=== PATIENT | female | born 1960 | race Caucasian/White ===

== ENCOUNTER → 2020-06-18 15:13 | Outpatient (BNVA) | payer MEDICAID, SELFPAY | PROVIDERS: PCP Internal Medicine; Visit Provider Hospitalist | DX: J45.40 Moderate persistent asthma, uncomplicated (principal); G47.33 Obstructive sleep apnea (adult) (pediatric); J31.0 Chronic rhinitis; Z99.89 Dependence on other enabling machines and devices; Z87.891 Personal history of nicotine dependence | CPT/HCPCS: 99212 ==

== ENCOUNTER → 2020-10-10 14:57 | Outpatient (BNVA) | payer MEDICAID, SELFPAY | PROVIDERS: PCP Internal Medicine; Visit Provider Internal Medicine Pulmonary Disease | DX: R05 Cough (principal); R07.89 Other chest pain; J45.901 Unspecified asthma with (acute) exacerbation; G47.33 Obstructive sleep apnea (adult) (pediatric); Z99.89 Dependence on other enabling machines and devices; Z88.5 Allergy status to narcotic agent | CPT/HCPCS: 99212 ==

== ENCOUNTER 2021-06-19 13:53 | Outpatient (REF) | payer MEDICAID, SELFPAY ==
--- NOTE | ~2021-06-19 | XR_ITS ---
EXAMINATION: XR CHEST CLINICAL INFORMATION: R53.83 - Other fatigue COMPARISON: Chest radiographs 12/21/2019, 02/16/2019 TECHNIQUE: 2 views of the chest were obtained. FINDINGS: The lungs are clear. There is no airspace consolidation, vascular congestion, or effusion. The costophrenic sulci are well-defined. The heart is within normal size. The hilar and mediastinal contours are normal. There is a mild pectus carinatum again seen. No acute bony abnormality. XR/XR chest 2V IMPRESSION: No acute intrathoracic disease.
--- NOTE | 2021-06-19 15:06 | PFT_ITS ---
INDICATION: Dyspnea. SPIROMETRY: FEV1 to FVC of 80% with an FEV1 of 2.32 L, which is 84% predicted and FVC of 2.89 L, which is 81% predicted. No significant response to bronchodilators noted. Maximum voluntary ventilation 99% predicted. LUNG VOLUMES: Total lung capacity 85% predicted. DIFFUSION CAPACITY: DLCO 48% predicted. COMPARISON: None. INTERPRETATION: No obstructive nor restrictive ventilatory defects identified. No significant response to bronchodilators noted. Normal maximum voluntary ventilation. Lung volumes are low normal with a total lung capacity of 85% predicted. However, the patient does have an isolated moderate diffusion impairment. Need to consider underlying pulmonary vascular conditions or anemia in addition to occult interstitial lung conditions. Clinical correlation warranted. Nathan Pantoja MD MR/MODL / [id number]
[2021-06-19 15:52] LABS: MANUAL DIFF FLAG NO
[2021-06-19 16:10] LABS: Basophils Percent Auto 0.4 % (0-2); Eosinophils Absolute Auto 0.1 X10*3/uL (0.0-0.4); Eosinophils Percent Auto 1.6 % (0-4); Hemoglobin 12.4 g/dl (12.0-16.0); Imm Gran Abs Auto 0.03 X10*3/uL (0.00-0.03); Imm Gran Pct Auto 0.4 % (0.0-0.4); Lymphocytes Percent Auto 26.4 % (20-40); Mean Corpuscular HGB Conc 31.8 g/dl (31.0-35.0); Mean Corpuscular Hemoglobin 31.2 pg (27.0-33.0); Mean Corpuscular Volume 98.2 fL (80.0-98.0); Mean Platelet Volume 10.9 fL (9.4-12.3); Monocytes Absolute Auto 0.7 X10*3/uL (0.1-1.2); Monocytes Percent Auto 9.6 % (2-11); Neutrophils Absolute Auto 4.7 x10*3/uL (2.0-8.3); Neutrophils Percent Auto 61.6 % (45-73); Platelet Count 295 X10*3/uL (160-400); Red Blood Count 3.97 X10*6/uL (4.20-5.50); Red Cell Distribution Width 12.5 % (11.0-16.0); White Blood Count 7.6 X10*3/uL (4.8-10.8)
[2021-06-19 16:33] LABS: Iron 87 mcg/dL (30-160)
[2021-06-19 16:46] LABS: Percent Iron Saturation 25 % (15-50); Total Iron Binding Capacity 354 mcg/dL (228-428); Unsaturated Iron Binding 267 ug/dL
[2021-06-19 16:54] LABS: Ferritin 45 ng/mL (10-250)
== END 2021-06-19 13:54 | disposition home or self-care (01) ==
LOC: HO.LAB 13:53
PROVIDERS: PCP Internal Medicine; Visit Provider Hospitalist
DX: R53.83 Other fatigue (principal); J45.40 Moderate persistent asthma, uncomplicated; R06.00 Dyspnea, unspecified
CPT/HCPCS: 36415; 71046; 82728; 83540; 85025; 94060; 94727; 94729; 99212

== ENCOUNTER 2021-07-09 16:30 | Outpatient (REF) | payer MEDICAID, SELFPAY ==
--- NOTE | ~2021-07-09 | CT_ITS ---
EXAMINATION: CT CHEST WITHOUT CONTRAST CLINICAL INFORMATION: Abnormal pulmonary function tests results. COMPARISON: Chest x-ray 06/19/2021. TECHNIQUE: Multidetector volumetric CT imaging of the chest was done. Axial MIP volume rendering provided. Sagittal and coronal reformatted images were obtained. This CT examination was performed using dose optimization techniques as appropriate, variously including the following: *Automated exposure control *Adjustment of mA and/or kV according to patient size (this includes techniques or standardized protocols for targeted exams where dose is matched to indication/reason for exam; i.e. 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 LUNGS: There is a 3 mm ground-glass nodule left lung apex image 112/7, a 1 mm calcified nodule in the lingula axial image 319/7. No additional nodules seen. There is no acute consolidation, mass or groundglass density. There is no interstitial thickening or bronchiectasis. MEDIASTINUM: The heart size and the great vessels are normal caliber. No coronary artery calcification seen. Central trachea and the bronchi are widely patent. No abnormal-sized mediastinal or hilar lymph nodes seen. There is no pericardial effusion. PLEURA: There is no pleural effusion. No pleural mass or thickening. AXILLA: Small shotty bilateral axillary lymph nodes seen the chest wall appears unremarkable. UPPER ABDOMEN: Visualized liver, spleen, pancreas appear unremarkable. OSSEOUS STRUCTURES: No lytic or sclerotic process seen. CT/CT chest wo con IMPRESSION: No acute cardiopulmonary process seen. There is a 3 mm ground-glass nodule left lung apex and a 1 mm calcified nodule in the lingula. Recommend follow-up as per Fleischner guidelines. Fleischner guidelines were followed.
== END 2021-07-09 16:31 | disposition home or self-care (01) ==
LOC: HO.CT 16:30
PROVIDERS: PCP Internal Medicine; Visit Provider Hospitalist
DX: R06.00 Dyspnea, unspecified (principal); R94.2 Abnormal results of pulmonary function studies
CPT/HCPCS: 71250

== ENCOUNTER → 2021-09-23 13:21 | Outpatient (BNVA) | payer MEDICAID, SELFPAY | PROVIDERS: PCP Internal Medicine; Visit Provider Hospitalist | DX: J31.0 Chronic rhinitis (principal); J45.40 Moderate persistent asthma, uncomplicated; R94.2 Abnormal results of pulmonary function studies; R91.8 Other nonspecific abnormal finding of lung field; G47.33 Obstructive sleep apnea (adult) (pediatric); Z86.16 Personal history of COVID-19; Z79.899 Other long term (current) drug therapy; Z99.89 Dependence on other enabling machines and devices | CPT/HCPCS: 99212 ==

== ENCOUNTER → 2022-01-20 13:03 | Outpatient (BNVA) | payer MEDICAID, SELFPAY | PROVIDERS: PCP Internal Medicine; Visit Provider Hospitalist | DX: G47.33 Obstructive sleep apnea (adult) (pediatric) (principal); J45.40 Moderate persistent asthma, uncomplicated; R94.2 Abnormal results of pulmonary function studies; R91.8 Other nonspecific abnormal finding of lung field; G47.00 Insomnia, unspecified; J31.0 Chronic rhinitis; Z99.89 Dependence on other enabling machines and devices | CPT/HCPCS: 99212 ==

== ENCOUNTER → 2022-05-12 15:35 | Outpatient (BNVA) | payer MEDICAID, SELFPAY | PROVIDERS: PCP Internal Medicine; Visit Provider Hospitalist | DX: J45.40 Moderate persistent asthma, uncomplicated (principal); G47.33 Obstructive sleep apnea (adult) (pediatric); R94.2 Abnormal results of pulmonary function studies; R91.8 Other nonspecific abnormal finding of lung field; G47.00 Insomnia, unspecified; J31.0 Chronic rhinitis; Z99.89 Dependence on other enabling machines and devices | CPT/HCPCS: 99212 ==

== ENCOUNTER 2022-06-09 13:05 | Outpatient (REF) | payer MEDICAID, SELFPAY ==
--- NOTE | ~2022-06-09 | CT_ITS ---
EXAMINATION: CT CHEST WITHOUT CONTRAST CLINICAL INFORMATION: Pulmonary nodule follow-up COMPARISON: Chest CT 07/09/2021 TECHNIQUE: Multidetector volumetric CT imaging of the chest was done. Axial MIP volume rendering provided. Sagittal and coronal reformatted images were obtained. This CT examination was performed using dose optimization techniques as appropriate, variously including the following: *Automated exposure control *Adjustment of mA and/or kV according to patient size (this includes techniques or standardized protocols for targeted exams where dose is matched to indication/reason for exam; i.e. extremities or head) *Use of iterative reconstruction technique DLP: 132 mGy-cm FINDINGS: The heart is normal in size. There is no pericardial effusion. No appreciable coronary artery calcifications. Normal caliber thoracic aorta. No gross mediastinal or hilar lymphadenopathy appreciated on today's noncontrast imaging. No pathologically enlarged axillary lymph nodes bilaterally. Central airways are patent. Lungs are well aerated. There is minimal dependent atelectasis. No lobar consolidation, pleural effusion or pneumothorax. Stable 3 mm groundglass nodule the left lung apex (image 90/515, series 5). Also noted is a stable 2 mm right lower lobe pulmonary nodule (image 176). No new suspicious pulmonary nodules visualized. Visualized portions of the upper abdomen are grossly unremarkable. Mild degenerative changes of the spine. CT/CT chest wo IV con IMPRESSION: A few sub-5 mm pulmonary nodules are stable. No new suspicious pulmonary nodules visualized. Fleischner guidelines were followed.
== END 2022-06-09 13:06 | disposition home or self-care (01) ==
LOC: HO.CT 13:05
PROVIDERS: PCP Internal Medicine; Visit Provider Hospitalist
DX: R91.8 Other nonspecific abnormal finding of lung field (principal)
CPT/HCPCS: 71250

== ENCOUNTER → 2022-09-01 15:08 | Outpatient (BNVA) | payer OTHER, SELFPAY | PROVIDERS: PCP Internal Medicine; Visit Provider Hospitalist | DX: G47.33 Obstructive sleep apnea (adult) (pediatric) (principal); J45.40 Moderate persistent asthma, uncomplicated; J31.0 Chronic rhinitis; R94.2 Abnormal results of pulmonary function studies; R91.8 Other nonspecific abnormal finding of lung field; G47.00 Insomnia, unspecified; Z99.89 Dependence on other enabling machines and devices | CPT/HCPCS: 99212 ==

== ENCOUNTER 2022-11-02 13:55 | Outpatient (AMB) | payer OTHER, SELFPAY ==
--- NOTE | 2022-11-02 14:05 | A.OFFVIS_ITS ---
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 Patient also has insomnia. She has been using her CPAP. The CPAP therapy has been very effective beneficial. They do help her migraines and also decrease her cardiovascular risks. If however, is hard for her to tolerate the mask because it irritates her face. We talked about using liners. She will considered doing so. The meantime the Miriam view mask is most comfortable mask for her. She cannot use a nasal mask because she opens her mouth. She also uses a mouth guard for significant grinding of her teeth. The patient will continue using the Miriam view mask at this time. However, her machine does not appear to be as effective anymore. His more than 5 years old. The CPAP pressures done appeared to be as effective for her. At this point I will request a new CPAP machine to be able to provide more autonomic pressure changes more responsive to her obstruction in addition to being able to adequately get information from her machine to adjust her machine accordingly. I will send a new replacement CPAP prescription to [employer], her [employer] company. She continues using her inhalers. She did have an x-ray during the last visit at some point at [facility] which demonstrated increased cardiac size. She is concerned about this. I have reassured her that is likely just with the x-ray appearance is but it does not have to be that her heart is actually big. Will repeat the x- ray at this time. If her x-ray still shows increased cardiac silhouette may be due in echocardiogram will be more helpful. 06/01/2022 the patient is here for a pulmonary follow-up visit. She has been struggling with getting CPAP supplies. Apparently based on her usage per the air view account she has not been needing the 4 hours necessary night. however, the patient suffers from insomnia and therefore she typically sees sleeps barely 4 hours a night. In addition to this the patient has been using her old machine because of family visiting issues every other weekend. The patient has been struggling with her insomnia. We have tried multiple agents to try to help her. She did not tolerate the Belsomra and currently back on Lunesta. I did advise her to start trazodone and the patient is willing to try it at this time. However, the patient's CPAP has been affecting beneficial. In although the patient does not Willard to 4 hours at time she does average 3 hours and 45 minutes that for her is sufficient sleep based on her significant insomnia. the fact that the patient has been using her older machine also has not been taking into account by her insurance company. Therefore, will continue to work on the patient's insomnia in order for her to be able to sleep adequately. the patient has been using CPAP for many years. The CPAP therapy has been affecting beneficial for her even with her significant insomnia. It will be a mistake for the insurance company to failed to cover this very important therapy for the patient that she has had for many years because of her issues with insomnia and other comorbidities. from a respiratory status the patient has been doing fairly well. She continues on the Alvesco and does have a rescue inhaler that she seldom uses. She has been developing some chest congestion and cough. [id number] severity. I did ask her to try some Mucinex [id number]. If the patient is not better or if she worsens she can start a short course of antibiotics. 09/01/2022 the patient is here for pulmonary follow-up visit. Overall the patient is doing well. She is using the CPAP every night. His CPAP therapy has been affecting beneficial. She does use it for more than 4 hours a night. We did download her machine. Appears that for the last month she has had 80% compliance. Her AHI is 0.6. She does like her mask. Sometimes she has a hard time going back to sleep with the CPAP when she is awake because she is typically a light sleeper and does not sleep the whole night. She has been getting supplies from the [facility]. Her sleep has been still difficult. She seems to tolerate illness the best. She did not try the trazodone because she did have orthostatic hypotension in the past when she used it. And the Belsomra resulted in severe nightmares. The patient has been using her inhalers with good results. Has not required her rescue inhaler and has not required any prednisone. We did review her last CT scan of the chest that she had back in June 2022 demonstrating stable pulmonary nodules. She will need [address] scan in a year's time to make sure there is stability of the pulmonary nodules. Therefore, we will have her return in a year's time after her next CT scan. 11/02/2022 the patient is here for a pulmonary follow-up visit. The patient continues to do fairly well from a respiratory status. She does have significant allergies specially to grass clippings N2 other environmental exp osures. Therefore she does have a hard time going outside specially there more in the lawn. I did provide her a mask that she can not use it does locations. The patient does continue to use her respiratory therapy. She was sick with bronchitis and she was provided antibiotics and also a prednisone course that did improve her symptoms. She also use hjso-[id number]-plagpeo cough syrup. in regards to her sleep apnea, the patient has been using her CPAP every night and has been very effective in beneficial. She does have very limited sleeping as she suffers from insomnia. Sometimes she sleeps only 3 hours. Therefore, based on her poor sleeping habits sometime she is not able to complete the 4 hours required of using her CPAP since she does not sleep 4 hours a night. We have provided her with multiple sleep aids but all with significant adverse effects and therefore she is avoiding additional adverse effects of medications. She has been trying behavioral sleep therapy with white noise which appears to be a little bit more helpful. Still, the patient gets only about 3 hours a night of sleep. [facility] Medical History (Updated 01/20/22 @ 20:42 by Nathan Pantoja MD) Abnormal diffusion capacity determined by pulmonary function test Asthma Chronic rhinitis Dyspnea Fatigue Insomnia ODETTE on CPAP Family History Father No problems noted. Social History (Updated 06/19/21 @ 15:11 by ADORE Garcia) Patient Tobacco Use Status: Former Tobacco user Tobacco use type: Cigarette Years Smoked: 15 years Review of Systems Const Reports daytime sleepiness, Reports difficulty sleeping, Denies fatigue and Denies night sweats ENT Denies change in voice, Denies lip swelling, Denies mouth pain, Reports nasal congestion, Reports nasal discharge and Denies tongue swelling Card Denies chest pain and Denies dyspnea Resp Reports chest congestion, Reports cough, Denies hemoptysis and Denies dyspnea GI Denies abdominal pain Musc Denies no additional complaints Neuro Denies Neuro-related abnormal movements Psych Denies no additional complaints and Reports difficulty concentrating Endo Denies fatigue Vic/Lymph Denies easy bleeding and Denies lymphadenopathy Aller/Immun Denies lip swelling and Denies tongue swelling Physical Exam Vital Signs: Last Vital Signs Pulse 60 11/02/22 14:06 BP 128/70 11/02/22 14:06 Pulse Ox 98 11/02/22 14:06 Oxygen Delivery Method Room Air 11/02/22 14:06 BMI result Body Mass Index 23.4 Const General: alert Eyes Pupils: Equal, round and reactive pupils present Neck Neck: Yes normal visual inspection, Yes full ROM and Yes no lymphadenopathy Chest Chest palpation & inspection: normal inspection of the chest Resp Auscultation: no crackles and diminished lung sounds Cardio Rate: regular rate Rhythm: regular rhythm Heart sounds: S1 normal heart sound present and S2 normal heart sound present GI Palpation (GI): Soft to palpation and nontender Auscultation: normal bowel sounds General: Yes no CVA tenderness Back/Spine/Pelvis Back: no CVA tenderness Skin General skin exam: rashes and/or lesions noted Neuro Cranial nerves: Yes Equal, round and reactive pupils present Assessment & Plan Assessment & Plan (1) ODETTE on CPAP: Code(s): G47.33 - Obstructive sleep apnea (adult) (pediatric); Z99.89 - Dependence on other enabling machines and devices (2) Asthma: Code(s): J45.909 - Unspecified asthma, uncomplicated Qualifiers: Asthma complication type: uncomplicated Asthma persistence: persistent Asthma severity: moderate Qualified Code(s): J45.40 - Moderate persistent asthma, uncomplicated (3) Abnormal diffusion capacity determined by pulmonary function test: Comment: Moderate isolated diffusion impairment Code(s): R94.2 - Abnormal results of pulmonary function studies (4) Pulmonary nodules: Code(s): R91.8 - Other nonspecific abnormal finding of lung field (5) Insomnia: Code(s): G47.00 - Insomnia, unspecified (6) Chronic rhinitis: Code(s): J31.0 - Chronic rhinitis Plan Continue Alvesco nebulizer MONICO as needed Mucinex OTC Continue APAP every night, Although, she suffers from Insomnia and most nights only gets 3 hours of sleep. Therefore, 3hours of use at night is adequate for her usage compliance Lunesta as needed, causing irritability CT scan July 2023 F/U 6-8 months Medications: Refilled methylprednisolone (Medrol (Scott)) PO PER PKG DIR 6 days 21 ea 0RF Coding Level of Care Code Est Pt Level 4 (55107) Diagnoses ODETTE on CPAP G47.33; Z99.89 Asthma J45.40 Asthma complication type: uncomplicated Asthma persistence: persistent Asthma severity: moderate Abnormal diffusion capacity determined by pulmonary function test R94.2 Pulmonary nodules R91.8 Insomnia G47.00 Chronic rhinitis J31.0 Time Spent (min) 20
[2022-11-02 14:06] VITALS: BP 128/70; PULSE 60; O2SAT 98; BMI 23.4
== END 2022-11-02 14:31 | disposition home or self-care (01) ==
PROVIDERS: PCP Internal Medicine; Visit Provider Hospitalist
DX: G47.33 Obstructive sleep apnea (adult) (pediatric) (principal); Z99.89 Dependence on other enabling machines and devices; J45.40 Moderate persistent asthma, uncomplicated; R94.2 Abnormal results of pulmonary function studies; R91.8 Other nonspecific abnormal finding of lung field; G47.00 Insomnia, unspecified; J31.0 Chronic rhinitis
CPT/HCPCS: 99214

== ENCOUNTER → 2022-11-02 13:55 | Outpatient (BNVA) | payer OTHER, SELFPAY | PROVIDERS: PCP Internal Medicine; Visit Provider Hospitalist | DX: J45.40 Moderate persistent asthma, uncomplicated (principal); J31.0 Chronic rhinitis; G47.33 Obstructive sleep apnea (adult) (pediatric); G47.00 Insomnia, unspecified; R94.2 Abnormal results of pulmonary function studies; R91.8 Other nonspecific abnormal finding of lung field; Z99.89 Dependence on other enabling machines and devices | CPT/HCPCS: 99212 ==

== ENCOUNTER 2023-02-23 13:05 | Outpatient (AMB) | payer OTHER, SELFPAY ==
--- NOTE | 2023-02-23 13:09 | MHC.OFFVIS ---
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 Patient also has insomnia. She has been using her CPAP. The CPAP therapy has been very effective beneficial. They do help her migraines and also decrease her cardiovascular risks. If however, is hard for her to tolerate the mask because it irritates her face. We talked about using liners. She will considered doing so. The meantime the Miriam view mask is most comfortable mask for her. She cannot use a nasal mask because she opens her mouth. She also uses a mouth guard for significant grinding of her teeth. The patient will continue using the Miriam view mask at this time. However, her machine does not appear to be as effective anymore. His more than 5 years old. The CPAP pressures done appeared to be as effective for her. At this point I will request a new CPAP machine to be able to provide more autonomic pressure changes more responsive to her obstruction in addition to being able to adequately get information from her machine to adjust her machine accordingly. I will send a new replacement CPAP prescription to [facility], her [employer] company. She continues using her inhalers. She did have an x-ray during the last visit at some point at [facility] which demonstrated increased cardiac size. She is concerned about this. I have reassured her that is likely just with the x-ray appearance is but it does not have to be that her heart is actually big. Will repeat the x-ray at this time. If her x-ray still shows increased cardiac silhouette may be due in echocardiogram will be more helpful. 06/01/2022 the patient is here for a pulmonary follow-up visit. She has been struggling with getting CPAP supplies. Apparently based on her usage per the air view account she has not been needing the 4 hours necessary night. however, the patient suffers from insomnia and therefore she typically sees sleeps barely 4 hours a night. In addition to this the patient has been using her old machine because of family visiting issues every other weekend. The patient has been struggling with her insomnia. We have tried multiple agents to try to help her. She did not tolerate the Belsomra and currently back on Lunesta. I did advise her to start trazodone and the patient is willing to try it at this time. However, the patient's CPAP has been affecting beneficial. In although the patient does not Willard to 4 hours at time she does average 3 hours and 45 minutes that for her is sufficient sleep based on her significant insomnia. the fact that the patient has been using her older machine also has not been taking into account by her insurance company. Therefore, will continue to work on the patient's insomnia in order for her to be able to sleep adequately. the patient has been using CPAP for many years. The CPAP therapy has been affecting beneficial for her even with her significant insomnia. It will be a mistake for the insurance company to failed to cover this very important therapy for the patient that she has had for many years because of her issues with insomnia and other comorbidities. from a respiratory status the patient has been doing fairly well. She continues on the Alvesco and does have a rescue inhaler that she seldom uses. She has been developing some chest congestion and cough. Fkyk-sh-yvkshkig severity. I did ask her to try some Mucinex [id number]. If the patient is not better or if she worsens she can start a short course of antibiotics. 09/01/2022 the patient is here for pulmonary follow-up visit. Overall the patient is doing well. She is using the CPAP every night. His CPAP therapy has been affecting beneficial. She does use it for more than 4 hours a night. We did download her machine. Appears that for the last month she has had 80% compliance. Her AHI is 0.6. She does like her mask. Sometimes she has a hard time going back to sleep with the CPAP when she is awake because she is typically a light sleeper and does not sleep the whole night. She has been getting supplies from the [employer]. Her sleep has been still difficult. She seems to tolerate illness the best. She did not try the trazodone because she did have orthostatic hypotension in the past when she used it. And the Belsomra resulted in severe nightmares. The patient has been using her inhalers with good results. Has not required her rescue inhaler and has not required any prednisone. We did review her last CT scan of the chest that she had back in June 2022 demonstrating stable pulmonary nodules. She will need [address] scan in a year's time to make sure there is stability of the pulmonary nodules. Therefore, we will have her return in a year's time after her next CT scan. 11/02/2022 the patient is here for a pulmonary follow-up visit. The patient continues to do fairly well from a respiratory status. She does have significant allergies specially to grass clippings N2 other environmental exposures. Therefore she does have a hard time going outside specially there more in the lawn. I did provide her a mask that she can not use it does locations. The patient does continue to use her respiratory therapy. She was sick with bronchitis and she was provided antibiotics and also a prednisone course that did improve her symptoms. She also use [id number]-[id number] cough syrup. in regards to her sleep apnea, the patient has been using her CPAP every night and has been very effective in beneficial. She does have very limited sleeping as she suffers from insomnia. Sometimes she sleeps only 3 hours. Therefore, based on her poor sleeping habits sometime she is not able to complete the 4 hours required of using her CPAP since she does not sleep 4 hours a night. We have provided her with multiple sleep aids but all with significant adverse effects and therefore she is avoiding additional adverse effects of medications. She has been trying behavioral sleep therapy with white noise which appears to be a little bit more helpful. Still, the patient gets only about 3 hours a night of sleep. 02/23/2023 the patient is here for a pulmonary follow-up visit. She was recently evaluated [facility] which she was having some substernal chest the ER she did undergo a CTA. We did have the report. Demonstrated some small airways disease due to some mosaic pattern. But otherwise no other acute illness noted. The patient was treated for costochondritis and she was discharged home. Cardiac studies were all normal. She still has some costochondral joint discomfort but much improved. The patient also has been having some increasing coughing primarily because of the which stopping the basement. Will go ahead and maximize her respiratory therapy. She has a hard time tolerating beta agonist therapy. The patient also has been using her CPAP. The CPAP therapy continues to be affecting beneficial. She does not sleep more than 3-4 hours a night so therefore she does use it every night but uses it effective for the amount of sleep that she has. Based on the fact that she only sleeps about 3 for hours a night her use age is closer to 80%. The CPAP therapy continues to be affecting beneficial. [facility] Medical History (Updated 02/23/23 @ 13:17 by Nathan Pantoja MD) Insomnia Dyspnea Abnormal diffusion capacity determined by pulmonary function test Fatigue Chronic rhinitis ODETTE on CPAP Asthma Family History Father No problems noted. (Updated 06/19/21 @ 15:11 by Vidya Brumfield [facility]) Patient Tobacco Use Status: Former Tobacco user Tobacco use type: Cigarette Years Smoked: 15 years Review of Systems Const Reports daytime sleepiness, Reports difficulty sleeping, Denies fatigue and Denies night sweats ENT Denies change in voice, Denies lip swelling, Denies mouth pain, Reports nasal congestion, Reports nasal discharge and Denies tongue swelling Card Denies chest pain and Denies dyspnea Resp Reports cough, Denies hemoptysis and Denies dyspnea GI Denies abdominal pain Musc Denies no additional complaints Neuro Denies Neuro-related abnormal movements Psych Denies no additional complaints and Reports difficulty concentrating Endo Denies fatigue Vic/Lymph Denies easy bleeding and Denies lymphadenopathy Aller/Immun Denies lip swelling and Denies tongue swelling Physical Exam Vital Signs: Last Vital Signs Pulse 62 02/23/23 13:10 BP 118/70 02/23/23 13:10 Pulse Ox 97 02/23/23 13:10 Oxygen Delivery Method Room Air 02/23/23 13:10 BMI result Body Mass Index 23.4 Const General: alert Eyes Pupils: Equal, round and reactive pupils present Neck Neck: Yes normal visual inspection, Yes full ROM and Yes no lymphadenopathy Chest Chest palpation & inspection: tenderness sternum and costal cartilage Resp Auscultation: no crackles and diminished lung sounds Cardio Rate: regular rate Rhythm: regular rhythm Heart sounds: S1 normal heart sound present and S2 normal heart sound present GI Palpation (GI): Soft to palpation and nontender Auscultation: normal bowel sounds General: Yes no CVA tenderness Back/Spine/Pelvis Back: no CVA tenderness Skin General skin exam: rashes and/or lesions noted Neuro Cranial nerves: Yes Equal, round and reactive pupils present Assessment & Plan Assessment & Plan (1) ODETTE on CPAP: Code(s): G47.33 - Obstructive sleep apnea (adult) (pediatric); Z99.89 - Dependence on other enabling machines and devices (2) Asthma: Code(s): J45.909 - Unspecified asthma, uncomplicated Qualifiers: Asthma severity: moderate Asthma persistence: persistent Asthma complication type: uncomplicated Qualified Code(s): J45.40 - Moderate persistent asthma, uncomplicated (3) Abnormal diffusion capacity determined by pulmonary function test: Comment: Moderate isolated diffusion impairment Code(s): R94.2 - Abnormal results of pulmonary function studies (4) Pulmonary nodules: Code(s): R91.8 - Other nonspecific abnormal finding of lung field (5) Insomnia: Code(s): G47.00 - Insomnia, unspecified Qualifiers: Insomnia type: primary Qualified Code(s): F51.01 - Primary insomnia (6) Chronic rhinitis: Code(s): J31.0 - Chronic rhinitis Plan Continue Alvesco start Spiriva daily MONICO as needed Mucinex OTC Continue APAP every night (typicall only sleep 3-4 hours a night. 80%usage based on her minimal sleep) Lunesta as needed, causing irritability reviewed CTA at [facility], no nodules. No need for additional CT chest F/U 4-6 months Medications: New tiotropium bromide 2.5 mcg/actuation (Spiriva Respimat) 2 puffs inhalation DAILY 1 ea 11RF 30 days Coding Level of Care Code Est Pt Level 4 (65682) Diagnoses ODETTE on CPAP G47.33; Z99.89 Moderate persistent asthma without complication J45.40 Asthma severity: moderate Asthma persistence: persistent Asthma complication type: uncomplicated Abnormal diffusion capacity determined by pulmonary function test R94.2 Pulmonary nodules R91.8 Primary insomnia F51.01 Insomnia type: primary Chronic rhinitis J31.0 Time Spent (min) 17
[2023-02-23 13:10] VITALS: BP 118/70; PULSE 62; O2SAT 97; BMI 23.4
== END 2023-02-23 13:36 | disposition home or self-care (01) ==
PROVIDERS: PCP Internal Medicine; Visit Provider Hospitalist
DX: G47.33 Obstructive sleep apnea (adult) (pediatric) (principal); Z99.89 Dependence on other enabling machines and devices; J45.40 Moderate persistent asthma, uncomplicated; R94.2 Abnormal results of pulmonary function studies; R91.8 Other nonspecific abnormal finding of lung field; F51.01 Primary insomnia; J31.0 Chronic rhinitis
CPT/HCPCS: 99214

== ENCOUNTER → 2023-02-23 13:05 | Outpatient (BNVA) | payer OTHER, SELFPAY | PROVIDERS: PCP Internal Medicine; Visit Provider Hospitalist | DX: J45.40 Moderate persistent asthma, uncomplicated (principal); R94.2 Abnormal results of pulmonary function studies; R91.8 Other nonspecific abnormal finding of lung field; J31.0 Chronic rhinitis; F51.01 Primary insomnia; G47.33 Obstructive sleep apnea (adult) (pediatric); Z99.89 Dependence on other enabling machines and devices | CPT/HCPCS: 99212 ==

== ENCOUNTER 2023-08-03 13:58 | Outpatient (AMB) | payer OTHER, SELFPAY ==
[2023-08-03 14:03] VITALS: PULSE 64; O2SAT 96; BMI 23.4
--- NOTE | 2023-08-03 14:03 | MHC.OFFVIS ---
Vital Signs 08/03/23 14:03 Height 5 ft 6 in Weight 145 lb BMI 23.4 Pulse 64 Pulse Source Pulse Oximeter Pulse Oximetry (%) 96 Oxygen Delivery Method Room Air Intake Visit Reasons: Obstructive sleep apnea Driver'S Education Instructor Required: No Allergies morphine Allergy (Severe, Verified 08/03/23 14:04) Heart Palpitations HPI Comments Details: The patient is a 62-year-old woman known asthma addition to obstructive sleep apnea with severe migraines. Patient also has insomnia. She has been using her CPAP. The CPAP therapy has been very effective beneficial. They do help her migraines and also decrease her cardiovascular risks. If however, is hard for her to tolerate the mask because it irritates her face. We talked about using liners. She will considered doing so. The meantime the Miriam view mask is most comfortable mask for her. She cannot use a nasal mask because she opens her mouth. She also uses a mouth guard for significant grinding of her teeth. The patient will continue using the Miriam view mask at this time. However, her machine does not appear to be as effective anymore. His more than 5 years old. The CPAP pressures done appeared to be as effective for her. At this point I will request a new CPAP machine to be able to provide more autonomic pressure changes more responsive to her obstruction in addition to being able to adequately get information from her machine to adjust her machine accordingly. I will send a new replacement CPAP prescription to [employer], her [employer] company. She continues using her inhalers. She did have an x-ray during the last visit at some point at [facility] which demonstrated increased cardiac size. She is concerned about this. I have reassured her that is likely just with the x-ray appearance is but it does not have to be that her heart is actually big. Will repeat the x-ray at this time. If her x-ray still shows increased cardiac silhouette may be due in echocardiogram will be more helpful. 06/01/2022 the patient is here for a pulmonary follow-up visit. She has been struggling with getting CPAP supplies. Apparently based on her usage per the air view account she has not been needing the 4 hours necessary night. however, the patient suffers from insomnia and therefore she typically sees sleeps barely 4 hours a night. In addition to this the patient has been using her old machine because of family visiting issues every other weekend. The patient has been struggling with her insomnia. We have tried multiple agents to try to help her. She did not tolerate the Belsomra and currently back on Lunesta. I did advise her to start trazodone and the patient is willing to try it at this time. However, the patient's CPAP has been affecting beneficial. In although the patient does not Willard to 4 hours at time she does average 3 hours and 45 minutes that for her is sufficient sleep based on her significant insomnia. the fact that the patient has been using her older machine also has not been taking into account by her insurance company. Therefore, will continue to work on the patient's insomnia in order for her to be able to sleep adequately. the patient has been using CPAP for many years. The CPAP therapy has been affecting beneficial for her even with her significant insomnia. It will be a mistake for the insurance company to failed to cover this very important therapy for the patient that she has had for many years because of her issues with insomnia and other comorbidities. from a respiratory status the patient has been doing fairly well. She continues on the Alvesco and does have a rescue inhaler that she seldom uses. She has been developing some chest congestion and cough. [id number]-uy-gtmlzgxr severity. I did ask her to try some Mucinex [id number]. If the patient is not better or if she worsens she can start a short course of antibiotics. 09/01/2022 the patient is here for pulmonary follow-up visit. Overall the patient is doing well. She is using the CPAP every night. His CPAP therapy has been affecting beneficial. She does use it for more than 4 hours a night. We did download her machine. Appears that for the last month she has had 80% compliance. Her AHI is 0.6. She does like her mask. Sometimes she has a hard time going back to sleep with the CPAP when she is awake because she is typically a light sleeper and does not sleep the whole night. She has been getting supplies from the [employer]. Her sleep has been still difficult. She seems to tolerate illness the best. She did not try the trazodone because she did have orthostatic hypotension in the past when she used it. And the Belsomra resulted in severe nightmares. The patient has been using her inhalers with good results. Has not required her rescue inhaler and has not required any prednisone. We did review her last CT scan of the chest that she had back in June 2022 demonstrating stable pulmonary nodules. She will need [address] scan in a year's time to make sure there is stability of the pulmonary nodules. Therefore, we will have her return in a year's time after her next CT scan. 11/02/2022 the patient is here for a pulmonary follow-up visit. The patient continues to do fairly well from a respiratory status. She does have significant allergies specially to grass clippings N2 other environmental exposures. Therefore she does have a hard time going outside specially there more in the lawn. I did provide her a mask that she can not use it does locations. The patient does continue to use her respiratory therapy. She was sick with bronchitis and she was provided antibiotics and also a prednisone course that did improve her symptoms. She also use [id number]-[id number] cough syrup. in regards to her sleep apnea, the patient has been using her CPAP every night and has been very effective in beneficial. She does have very limited sleeping as she suffers from insomnia. Sometimes she sleeps only 3 hours. Therefore, based on her poor sleeping habits sometime she is not able to complete the 4 hours required of using her CPAP since she does not sleep 4 hours a night. We have provided her with multiple sleep aids but all with significant adverse effects and therefore she is avoiding additional adverse effects of medications. She has been trying behavioral sleep therapy with white noise which appears to be a little bit more helpful. Still, the patient gets only about 3 hours a night of sleep. 02/23/2023 the patient is here for a pulmonary follow-up visit. She was recently evaluated [facility] which she was having some substernal chest the ER she did undergo a CTA. We did have the report. Demonstrated some small airways disease due to some mosaic pattern. But otherwise no other acute illness noted. The patient was treated for costochondritis and she was discharged home. Cardiac studies were all normal. She still has some costochondral joint discomfort but much improved. The patient also has been having some increasing coughing primarily because of the which stopping the basement. Will go ahead and maximize her respiratory therapy. She has a hard time tolerating beta agonist therapy. The patient also has been using her CPAP. The CPAP therapy continues to be affecting beneficial. She does not sleep more than 3-4 hours a night so therefore she does use it every night but uses it effective for the amount of sleep that she has. Based on the fact that she only sleeps about 3 for hours a night her use age is closer to 80%. The CPAP therapy continues to be affecting beneficial. 08/03/2023 the patient is here for a pulmonary follow-up visit. Overall the doing well. No further episodes of chest pain which is reassuring. Still anxious at times. She does take the lorazepam at nighttime. She has been dealing with a lot of stress because of her 's health. In meantime she still struggles with sleep. She still sleeps minimal hours between 3-4 hours a night. After that she wakes up and she stays active. The patient does use her CPAP at nighttime CPAP therapy continues to be affecting beneficial. She does use it more than 90% of the time while she is sleeping. But since her sleep cycles so short it does not meet the criteria that we have on the overall population. She does have another machine. She does swab rooms and she uses her own machine when she sleeps in a different room. When she does that the machine is not recorded to the clot is recording to the card. She did bring that in and confirms the fact that she has been using the machine every night to sleep with. Respiratory pinto she is doing okay. Sleep she sometimes still uses the Lunesta as needed. Although she does feel irritable after using it she tries to avoid. We did again looked a report from her CTA. No additional imaging warranted. [facility] Medical History (Updated 02/23/23 @ 13:17 by Nathan Pantoja MD) Insomnia Dyspnea Abnormal diffusion capacity determined by pulmonary function test Fatigue Chronic rhinitis ODETTE on CPAP Asthma Family History Father No problems noted. Social History (Updated 06/19/21 @ 15:11 by ADORE Garcia) Patient Tobacco Use Status: Former Tobacco user Tobacco use type: Cigarette Years Smoked: 15 years Review of Systems Const Reports difficulty sleeping, Denies fatigue and Denies night sweats ENT Denies change in voice, Denies lip swelling, Denies mouth pain, Reports nasal congestion, Reports nasal discharge and Denies tongue swelling Card Denies chest pain and Denies dyspnea Resp Reports cough, Denies hemoptysis and Denies dyspnea GI Denies abdominal pain Musc Denies no additional complaints Neuro Denies Neuro-related abnormal movements Psych Denies no additional complaints and Reports difficulty concentrating Endo Denies fatigue Vic/Lymph Denies easy bleeding and Denies lymphadenopathy Aller/Immun Denies lip swelling and Denies tongue swelling Physical Exam Vital Signs: Last Vital Signs Pulse 64 08/03/23 14:03 Pulse Ox 96 08/03/23 14:03 Oxygen Delivery Method Room Air 08/03/23 14:03 BMI result Body Mass Index 23.4 Const General: alert Eyes Pupils: Equal, round and reactive pupils present Neck Neck: Yes normal visual inspection, Yes full ROM and Yes no lymphadenopathy Chest Chest palpation & inspection: tenderness sternum and costal cartilage Resp Auscultation: no crackles and diminished lung sounds Cardio Rate: regular rate Rhythm: regular rhythm Heart sounds: S1 normal heart sound present and S2 normal heart sound present GI Palpation (GI): Soft to palpation and nontender Auscultation: normal bowel sounds General: Yes no CVA tenderness Back/Spine/Pelvis Back: no CVA tenderness Skin General skin exam: rashes and/or lesions noted Neuro Cranial nerves: Yes Equal, round and reactive pupils present Assessment & Plan Assessment & Plan (1) ODETTE on CPAP: Code(s): G47.33 - Obstructive sleep apnea (adult) (pediatric); Z99.89 - Dependence on other enabling machines and devices Category: Medical (2) Asthma: Code(s): J45.909 - Unspecified asthma, uncomplicated Category: Medical Qualifiers: Asthma complication type: uncomplicated Asthma persistence: persistent Asthma severity: moderate Qualified Code(s): J45.40 - Moderate persistent asthma, uncomplicated (3) Abnormal diffusion capacity determined by pulmonary function test: Comment: Moderate isolated diffusion impairment Code(s): R94.2 - Abnormal results of pulmonary function studies Category: Medical (4) Pulmonary nodules: Code(s): R91.8 - Other nonspecific abnormal finding of lung field Category: Medical (5) Insomnia: Code(s): G47.00 - Insomnia, unspecified Category: Medical Qualifiers: Insomnia type: primary Qualified Code(s): F51.01 - Primary insomnia (6) Chronic rhinitis: Code(s): J31.0 - Chronic rhinitis Category: Medical Plan Continue Alvesco stopped Spiriva daily MONICO as needed Mucinex OTC Continue APAP every night (typicall only sleep 3-4 hours a night. 80%usage based on her minimal sleep) Lunesta as needed, causing irritability reviewed CTA at [facility], no nodules. No need for additional CT chest F/U 12 months Coding Level of Care Code Est Pt Level 4 (67001) Diagnoses ODETTE on CPAP G47.33; Z99.89 Moderate persistent asthma without complication J45.40 Asthma complication type: uncomplicated Asthma persistence: persistent Asthma severity: moderate Abnormal diffusion capacity determined by pulmonary function test R94.2 Pulmonary nodules R91.8 Primary insomnia F51.01 Insomnia type: primary Chronic rhinitis J31.0 Time Spent (min) 17
== END 2023-08-03 14:34 | disposition home or self-care (01) ==
PROVIDERS: PCP Internal Medicine; Visit Provider Hospitalist
DX: G47.33 Obstructive sleep apnea (adult) (pediatric) (principal); Z99.89 Dependence on other enabling machines and devices; J45.40 Moderate persistent asthma, uncomplicated; R94.2 Abnormal results of pulmonary function studies; R91.8 Other nonspecific abnormal finding of lung field; F51.01 Primary insomnia; J31.0 Chronic rhinitis
CPT/HCPCS: 99214

== ENCOUNTER → 2023-08-03 13:58 | Outpatient (BNVA) | payer OTHER, SELFPAY | PROVIDERS: PCP Internal Medicine; Visit Provider Hospitalist | DX: G47.33 Obstructive sleep apnea (adult) (pediatric) (principal); J45.40 Moderate persistent asthma, uncomplicated; J31.0 Chronic rhinitis; R94.2 Abnormal results of pulmonary function studies; R91.8 Other nonspecific abnormal finding of lung field; F51.01 Primary insomnia; Z99.89 Dependence on other enabling machines and devices | CPT/HCPCS: 99212 ==

== ENCOUNTER 2024-02-08 13:15 | Outpatient (AMB) | payer OTHER, SELFPAY ==
[2024-02-08 13:19] VITALS: BP 118/68; PULSE 70; O2SAT 98
--- NOTE | 2024-02-08 13:19 | MHC.OFFVIS ---
Vital Signs 02/08/24 13:19 Weight 151 lb 0.266 oz BP 118/68 Blood Pressure Location Rt brachial Position Sitting Pulse 70 Pulse Source Pulse Oximeter Pulse Oximetry (%) 98 Oxygen Delivery Method Room Air Intake Visit Reasons: Obstructive sleep apnea Allergies morphine Allergy (Severe, Verified 02/08/24 13:22) Heart Palpitations Medication List - Last Reconciled 02/08/24 by Margarita Stanford, VERN atenolol 50 mg PO BID cetirizine (Zyrtec) 10 mg PO DAILY 30 days ciclesonide 80 mcg/actuation (Alvesco) 1 puff PO BID CPAP (CPAP Machine/Device) As directed CPAP (CPAP Machine/Device) As directed eszopiclone (Lunesta) 3 mg PO BEDTIME 30 days levalbuterol tartrate 45 mcg/actuation 2 puffs inhalation Q4-6H PRN levothyroxine (Synthroid) 150 mcg PO DAILY lorazepam 0.5 mg PO BEDTIME PRN propranolol XL 120 mg PO DAILY rizatriptan (Maxalt) 10 mg PO Q2-4H PRN simvastatin 10 mg PO BEDTIME tiotropium bromide 2.5 mcg/actuation (Spiriva Respimat) 2 puffs inhalation DAILY 30 days HPI Comments Details: The patient is a 63-year-old woman known asthma addition to obstructive sleep apnea with severe migraines. Patient also has insomnia. She has been using her CPAP. The CPAP therapy has been very effective beneficial. They do help her migraines and also decrease her cardiovascular risks. If however, is hard for her to tolerate the mask because it irritates her face. We talked about using liners. She will considered doing so. The meantime the Miriam view mask is most comfortable mask for her. She cannot use a nasal mask because she opens her mouth. She also uses a mouth guard for significant grinding of her teeth. The patient will continue using the Miriam view mask at this time. However, her machine does not appear to be as effective anymore. His more than 5 years old. The CPAP pressures done appeared to be as effective for her. At this point I will request a new CPAP machine to be able to provide more autonomic pressure changes more responsive to her obstruction in addition to being able to adequately get information from her machine to adjust her machine accordingly. I will send a new replacement CPAP prescription to [employer], her DME company. She continues using her inhalers. She did have an x-ray during the last visit at some point at [facility] which demonstrated increased cardiac size. She is concerned about this. I have reassured her that is likely just with the x-ray appearance is but it does not have to be that her heart is actually big. Will repeat the x-ray at this time. If her x-ray still shows increased cardiac silhouette may be due in echocardiogram will be more helpful. 02/23/2023 the patient is here for a pulmonary follow-up visit. She was recently evaluated [facility] which she was having some substernal chest the ER she did undergo a CTA. We did have the report. Demonstrated some small airways disease due to some mosaic pattern. But otherwise no other acute illness noted. The patient was treated for costochondritis and she was discharged home. Cardiac studies were all normal. She still has some costochondral joint discomfort but much improved. The patient also has been having some increasing coughing primarily because of the which stopping the basement. Will go ahead and maximize her respiratory therapy. She has a hard time tolerating beta agonist therapy. The patient also has been using her CPAP. The CPAP therapy continues to be affecting beneficial. She does not sleep more than 3-4 hours a night so therefore she does use it every night but uses it effective for the amount of sleep that she has. Based on the fact that she only sleeps about 3 for hours a night her use age is closer to 80%. The CPAP therapy continues to be affecting beneficial. 08/03/2023 the patient is here for a pulmonary follow-up visit. Overall the doing well. No further episodes of chest pain which is reassuring. Still anxious at times. She does take the lorazepam at nighttime. She has been dealing with a lot of stress because of her 's health. In meantime she still struggles with sleep. She still sleeps minimal hours between 3-4 hours a night. After that she wakes up and she stays active. The patient does use her CPAP at nighttime CPAP therapy continues to be affecting beneficial. She does use it more than 90% of the time while she is sleeping. But since her sleep cycles so short it does not meet the criteria that we have on the overall population. She does have another machine. She does swab rooms and she uses her own machine when she sleeps in a different room. When she does that the machine is not recorded to the clot is recording to the card. She did bring that in and confirms the fact that she has been using the machine every night to sleep with. Respiratory pinto she is doing okay. Sleep she sometimes still uses the Lunesta as needed. Although she does feel irritable after using it she tries to avoid. We did again looked a report from her CTA. No additional imaging warranted. 02/08/2024 the patient is here for a pulmonary follow-up visit. She is doing well from a respiratory status. She continues uses CPAP every night. More than 4 hours a night when she can. Although she does not sleep a lot. Now that she is dealing with her 's sickly cancer diagnosis is very hard for her to get adequate sleep. The patient continues use respiratory medications with good effect. She did develop a cough. She was exposed to sick contact when grandson came over he was then diagnosed with pneumonia. I gave her a prescription of doxycycline that she can start if her cough gets worse. Otherwise the patient follow-up in 6 months. [facility] Medical History (Updated 12/29/23 @ 08:35 by Nathan Pantoja MD) Dysphagia Head and neck cancer Insomnia Dyspnea Abnormal diffusion capacity determined by pulmonary function test Fatigue Chronic rhinitis ODETTE on CPAP Asthma Family History Father No problems noted. Social History (Updated 06/19/21 @ 15:11 by Vidya Brumfield [facility]) Patient Tobacco Use Status: Former Tobacco user Tobacco use type: Cigarette Years Smoked: 15 years Review of Systems Const Reports difficulty sleeping, Denies fatigue and Denies night sweats ENT Denies change in voice, Denies lip swelling, Denies mouth pain, Reports nasal congestion, Reports nasal discharge and Denies tongue swelling Card Denies chest pain and Denies dyspnea Resp Reports cough, Denies hemoptysis and Denies dyspnea GI Denies abdominal pain Musc Denies no additional complaints Neuro Denies Neuro-related abnormal movements Psych Denies no additional complaints and Reports difficulty concentrating Endo Denies fatigue Vic/Lymph Denies easy bleeding and Denies lymphadenopathy Aller/Immun Denies lip swelling and Denies tongue swelling Physical Exam Vital Signs: Last Vital Signs Pulse 70 02/08/24 13:19 BP 118/68 02/08/24 13:19 Pulse Ox 98 02/08/24 13:19 Oxygen Delivery Method Room Air 02/08/24 13:19 Const General: alert Eyes Pupils: Equal, round and reactive pupils present Neck Neck: Yes normal visual inspection, Yes full ROM and Yes no lymphadenopathy Chest Chest palpation & inspection: tenderness sternum and costal cartilage Resp Auscultation: no crackles and diminished lung sounds Cardio Rate: regular rate Rhythm: regular rhythm Heart sounds: S1 normal heart sound present and S2 normal heart sound present GI Palpation (GI): Soft to palpation and nontender Auscultation: normal bowel sounds General: Yes no CVA tenderness Back/Spine/Pelvis Back: no CVA tenderness Skin General skin exam: rashes and/or lesions noted Neuro Cranial nerves: Yes Equal, round and reactive pupils present Assessment & Plan Assessment & Plan (1) ODETTE on CPAP: Code(s): G47.33 - Obstructive sleep apnea (adult) (pediatric); Z99.89 - Dependence on other enabling machines and devices Category: Medical (2) Asthma: Code(s): J45.909 - Unspecified asthma, uncomplicated Category: Medical Qualifiers: Asthma complication type: uncomplicated Asthma persistence: persistent Asthma severity: moderate Qualified Code(s): J45.40 - Moderate persistent asthma, uncomplicated (3) Abnormal diffusion capacity determined by pulmonary function test: Comment: Moderate isolated diffusion impairment Code(s): R94.2 - Abnormal results of pulmonary function studies Category: Medical (4) Pulmonary nodules: Code(s): R91.8 - Other nonspecific abnormal finding of lung field Category: Medical (5) Insomnia: Code(s): G47.00 - Insomnia, unspecified Category: Medical Qualifiers: Insomnia type: primary Qualified Code(s): F51.01 - Primary insomnia (6) Chronic rhinitis: Code(s): J31.0 - Chronic rhinitis Category: Medical Plan Continue Alvesco stopped Spiriva daily MONICO as needed Mucinex OTC Continue APAP every night (typicall only sleep 3-4 hours a night. 80%usage based on her minimal sleep) Lunesta as needed, causing irritability reviewed CTA at [facility], no nodules. No need for additional CT chest F/U 6-12 months Medications: New doxycycline hyclate 100 mg PO BID 20 caps 0RF 10 days Coding Level of Care Code Est Pt Level 4 (58067) Diagnoses ODETTE on CPAP G47.33; Z99.89 Moderate persistent asthma without complication J45.40 Asthma complication type: uncomplicated Asthma persistence: persistent Asthma severity: moderate Abnormal diffusion capacity determined by pulmonary function test R94.2 Pulmonary nodules R91.8 Primary insomnia F51.01 Insomnia type: primary Chronic rhinitis J31.0 Time Spent (min) 17
== END 2024-02-08 13:53 | disposition home or self-care (01) ==
LOC: HO.HPS 13:16
PROVIDERS: PCP Internal Medicine; Visit Provider Hospitalist
DX: G47.33 Obstructive sleep apnea (adult) (pediatric) (principal); Z99.89 Dependence on other enabling machines and devices; J45.40 Moderate persistent asthma, uncomplicated; R94.2 Abnormal results of pulmonary function studies; R91.8 Other nonspecific abnormal finding of lung field; F51.01 Primary insomnia; J31.0 Chronic rhinitis
CPT/HCPCS: 99214

== ENCOUNTER → 2024-02-08 13:15 | Outpatient (BNVA) | payer OTHER, SELFPAY | PROVIDERS: PCP Internal Medicine; Visit Provider Hospitalist | DX: J45.40 Moderate persistent asthma, uncomplicated (principal); J31.0 Chronic rhinitis; G47.33 Obstructive sleep apnea (adult) (pediatric); R94.2 Abnormal results of pulmonary function studies; R91.8 Other nonspecific abnormal finding of lung field; F51.01 Primary insomnia; Z99.89 Dependence on other enabling machines and devices | CPT/HCPCS: 99212 ==

== ENCOUNTER 2024-08-11 13:16 | Outpatient (AMB) | payer OTHER, SELFPAY ==
[2024-08-11 13:18] VITALS: BP 136/82; PULSE 66; O2SAT 98; BMI 24.2
--- NOTE | 2024-08-11 13:18 | A.OFFVIS_ITS ---
Vital Signs 08/11/24 13:18 Height 5 ft 6 in Weight 149 lb 14.629 oz BMI 24.2 BP 136/82 Blood Pressure Location Rt brachial Position Sitting Pulse 66 Pulse Source Pulse Oximeter Pulse Oximetry (%) 98 Oxygen Delivery Method Room Air Intake Visit Reasons: Obstructive sleep apnea Multi Punch Operator Required: No Accompanied by: Self / Same As Patient Allergies morphine Allergy (Severe, Verified 08/11/24 13:22) Heart Palpitations azithromycin Adverse Reaction (Verified 08/11/24 13:22) prolonged QT HPI Comments Details: The patient is a 64-year-old woman known asthma addition to obstructive sleep apnea with severe migraines. Patient also has insomnia. She has been using her CPAP. The CPAP therapy has been very effective beneficial. They do help her migraines and also decrease her cardiovascular risks. If however, is hard for her to tolerate the mask because it irritates her face. We talked about using liners. She will considered doing so. The meantime the Miriam view mask is most comfortable mask for her. She cannot use a nasal mask because she opens her mouth. She also uses a mouth guard for significant grinding of her teeth. The patient will continue using the Miriam view mask at this time. However, her machine does not appear to be as effective anymore. His more than 5 years old. The CPAP pressures done appeared to be as effective for her. At this point I will request a new CPAP machine to be able to provide more autonomic pressure changes more responsive to her obstruction in addition to being able to adequately get information from her machine to adjust her machine accordingly. I will send a new replacement CPAP prescription to [employer], her [employer] company. She continues using her inhalers. She did have an x-ray during the last visit at some point at [facility] which demonstrated increased cardiac size. She is concerned about this. I have reassured her that is likely just with the x-ray appearance is but it does not have to be that her heart is actually big. Will repeat the x- ray at this time. If her x-ray still shows increased cardiac silhouette may be due in echocardiogram will be more helpful. 02/23/2023 the patient is here for a pulmonary follow-up visit. She was recently evaluated [facility] which she was having some substernal chest the ER she did undergo a CTA. We did have the report. Demonstrated some small airways disease due to some mosaic pattern. But otherwise no other acute illness noted. The patient was treated for costochondritis and she was discharged home. Cardiac studies were all normal. She still has some costochondral joint discomfort but much improved. The patient also has been having some increasing coughing primarily because of the which stopping the basement. Will go ahead and maximize her respiratory therapy. She has a hard time tolerating beta agonist therapy. The patient also has been using her CPAP. The CPAP therapy continues to be affecting beneficial. She does not sleep more than 3-4 hours a night so therefore she does use it every night but uses it effective for the amount of sleep that she has. Based on the fact that she only sleeps about 3 for hours a night her use age is closer to 80%. The CPAP therapy continues to be affecting beneficial. 08/03/2023 the patient is here for a pulmonary follow-up visit. Overall the doing well. No further episodes of chest pain which is reassuring. Still anxious at times. She does take the lorazepam at nighttime. She has been d ealing with a lot of stress because of her 's health. In meantime she still struggles with sleep. She still sleeps minimal hours between 3-4 hours a night. After that she wakes up and she stays active. The patient does use her CPAP at nighttime CPAP therapy continues to be affecting beneficial. She does use it more than 90% of the time while she is sleeping. But since her sleep cycles so short it does not meet the criteria that we have on the overall population. She does have another machine. She does swab rooms and she uses her own machine when she sleeps in a different room. When she does that the machine is not recorded to the clot is recording to the card. She did bring that in and confirms the fact that she has been using the machine every night to sleep with. Respiratory pinto she is doing okay. Sleep she sometimes still uses the Lunesta as needed. Although she does feel irritable after using it she tries to avoid. We did again looked a report from her CTA. No additional imaging warranted. 02/08/2024 the patient is here for a pulmonary follow-up visit. She is doing well from a respiratory status. She continues uses CPAP every night. More than 4 hours a night when she can. Although she does not sleep a lot. Now that she is dealing with her 's sickly cancer diagnosis is very hard for her to get adequate sleep. The patient continues use respiratory medications with good effect. She did develop a cough. She was exposed to sick contact when grandson came over he was then diagnosed with pneumonia. I gave her a prescription of doxycycline that she can start if her cough gets worse. Otherwise the patient follow-up in 6 months. 08/11/2024 the patient is here for pulmonary follow-up visit. The patient overall has been doing very well. She has been taking care of her sick who has required a lot of effort and energy but finally he is feeling better. Unfortunately she did have a fall and she fractured her wrist requiring surgery. She is recovering well from that. In the meantime she is sleeping better at nighttime. She is using CPAP in the CPAP therapy continues to be affecting beneficial. Her AHI is well below 1 and her pressures are adequate. Her mask is also comfortable. From a respiratory status she does have the Alvesco that she uses on a regular basis with good adherence and has not required her rescue inhaler. She has not required any prednisone which is reassuring. The patient does not take any vaccines so we will defer any discussion about vaccines at this time. The patient will follow-up in a year's time if she has any issues prior to that she will call for an earlier assessment. [facility] Medical History (Updated 12/29/23 @ 08:35 by Nathan Pantoja MD) Dysphagia Head and neck cancer Insomnia Dyspnea Abnormal diffusion capacity determined by pulmonary function test Fatigue Chronic rhinitis ODETTE on CPAP Asthma Family History Father No problems noted. Social History Patient Tobacco Use Status: Former Tobacco user Tobacco use type: Cigarette Years Smoked: 15 years Review of Systems Const Denies chills, Denies fatigue, Denies fever(s), Denies weight gain and Denies weight loss ENT Denies dizziness, Denies lip swelling and Denies tongue swelling Card Denies chest pain, Denies leg edema, Denies lightheadedness, Denies palpitations, Denies dyspnea on exertion, Denies orthopnea and Denies other Resp Denies cough and Denies dyspnea on exertion GI Denies hematochezia and Denies change in stool character Musc Reports as per HPI, Denies abnormal gait, Reports myalgias, Reports arthralgias and Denies tingling Neuro Denies abnormal gait, Denies dizziness and Denies tingling Psych Denies no additional complaints and Reports difficulty concentrating Endo Denies fatigue and Denies palpitations Vic/Lymph Denies easy bleeding and Denies lymphadenopathy Aller/Immun Denies lip swelling and Denies tongue swelling Physical Exam Vital Signs: Last Vital Signs Pulse 66 08/11/24 13:18 BP 136/82 08/11/24 13:18 Pulse Ox 98 08/11/24 13:18 Oxygen Delivery Method Room Air 08/11/24 13:18 BMI result Body Mass Index 24.2 Const General: alert Eyes Pupils: Equal, round and reactive pupils present Neck Neck: Yes normal visual inspection, Yes full ROM and Yes no lymphadenopathy Chest Chest palpation & inspection: normal inspection of the chest and tenderness sternum and costal cartilage Resp Auscultation: no crackles and diminished lung sounds Cardio Rate: regular rate Rhythm: regular rhythm Heart sounds: S1 normal heart sound present and S2 normal heart sound present GI Palpation (GI): Soft to palpation and nontender Auscultation: normal bowel sounds General: Yes no CVA tenderness Back/Spine/Pelvis Back: no CVA tenderness Skin General skin exam: rashes and/or lesions noted Neuro Cranial nerves: Yes Equal, round and reactive pupils present Assessment & Plan Assessment & Plan (1) ODETTE on CPAP: Code(s): G47.33 - Obstructive sleep apnea (adult) (pediatric); Z99.89 - Dependence on other enabling machines and devices Category: Medical (2) Asthma: Code(s): J45.909 - Unspecified asthma, uncomplicated Category: Medical Qualifiers: Asthma complication type: uncomplicated Asthma persistence: persistent Asthma severity: moderate Qualified Code(s): J45.40 - Moderate persistent asthma, uncomplicated (3) Abnormal diffusion capacity determined by pulmonary function test: Comment: Moderate isolated diffusion impairment Code(s): R94.2 - Abnormal results of pulmonary function studies Category: Medical (4) Pulmonary nodules: Code(s): R91.8 - Other nonspecific abnormal finding of lung field Category: Medical (5) Insomnia: Code(s): G47.00 - Insomnia, unspecified Category: Medical Qualifiers: Insomnia type: primary Qualified Code(s): F51.01 - Primary insomnia (6) Chronic rhinitis: Code(s): J31.0 - Chronic rhinitis Category: Medical Plan Continue Alvesco stopped Spiriva daily MONICO as needed Mucinex OTC Continue APAP every night (typicall only sleep 3-4 hours a night. 80%usage based on her minimal sleep) Lunesta as needed, causing irritability reviewed CTA at [facility], no nodules. No need for additional CT chest F/U 12 months Coding Level of Care Code Est Pt Level 4 (25553) Diagnoses ODETTE on CPAP G47.33; Z99.89 Moderate persistent asthma without complication J45.40 Asthma complication type: uncomplicated Asthma persistence: persistent Asthma severity: moderate Abnormal diffusion capacity determined by pulmonary function test R94.2 Pulmonary nodules R91.8 Primary insomnia F51.01 Insomnia type: primary Chronic rhinitis J31.0 Time Spent (min) 16
--- OUTSIDE RECORDS SUMMARY | 2024-08-11 13:19 | XMS_ITS | Continuity of Care Document ---
Author Organization [facility] [address] [facility] [address] [place] [address] Phone [phone] Social History Type Date Description Comments Sex Unknown Medications Active Medications SIG Qnty Indications Ordering Provider Date [id number] Tablets take 1 tablet by mouth 5 week Dennis Elliott M.D. 01/07/2022 Results Test Acquired Date Facility Test Result H/L Range N ote TSH 03/20/2024 [facility] TSH 0.504 uIU/mL 0.450-4.500 TSH 01/25/2024 [facility] TSH 4.900 uIU/mL High 0.450-4.500 TSH 09/06/2023 [facility] TSH 1.150 uIU/mL 0.450-4.500 1 TSH 05/04/2023 [facility] Re[facility] TSH 2.06 uIU/mL (0.4-4.2) TSH 12/03/2022 [facility] Referen [facility] TSH 1.22 uIU/mL (0.4-4.2) TSH 09/30/2022 [facility] Referen [facility] TSH 2.74 uIU/mL (0.4-4.2) TSH 07/28/2022 [facility] Referen [facility] Lab TSH 1.82 uIU/mL (0.4-4.2) TSH 04/14/2022 [facility] Referen [facility] Lab TSH 3.74 uIU/mL (0.4-4.2) TSH 03/24/2022 [facility] Referen [facility] Lab TSH 6.53 uIU/mL High (0.4-4.2) TSH 02/18/2022 [facility] Referen [facility] Lab TSH <pending> TSH 02/18/2022 [facility] Referen [facility] TSH <pending> TSH 12/29/2021 [facility] ce Lab TSH 0.30 uIU/mL Low (0.4-4.2) 1 A courtesy copy of t his report has been sent to the patient Medical Devices Description No Information Available Encounters Description No Information Available Assessments Date Code Description Provider 05/04/2023 E03.9 Hypothyroidism, unspecified Dennis Elliott M.D. 03/24/2022 E03.9 Hypothyroidism, unspecified Dennis Elliott M.D. 02/18/2022 E03.9 Hypothyroidism, unspecified Dennis Elliott M.D. 12/29/2021 E03.9 Hypothyroidism, unspecified Dennis Elliott M.D. Plan of Treatment No Information Available Functional Status Description No Information Available Mental Status Description No Information Available Referrals Description No Information Available
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
--- OUTSIDE RECORDS SUMMARY | 2024-08-11 13:20 | XMS_ITS | Encounter Summary ---
Author Organization [facility] Address [address] [place] [address] Care Team Providers Care Market Investigator Name Role Phone Meliton Cho Primary Care Provider + Reason for Visit * Reason Onset Date Comments Aspirin 07/12/2024 Encounter Details Date Type Department Care Team (Late st Contact Info) Description 07/12/2024 Telephone [facility] - [facility] [address] [facility] [address] [place] [phone] Bautista Mei MD [address] [place] [address] Aspirin Social History Tobacco Use Types Packs/Day Years [...] Orientation Straight 06/13/2024 5: 35 PM EDT documented as of this encounter Functional Status * Are you deaf or do you have serious difficulty hearing? Answer Date of Assessment Author No 06/13/2024 4:40 PM EDT [place] RN * Are you blind or do you have serious difficulty seeing, even when wearing glasses? Answer Date of Assessment Author No 06/13/2024 4:40 PM EDT Hatfield RN * Do you have serious difficulty walking or climbing stairs? Answer Date of Assessment Author No 06/13/2024 4:40 PM EDT Hatfield RN * Do you have serious difficulty dressing or bathing? Answer Date of Assessment Author No 06/13/2024 4:40 PM EDT Hatfield RN * Because of a physical, mental, or emotional condition, do you have serious difficulty doing errandsalone such as visiting the doctor? Answer Date of Assessment Author No 06/13/2024 4:40 PM EDT Hat[place] RN documented as of this encounter Mental Status * Because of a physical, mental, or emotional condition, do you have serious difficulty concentrating, remembering, or making decisions? (5 years old or older) Answer Entry Date Author No 06/13/2024 4:40 PM EDT Hat[place] RN documented in this encounter Progress Notes * Susan James RN - 07/13/2024 4:09 PM EDT Delmis informed of the below message and she voiced understanding. * Alisha Mustafa NP - 07/13/2024 4:04 PM EDT The physicians at [facility] will have all of the patient's medications on file prior to prescribing anything for her that is possibly contraindicated. If they feel as though this is necessary from an orthopedic standpoint postprocedure then she should follow their recommendations. From a cardiac standpoint there is no contraindication for her to temporarily be on a blood thinner medication. * Susan James RN - 07/13/2024 3:28 PM EDT Delmis called back. [facility] in [place], [place] advised her she doesn't need to hold Aspirin for her upcoming surgery. Patient was told by [facility] she will be prescribed a blood thinner to take a few days after surgery. Patient asked me if this is okay and stated they did not give her a name for the blood thinner they would prescribe. I advised her I would call [facility] to clarify this information. After remaining on hold with [employer] for 15 minutes, I terminated the call. Patient questioned if it's safe for her to take a blood thinner a few days after surgery? * Susan James RN - 07/12/2024 2:57 PM EDT I spoke to Delmis. She broke her left arm on 07/14/24. On 07/19/24, she will have surgery to place a plate and screw. Patient stated anesthesiology called her, went over her medications with her, and advised her to contact Cardiology to see if she should continue Aspirin or stop it due to her cardiac condition. Dr. Horton from [place], [place] is performing the surgery. I advised her to contact [facility] to see if her surgeon is recommending she hold Aspirin and if so, how long. She will call back once this information is obtained. * Susan James RN - 07/12/2024 2:25 PM EDT I left a message on Delmis's machine for call back. * Kelsie Marie - 07/12/2024 1:17 PM EDT Patient called regarding a surgery she has for her arm on 07/19/24 and would like to confirm if she is to hold her aspirin prior. Please return her call at [phone] to discuss. documented in this encounter Plan of Treatment Upcoming Encounters Date Type Department Care Team ([facility] st Contact Info) Description 09/26/2024 2:45 PM EDT Office Visit Orthopedic Surgery [facility] [address] [phone] Mj Jerez, DPM [address] [id number] documented as of this encounter Visit Diagnoses Not on filedocumented in this encounter Additional Health Concerns Infection Onset Date Last Indicated Resolved Time Parainfluenza Virus 02/21/2024 02/21/2024 documented as of this encounter Care Teams Market Investigator Relationship Specialty Start Date End Date Meliton Cho PA [address] [place] [phone] PCP - General 03/10/23 documented as of this encounter
--- OUTSIDE RECORDS SUMMARY | 2024-08-11 13:20 | XMS_ITS | Data Portability ---
Author Organization [place] - [facility], [facility] Address [address] [place] [address] Care Team Providers Care Information Clerk Brokerage Name Role Phone MICK DOWNING Referring Provider [phone] CHARLIE VILLEGAS Primary Care Provider Assessment Encounter Date Assessment Date Assessment LastModified by Organization Details LastModified Time 07/10/2024 07/10/2024 chief complaint: Left distal ulna fracture HPI: 63-year-old female who had fallen and hit her left forearm on a ridge. She was feeding animals at the time of injury.. She had pain and swelling over the forearm. She is left-handed. She went to [facility]. They placed a splint. She has used Tylenol and Ultram for pain. Does not take much to control pain. She denies any other problems other than her right thumb which has sometimes been a problem in the past. 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 She has been treated with a cast. She is not doing well with the cast. She has lost her reduction. She is back and would like to have her surgery completed. She also would like an evaluation formally on her right thumb. 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 Normocephalic/a traumatic. Oropharynx is clear. Chest is clear. Regular rate and rhythm. Abdomen soft nontender. Se has a short arm cast on her left forearm. She has tenderness over the distal ulna. Alignment is shifted. She has some stiffness and swelling in her fingers. She has normal pulses and sensation. She has tenderness palpation over the fracture site. X-ray: X-rays were ordered obtained and reviewed today at the [facility]. 3 views of the left wrist show the previously nondisplaced distal ulna fracture has displaced and has about 10 degrees of angulation and translation and does not show signs of healing. Assessment: Left distal ulna fracture, displaced Plan: I reviewed the options with the patient again. She has true displacement of the ulna. She would like to have this fixed. I can use a 2.7 or 3.5 locking plate on the ulna. She understands this we will hold things stable and she should heal. She understands that this will take 2 or 3 months to heal after being fixed. She understands the risk of infection and painful hardware. She was placed in a new short arm cast today. She will also complained of right thumb CMC joint pain. She will be referred to one of our hand surgeons to discuss this further. Surgery is scheduled on July 19, 2024. She will sign consents at the hospital. This will be an outpatient procedure. All questions were answered. Preop instructions were given. Not available 07/10/2024 17:16:59 Plan of Treatment Reminders Order Date Submit Date Provider Last Modified By Organization Details Last Modified Time Details Appointments RECHEC K 15 2024 01:45P M Rory Horton MD Not available Not available Not available Lab None record ed. Referral None record ed. Procedures None record ed. Surgeries None record ed. Imaging XR, finger (s), 2 or more view - rm 6 2v tmj right 2024 025 [email or web address] [facility], [address], [place], [address], 07/18/2024 17:14:19 XR, wrist, 3 or more view - 307 3V LEFT WRIST IN CAST 2024 025 [email or web address] [facility], [address], [place], [address], 07/25/2024 08:49:49 XR, wrist, 3 or more view - rm 316 cast off then xr lt wrist 3v 2024 025 [facility], [address], [place], [address], 06/28/2024 14:42:43 Medication Orders hydroc odone 5 mg-venessa tamino phen 300 mg tablet 2024 025 [id number], [address] [place], [id number], 07/10/2024 15:30:51 Patient TargetsNo targets recorded. Patient Instructions Encounter Date Encounter Id Patient Instructions Last Modified By Organization Details Last Modified Time 06/28/[id number] cast removal* - rm 316 cast off then xr sbviri Not available 06/28/2024 14:42:43 07/10/[id number] application of cast, short arm cast* - 307 LUE SAC - REMOVE CURRENT CAST Not available 07/10/2024 15:12:42 Reason for Referral None Reported. Results Created Date Observation Date Name Description Value Unit Range Abnormal Flag Note LastModifiedBy Organization Detail LastModifiedTime 06/22/1906/21/2024 XR, wrist , 3 or more view [email or web address] ?Encry pted=s hAaTro YD8dLq bEUv6g %2BXZw aYqtaq 0bqfl% 2Fg9IQ a4ajBk vP9nXo QUaueC m3YtLR FvZlgJ JJ8Cambridge HZtai3 5m2587 AC0KqY nmAVau mKiQtr MwF INTERFACE [facility] Office [address], [place], [address], 06/21/2024 16:21:03 06/22/19 25 06/21/2024 XR, wrist , 3 or more view [email or web address] ?Encry pted=s hAaTro YD8dLq bEUv6g %2BXZw aYqtaq 0bqfl% 2Fg9IQ a4ajBk vP9nXo QUaueC m3YtLR FvZlgJ JJ8mAn HZtai3 0m2291 AC0KqY nmAVau mKiQtr MwF INTERFACE [facility] Office [address] [facility] [address], [place], [address], 06/21/2024 16:21:05 06/29/19 25 06/28/2024 XR, wrist , 3 or more view [email or web address] ?Encry pted=s hAaTro YD8dLq bEUv6g %2BXZw aYqtaq 0bqfl% 2Fg9IQ a4ajBk vP9nXo QUaueC m3YtLR FvZl [facility] HZtai3 2b0281 AC0KqY nqCUqC kKiQtr MwF INTERFACE [facility] Office [address] [facility] [address], [place], [address], 06/28/2024 14:33:42 06/29/19 25 06/28/2024 XR, wrist , 3 or more view [email or web address] ?Encry pted=s hAaTro YD8dLq bEUv6g %2BXZw aYqtaq 0bqfl% 2Fg9IQ a4ajBk vP9nXo QUaueC m3YtLR FvZlgJ JJ8mAn HZtai3 8e1798 AC0KqY nqCUqC kKiQtr MwF INTERFACE [facility] Office [address] [address], [place], [address], 06/28/2024 14:33:44 07/11/19 25 07/10/2024 XR, wrist , 3 or more view [email or web address] ?Encry pted=s hAaTro YD8dLq bEUv6g %2BXZw aYqtaq 0bqfl% 2Fg9IQ a4ajBk vP9nXo QUaueC m3YtLR FvZlgJ JJ8mAn HZtai3 8e0013 AC0KqY 36FVaC uKiQtr MwF INTERFACE [facility] [address], [place], [address], 07/10/2024 12:17:08 07/18/19 25 07/17/2024 XR, finge r(s), 2 or more view [email or web address] ?Encry pted=s hAaTro YD8dLq bEUv6g %2BXZw aYqtaq 0bqfl% 2Fg9IQ a4ajBk vP9nXo QUaueC m3YtLR FvZlgJ JJ8mAn HZtai3 6k7489 AC0KqY 3uAUKS nKiQtr MwF INTERFACE [facility] [address] [facility] [address], [place], [address], 07/17/2024 13:53:09 07/18/19 25 07/17/2024 XR, finge r(s), 2 or more view [email or web address] ?Encry pted=s hAaTro YD8dLq bEUv6g %2BXZw aYqtaq 0bqfl% 2Fg9IQ a4ajBk vP9nXo QUaueC m3YtLR FvZlgJ JJ8mAn HZtai3 0v6290 AC0KqY 3uAUKS nKiQtr MwF INTERFACE [facility] [address] [facility] [facility] [address], [place], [address], 07/17/2024 13:53:11 08/03/19 25 08/02/2024 XR, wrist , 3 or more view [email or web address] ?Encry pted=s hAaTro YD8dLq bEUv6g %2BXZw aYqtaq 0bqfl% 2Fg9IQ a4ajBk vP9nXo QUaueC m3YtLR FvZlgJ JJ8mAn HZtai3 0t6782 AC0Kla nmFV6S vKiQtr MwF INTERFACE [facility] [address], [place], [address], 08/02/2024 15:50:11 08/03/19 25 08/02/2024 XR, wrist , 3 or more view [email or web address] ?Encry pted=s hAaTro YD8dLq bEUv6g %2BXZw aYqtaq 0bqfl% 2Fg9IQ a4ajBk vP9nXo QUaueC m3YtLR FvZlgJ JJ8mAn HZtai3 3v0180 AC0Kla nmFV6S vKiQtr MwF INTERFACE [facility] [address], [place], [address], 08/02/2024 15:50:12 Result Notes None recorded. Problems Name Problem SNOMED Code Status Onset Date Resolution Date Notes Provider Name and Address Organization Details Recorded Time Closed fracture of left forearm 958915128799783 05 Active 2024 ALBINO PANDA [facility] 5 14:25:13 Closed fracture of shaft of ulna 06194123 Active 2024 Nessa gaitan PA-C [address], [place], [address], [facility] 5 15:01:21 Pain of left wrist 697324959246066 Active 2024 Rory Horton MD [address], [place], [address], [facility] 5 17:09:43 Problem Notes None recorded. Procedures Surgical History Date Name Laterality Status Provider Name and Address Organization Details Recorded Time 07/18/19 25 JZCMC Inj completed Cesar Person PA-C [address], [place], [address], [facility] 07/17/2024 14:07:53 07/18/19 25 Medial Epicondylitis Celestone 1cc Injection, L/R completed Cesar Person PA-C [address], [place], [address], [place] [facility] 07/17/2024 14:08:10 07/12/19 25 Cast_Short Arm/Ulnar Gutter/Radial Gutter_11+ completed LEXIS MAHAJAN [facility] 07/11/2024 16:43:54 07/12/19 25 Cast Removal completed LEXIS MAHAJAN [facility] 07/11/2024 16:42:33 12/02/19 24 Sports Knee 4&1 completed Penny Gerard PA-C [address], [place], [address], [facility] 12/02/2023 17:27:11 Imaging Results Imaging Date Name Status LastModified by Organiz ation Details LastModified Time 06/21/2024 XR, wrist, 3 or more view completed INTERFACE [facility] [address], [place], [address], 06/21/2024 16:21:03 06/21/2024 XR, wrist, 3 or more view completed INTERFACE [facility] [address], [place], [address], 06/21/2024 16:21:05 06/28/2024 XR, wrist, 3 or more view completed INTERFACE [facility] [address], [place], [address], 06/28/2024 14:33:42 06/28/2024 XR, wrist, 3 or more view completed INTERFACE [facility] [address], [place], [address], 06/28/2024 14:33:44 07/10/2024 XR, wrist, 3 or more view completed INTERFACE [facility] [address], [place], [address], 07/10/2024 12:17:08 07/17/2024 XR, finger(s), 2 or more view completed INTERFACE [facility] [address], [place], [address], 07/17/2024 13:53:09 07/17/2024 XR, finger(s), 2 or more view completed INTERFACE [facility] [address], [place], [address], 07/17/2024 13:53:11 08/02/2024 XR, wrist, 3 or more view completed INTERFACE [facility] [address], [place], [address], 08/02/2024 15:50:11 08/02/2024 XR, wrist, 3 or more view completed INTERFACE [facility] [address], [place], [address], 08/02/2024 15:50:12 Procedure Notes None recorded. Medical Equipment None Reported. Allergies Allergen ID Allergen Name Allergen Category Reaction Reaction Severity Criticality Documentation Date Start Date Code Code System Note Provider Name and Address Organization Details Recorded Time 33356 morphine sulfate medicatio n Not available Not available Not available 06/07/20232014 66668 RxNorm Not Available [facility] Medications Name Sig Start Date Stop Date Status Note LastModified by Organization Details LastModified Time buspirone 5 mg tablet TAKE 1 TABLET BY MOUTH DAILY 06/19 completed Not Available Not Available Not Available doxycycline hyclate 100 mg capsule TAKE 1 CAPSULE BY MOUTH TWICE DAILY FOR 10 DAYS 06/19 completed Not Available Not Available Not Available ammonium lactate 12 % lotion APPLY TOPICALLY IF NEEDED FOR DRY SKIN 06/19 completed Not Available Not Available Not Available cetirizine 10 mg tablet TAKE 2 TABLETS BY MOUTH DAILY 06/19 completed Not Available Not Available Not Available Maxalt-DIRECTOR BUSINESS INTELLIGENCE 10 mg disintegrat ing tablet DISSOLVE 1 TABLET ON THE TONGUE DAILY NEEDED FOR MIGRAINE HEADACHE. MAY REPEAT IN 2 HOURS NEEDED 06/19 completed Not Available Not Available Not Available hydrocodone 5 mg-acetamin ophen 325 mg tablet TAKE 1 TABLET BY MOUTH EVERY 6 HOURS FOR 7 DAYS NEEDED FOR SEVERE PAIN 07/10 completed Not Available Not Available Not Available Synthroid 150 mcg tablet TAKE 1 TABLET BY MOUTH DAILY active Not Available Not Available No t Available fluconazole 200 mg tablet TAKE 1 TABLET BY MOUTH ONCE A WEEK FOR 3 WEEKS 06/19 completed Not Available Not Available Not Available simvastatin 10 mg tablet TAKE 1 TABLET BY MOUTH AT BEDTIME active Not Available Not Available No t Available peg-electro lyte solution 420 gram oral solution FOLLOW INSTRUCTI ONS PROVIDED BY THE OFFICE 06/19 completed Not Available Not Available Not Available doxycycline monohydrate 100 mg tablet TAKE 1 TABLET BY MOUTH TWICE DAILY FOR 14 DAYS 06/19 completed Not Available Not Available Not Available tramadol 50 mg tablet 2024 active Not Available Not Available Not Avai lable triamcinolo ne acetonide 0.1 % topical cream 06/19 completed Not Available Not Available Not Available oxycodone-a cetaminophe n 5 mg-325 mg tablet TAKE 1 TABLET BY MOUTH EVERY 4 HOURS NEEDED FOR PAIN 06/19 completed Not Available Not Available Not Available lorazepam 0.5 mg tablet TAKE 1 TABLET BY MOUTH TWICE DAILY NEEDED FOR ANXIETY 06/19 completed Not Available Not Available Not Available methocarbam ol 750 mg tablet TAKE 1 TABLET BY MOUTH EVERY 6 HOURS NEEDED FOR ANALGESIA 06/19 completed Not Available Not Available Not Available cephalexin 500 mg capsule TAKE 1 CAPSULE BY MOUTH THREE TIMES DAILY FOR 10 DAYS 06/19 completed Not Available Not Available Not Available tacrolimus 0.1 % topical ointment 06/19 completed Not Available Not Available Not Available betamethaso ne dipropionat e 0.05 % topical cream 06/19 completed Not Available Not Available Not Available codeine 10 mg-guaifene sin 100 mg/5 mL oral liquid TAKE 10 MLS BY MOUTH EVERY 6 HOURS NEEDED FOR COUGH 06/19 completed Not Available Not Available Not Available levalbutero l 1.25 mg/3 mL solution for nebulizatio n USE A VIAL VIA NEBULIZER TWICE DAILY 06/19 completed Not Available Not Available Not Available propranolol ER 120 mg capsule,24 hr,extended release TAKE 1 CAPSULE BY MOUTH DAILY 06/19 completed Not Available Not Available Not Available methylpredn isolone 4 mg tablets in a dose pack USE DIRECTED ON PACKAGE FOR 6 DAYS 06/19 completed Not Available Not Available Not Available SSD 1 % topical cream APPLY TOPICALLY TO NAIL-BEDT DILIA DAILY 06/19 completed Not Available Not Available Not Available atenolol 50 mg tablet TAKE 1 TABLET BY MOUTH TWICE DAILY active Not Available Not Available No t Available naproxen 500 mg tablet TAKE 1 TABLET BY MOUTH TWICE DAILY NEEDED FOR ANALGESIA 06/19 completed Not Available Not Available Not Available amoxicillin 875 mg-potassiu m clavulanate 125 mg tablet TAKE 1 TABLET BY MOUTH TWICE DAILY FOR 10 DAYS 06/19 completed Not Available Not Available Not Available oxycodone 5 mg tablet TAKE 1 TABLET BY MOUTH EVERY 6 HOURS NEEDED FOR PAIN 06/19 completed Not Available Not Available Not Available eszopiclone 3 mg tablet TAKE 1 TABLET BY MOUTH AT BEDTIME 06/19 completed Not Available Not Available Not Available aspirin active Not Available Not Avail able Not Available hydrocodone 5 mg-acetamin ophen 300 mg tablet TAKE 1 TABLET BY MOUTH EVERY 6 HOURS FOR 7 DAYS active Not Available Not Available No t Available Alvesco 80 mcg/actuati on aerosol inhaler INHALE 1 PUFF BY MOUTH TWICE DAILY 06/19 completed Not Available Not Available Not Available lidocaine 5 % topical ointment APPLY TOPICALLY TO THE AFFECTED AREA FOUR TIMES DAILY NEEDED FOR PAIN 06/19 completed Not Available Not Available Not Available Spiriva Respimat 2.5 mcg/actuati on solution for inhalation INHALE 2 PUFFS BY MOUTH DAILY 06/19 completed Not Available Not Available Not Available Readi-Cat 2 2 % (w/v) oral suspension 06/19 completed Not Available Not Available Not Available BinaxNOW COVID-19 Ag Self Test kit TEST DIRECTED TODAY 06/19 completed Not Available Not Available Not Available Vitals Date Recorded Body height Body mass index (BMI) Body weight Provider Name and Address Organization Details Last Updated DateTime 07/10/2024 165.1 cm 24.1 kg/m2 00247.89 g ALBINO PANDA [place] - [facility] 07/10/2024 12:14:44 Date Recorded Body height Body mass index (BMI) Body weight Provider Name and Address Organization Details Last Updated DateTime 07/17/2024 165.1 cm 24.1 kg/m2 64488.89 g MILEY GUERRERONANDEZ [facility] 07/17/2024 13:48:07 Date Recorded Body height Body mass index (BMI) Body weight Provider Name and Address Organization Details Last Updated DateTime 08/02/2024 165.1 cm 24.1 kg/m2 57566.89 g Katharinemandie Bolanos [facility] 08/02/2024 16:10:40 Social History None recorded. Functional Status None recorded. Mental Status None recorded. Family History Nothing Reported. Medical History Condition Response Anxiety/Depression Y Thyroid Problems Y Hypertension Y Cholesterol Y Gynecological HistoryNo gynecological history recorded. Obstetrics History GPAL:G 0 P 0 0 0 0 Past Encounters Encounter ID Performer Location Encounter Start Date Encounter Closed Date Diagnosis/Indication Diagnosis SNOMED-CT Code Diagnosis ICD10 Code Diagnosis Note [id number] [facility] [address] [place] [address] 11/04/2023 14:34:36 11/29/2023 08:14:37 Bilateral osteoarthritis of knees 1158536478 94745 M17.0 Osteoarthr itis of bilateral hip joints 0354957444 37153 M16.0 Trochanter ic bursitis of right hip 0366867052 52883 M70.61 Trochanter ic bursitis of left hip 6127364491 66811 M70.62 [id number] [facility] [address] [place] [address] 12/02/2023 14:38:11 12/27/2023 09:50:08 Pain of right knee joint 3598317769 65485 M25.561 Osteoarthr itis of right knee joint 0826458865 62116 M17.11 [id number] [facility] [address] [place] [address] 01/03/2024 14:54:59 01/26/2024 11:18:50 Osteoarthritis of right knee joint 8394580028 12213 M17.11 [id number] MD GAEL [facility] [address] [place] [address] 06/19/2024 13:50:08 06/30/2024 11:09:14 Closed fracture of left forearm 7799467127 2282852 S52.92XA [id number] Hallie Narvaez PA-C [facility] [address] [place] [address] 06/20/2024 21:47:02 06/20/2024 21:51:09 Closed fracture of left forearm 6614823664 6861754 S52.92XA [id number] Nessa ramirez PA-C [facility] [address] [place] [address] 06/21/2024 15:46:39 07/10/2024 14:40:23 Pain of left wrist 2008505549 92613 M25.532 Closed fra cture of shaft of ulna 45461868 S52.222D [id number] MD GAEL [facility] [address] [place] [address] 06/22/2024 14:52:45 06/22/2024 15:19:12 Pain of left wrist 7898620032 70421 M25.270 [id number] Nessa rmairez PA-C [facility] [address] [place] [address] 06/28/2024 14:00:46 07/18/2024 10:46:46 Pain of left wrist 3147354339 12668 M25.532 Closed fra cture of shaft of ulna 97405169 S52.232D [id number] MD GAEL [facility] [address] [place] [address] 07/10/2024 12:00:08 07/25/2024 08:49:49 Closed fracture of left forearm 9256656260 7582883 S52.92XA Pain of left wrist 01784 10368 65527 M25.028 [id number] MD GAEL [facility] [address] [place] [address] 07/11/2024 16:19:10 07/11/2024 16:44:37 Closed fracture of left forearm 9026168444 5834391 S52.92XA [id number] [facility] [address] [place] [address] 07/17/2024 13:42:48 08/04/2024 12:04:57 Pain in right hand 4631222886 75028 M79.641 Health Concerns Section Related Observation LastModified by Organization Detai ls LastModified Time None Recorded Concern Status LastModified by Organization Details LastModified Time None Recorded Advance Directives Directive None Recorded Payers Encounter Date Sequence Insurance Name Policy Number Policy Tai Covered Member ID Tai Member ID Guarantor Name 06/28/2024 1 [facility] (MEDICAID HMO) [id number] Delmis A A Cien[place]wa [id number] Delmis A Cien[place]wa 07/10/[address] [place] [address] ([facility] [id number] Delmis A A Cien[place]wa [id number] Delmis A Cienciwa 07/11/2024 1 [facility] ([facility]) [id number] Delmis A A [place] [id number] Delmis A Cien[place]wa 07/17/2024 1 [facility] ([facility]) [id number] Delmis A A [place] [id number] Delmis A Cienciwa Notes Date Note Type Note Provider Name and Address Organization Details Recorded Time text/html I am seeing the patient today under the supervision of Dr. Persaud Who was available but who did not see the patient.HPI: 9-year-old female presents for recheck today regarding isolated left ulnar shaft fracture. Her original injury was June 13. She was seen by Dr. Horton 06/19. He recommended nonsurgical treatment and she was placed in a short-arm cast. She will return to see me a couple days later with increased pain and it was found that her fracture had displaced slightly since original radiographs. This is still amenable to nonsurgical treatment and she was put in a new cast with a mold to limited forearm rotation. She complains that the new cast loosened and was sliding down her arm. He complains of continued pain at the fracture site. Denies interval trauma. Denies paresthesias. She is taking Tylenol and I given as needed for pain.Past family, medical, social history and review of systems have been reviewed and updated on the medical history sheet saved to the patient's chart. Review of systems is negative except as noted above and/or on the medical history sheet.Examination: The patient is well appearing and in no apparent distress. Alert and oriented x3. Left upper extremity exam demonstrates swelling and ecchymosis over the left distal ulna with tenderness to palpation. No deformity. Forearm rotation deferred due to pain. Wrist range of motion deferred due to pain. Full digital range of motion. Neurovascularly intact. She has full flexion-extension of her elbow. Peripheral vascular, lymphatic examination, skin, neurological, coordination, sensation are within normal limits unless otherwise noted above.X-rays ordered, obtained and reviewed at [facility] 3 views of the left wrist demonstrate mildly displaced left distal third ulnar shaft fracture. It is a slightly oblique fracture. Fracture alignment is stable compared to previous radiographs 06/21/2024. There is no callus. There is mild apex dorsal angulation noted.Impression: 63-year-old female with minimally displaced left distal third ulnar shaft fracture 06/13/2024Plan: Findings discussed with the patient. We discussed that despite the mild displacement of her fracture is still amenable to nonsurgical treatment and I recommmended a new short arm cast with a mold to restrict forearm rotation. She will keep her routine scheduled follow-up 07/19/2024 for cast removal, repeat exam, new x-rays 2 views Left forearm. Questions answered.[facility] speech recognition transaction advisory services manager software was used to create portions of this document. An attempt at proofreading has been made to minimize errors. Please call for corrections. Nessa Rodarte PA-C [address] [place] [address] [address], [place], [address], [facility] - [facility] 06/28/2024 15:01:45 5 text/html I am seeing the patient today under the supervision of dr Babb who was available but who did not see the patient. DX: right Basilar joint osteoarthritisMedial epicondylitis right elbow HPI: 63-year-old female complaining of right thumb pain since her fall. Has increasing pain with grasp and carbone pinch for the past several months. Anti-inflammatories ineffective. No splinting. No falls or trauma. She does complain of medial right elbow pain. She is in a left short arm cast. She has a distal ulna fracture that she is scheduled to have surgery on Wednesday by Dr. Horton Past family, medical, social history and review of systems has been reviewed, updated and is located in the patient? s chart. Examination: Alert and oriented ? ? 3 . No acute distress. Nonantalgic gait. right Thumb reveals no soft tissue swelling erythema ecchymosis. Tender over the TM joint. Positive first [facility] joint grind test. No tenderness of the first dorsal compartment. Negative Tinel sign over the distal radial sensory nerve. Neurovascular intact. No tenderness over the A1 keya region. right Elbow reveals no soft tissue swelling. The patient is tender over the medial epicondyle. medial elbow pain with wrist flexion, resisted wrist flexion and resisted forearm pronation. X-rays ordered, obtained and reviewed at [facility] 3 views right TM of reveal degenerative changes of the TN joint Impression/Plan:The findings and situation discussed with the patient. Recommended a cortisone injection to the TM joint. Under aseptic technique, 40 mg Kenalog 40 and 1 cc of 0.5% marcaine were injected into the right TM joint. Under aseptic technique 6 mg Celestone 1 cc of 0.5% Marcaine was injected into the medial epicondyle right elbow. She was provided with exercises. She was given a thumb spica splint.The patient will follow up in 6 weeks if no improvement. Provided with the basilar joint handout. Cesar Person PA-C [address], [place], [address], [facility] - [facility] 07/17/2024 14:08:40 OBGyn Episode No OBEpisode recorded.
== END 2024-08-11 13:49 | disposition home or self-care (01) ==
LOC: HO.HPS 13:17
PROVIDERS: PCP Internal Medicine; Visit Provider Hospitalist
DX: G47.33 Obstructive sleep apnea (adult) (pediatric) (principal); Z99.89 Dependence on other enabling machines and devices; J45.40 Moderate persistent asthma, uncomplicated; R94.2 Abnormal results of pulmonary function studies; R91.8 Other nonspecific abnormal finding of lung field; F51.01 Primary insomnia; J31.0 Chronic rhinitis
CPT/HCPCS: 99214

== ENCOUNTER → 2024-08-11 13:16 | Outpatient (BNVA) | payer OTHER, SELFPAY | PROVIDERS: PCP Internal Medicine; Visit Provider Hospitalist | DX: J31.0 Chronic rhinitis (principal); J45.40 Moderate persistent asthma, uncomplicated; G47.33 Obstructive sleep apnea (adult) (pediatric); G43.909 Migraine, unspecified, not intractable, without status migrainosus; R94.2 Abnormal results of pulmonary function studies; R91.8 Other nonspecific abnormal finding of lung field; F51.01 Primary insomnia; Z99.89 Dependence on other enabling machines and devices | CPT/HCPCS: 99212 ==

== ENCOUNTER 2025-01-26 11:04 | Outpatient (REF) | payer OTHER, SELFPAY ==
--- NOTE | ~2025-01-26 | XR_ITS ---
EXAMINATION: XR CHEST CLINICAL INFORMATION: J18.9 - Pneumonia, unspecified organism COMPARISON: X-ray 06/19/2021 TECHNIQUE: 2 views of the chest were obtained. FINDINGS: Cardiac and mediastinal silhouette is normal.. No focal consolidation or effusion. No pulmonary edema. No pneumothorax seen. No acute osseous findings. XR/XR chest 2V IMPRESSION: No acute cardiopulmonary disease. Electronically signed by: Gasper Emery MD 01/26/2025 02:58 PM EDT
[2025-01-26 14:00] LABS: Hematocrit 38.6 % (37.0-47.0); Hemoglobin 13.1 g/dl (12.0-16.0); Imm Gran Abs Auto 0.28 X10*3/uL (0.00-0.03); Imm Gran Pct Auto 2.6 % (0.0-0.4); Lymphocytes Absolute Auto 1.8 X10*3/uL (1.2-4.9); MANUAL DIFF FLAG SCAN; Mean Corpuscular HGB Conc 33.9 g/dl (31.0-35.0); Mean Corpuscular Hemoglobin 32.1 pg (27.0-33.0); Mean Corpuscular Volume 94.6 fL (80.0-98.0); NRBC Abs Auto 0.000 X10*3/uL (0.0-0.012); NRBC Pct Auto 0.0 /100WBC (0.0-0.2); PLT CLUMP 1; Red Blood Count 4.08 X10*6/uL (4.20-5.50); SCAN SMEAR FLAG 1
[2025-01-26 14:29] LABS: Platelet Count 233 X10*3/uL (160-400); White Blood Count 11.0 X10*3/uL (4.8-10.8)
[2025-01-26 14:47] LABS: Alanine Aminotransferase 29 U/L (0-31); Albumin Level 4.3 g/dL (3.5-5.0); Alkaline Phosphatase 86 U/L (39-117); Anion Gap 13 (12-20); Aspartate Amino Transferase 31 U/L (5-31); Blood Urea Nitrogen 19 mg/dL (9-16); Calcium 9.6 mg/dL (8.4-10.2); Carbon Dioxide 26 mmol/L (22-29); Chloride 107 mmol/L (96-108); Estimated Glomerular Filt Rate > 60; Magnesium 1.9 mg/dL (1.6-2.6); Potassium 4.0 mmol/L (3.3-5.1); Sodium 142 mmol/L (135-145); Total Protein 7.1 g/dL (6.5-8.0)
== END 2025-01-26 11:05 | disposition home or self-care (01) ==
LOC: HO.LAB 11:04
PROVIDERS: PCP Internal Medicine; Visit Provider Hospitalist
DX: J15.69 Pneumonia due to other Gram-negative bacteria (principal); G47.33 Obstructive sleep apnea (adult) (pediatric); J45.40 Moderate persistent asthma, uncomplicated; R94.2 Abnormal results of pulmonary function studies; R91.8 Other nonspecific abnormal finding of lung field; F51.01 Primary insomnia; J31.0 Chronic rhinitis; Z99.89 Dependence on other enabling machines and devices; Z79.51 Long term (current) use of inhaled steroids; Z87.891 Personal history of nicotine dependence; Z01.84 Encounter for antibody response examination
CPT/HCPCS: 36415; 71046; 80048; 80076; 82784; 82785; 83735; 85025; 85652; 99212

== ENCOUNTER 2025-01-26 11:04 | Outpatient (AMB) | payer OTHER, SELFPAY ==
[2025-01-26 11:17] VITALS: BP 94/60; PULSE 72; O2SAT 97; BMI 25.4
--- NOTE | 2025-01-26 11:17 | A.OFFVIS_ITS ---
Vital Signs 01/26/25 11:17 01/26/25 11:28 Height 5 ft 6 in Weight 157 lb 10.088 oz BMI 25.4 BP 94/60 112/70 Blood Pressure Location Lt brachial Rt brachial Position Sitting Pulse 72 Pulse Source Pulse Oximeter Pulse Oximetry (%) 97 Oxygen Delivery Method Room Air Intake Visit Reasons: Pneumonia Road Driver Required: No Accompanied by: Self / Same As Patient Allergies morphine Allergy (Severe, Verified 01/26/25 11:22) Heart Palpitations azithromycin Adverse Reaction (Verified 01/26/25 11:22) prolonged QT HPI Comments Details: The patient is a 64-year-old woman known asthma addition to obstructive sleep apnea with severe migraines. Patient also has insomnia. She has been using her CPAP. The CPAP therapy has been very effective beneficial. They do help her migraines and also decrease her cardiovascular risks. If however, is hard for her to tolerate the mask because it irritates her face. We talked about using liners. She will considered doing so. The meantime the Miriam view mask is most comfortable mask for her. She cannot use a nasal mask because she opens her mouth. She also uses a mouth guard for significant grinding of her teeth. The patient will continue using the Miriam view mask at this time. However, her machine does not appear to be as effective anymore. His more than 5 years old. The CPAP pressures done appeared to be as effective for her. At this point I will request a new CPAP machine to be able to provide more autonomic pressure changes more responsive to her obstruction in addition to being able to adequately get information from her machine to adjust her machine accordingly. I will send a new replacement CPAP prescription to [employer], her [employer]. She continues using her inhalers. She did have an x-ray during the last visit at some point at [facility] which demonstrated increased cardiac size. She is concerned about this. I have reassured her that is likely just with the x-ray appearance is but it does not have to be that her heart is actually big. Will repeat the x- ray at this time. If her x-ray still shows increased cardiac silhouette may be due in echocardiogram will be more helpful. 02/23/2023 the patient is here for a pulmonary follow-up visit. She was recently evaluated [facility] which she was having some substernal chest the ER she did undergo a CTA. We did have the report. Demonstrated some small airways disease due to some mosaic pattern. But otherwise no other acute illness noted. The patient was treated for costochondritis and she was discharged home. Cardiac studies were all normal. She still has some costochondral joint discomfort but much improved. The patient also has been having some increasing coughing primarily because of the which stopping the basement. Will go ahead and maximize her respiratory therapy. She has a hard time tolerating beta agonist therapy. The patient also has been using her CPAP. The CPAP therapy continues to be affecting beneficial. She does not sleep more than 3-4 hours a night so therefore she does use it every night but uses it effective for the amount of sleep that she has. Based on the fact that she only sleeps about 3 for hours a night her use age is closer to 80%. The CPAP therapy continues to be affecting beneficial. 08/03/2023 the patient is here for a pulmonary follow-up visit. Overall the doing well. No further episodes of chest pain which is reassuring. Still anxious at times. She does take the lorazepam at nighttime. She has been dealing with a lot of stress because of her 's health. In meantime she still struggles with sleep. She still sleeps minimal hours between 3-4 hours a night. After that she wakes up and she stays active. The patient does use her CPAP at nighttime CPAP therapy continues to be affecting beneficial. She does use it more than 90% of the time while she is sleeping. But since her sleep cycles so short it does not meet the criteria that we have on the overall population. She does have another machine. She does swab rooms and she uses her own machine when she sleeps in a different room. When she does that the machine is not recorded to the clot is recording to the card. She did bring that in and confirms the fact that she has been using the machine every night to sleep with. Respiratory pinto she is doing okay. Sleep she sometimes still uses the Lunesta as needed. Although she does feel irritable after using it she tries to avoid. We did again looked a report from her CTA. No additional imaging warranted. 02/08/2024 the patient is here for a pulmonary follow-up visit. She is doing well from a respiratory status. She continues uses CPAP every night. More than 4 hours a night when she can. Although she does not sleep a lot. Now that she is dealing with her 's sickly cancer diagnosis is very hard for her to get adequate sleep. The patient continues use respiratory medications with good effect. She did develop a cough. She was exposed to sick contact when grandson came over he was then diagnosed with pneumonia. I gave her a prescription of doxycycline that she can start if her cough gets worse. Otherwise the patient follow-up in 6 months. 08/11/2024 the patient is here for pulmonary follow-up visit. The patient overall has been doing very well. She has been taking care of her sick who has required a lot of effort and energy but finally he is feeling better. Unfortunately she did have a fall and she fractured her wrist requiring surgery. She is recovering well from that. In the meantime she is sleeping better at nighttime. She is using CPAP in the CPAP therapy continues to be affecting beneficial. Her AHI is well below 1 and her pressures are adequate. Her mask is also comfortable. From a respiratory status she does have the Alvesco that she uses on a regular basis with good adherence and has not required her rescue inhaler. She has not required any prednisone which is reassuring. The patient does not take any vaccines so we will defer any discussion about vaccines at th is time. The patient will follow-up in a year's time if she has any issues prior to that she will call for an earlier assessment. 01/26/2025 the patient is here for hospital follow-up visit. Apparently the patient was not usual state health when she woke up dizzy and unwell. She was sick enough that she wanted to go to the hospital so therefore an ambulance was called. When she went to the hospital she was noted to have bilateral pneumonia with evidence of early sepsis. She was given fluids and she was given IV antibiotics. The patient also was placed on steroids. Her CT scan again dem onstrated bilateral airspace disease. She was vaccinated because she was concerned about previous allergic reactions to vaccines. But she understands that she is going to get a pneumonia shot whenever she is completely better. Overall she is doing okay although feels tired and dizzy. Will go ahead and check x-ray and blood work today. She also complains of spasmodic area in the right diaphragmatic area. Will recheck his magnesium. She may benefit from a small dose of magnesium to try to help with spasms. Otherwise the patient is doing okay she is recovering well and will follow-up in 3-4 months. If she has any issues prior to this she can always call for an earlier assessment. In the meantime she does continue to use her CPAP. The CPAP therapy has been affecting beneficial she does use it for more than 4 hours a night. [facility] Medical History (Updated 01/28/25 @ 21:05 by Nathan Pantoja MD) Pneumonia Dysphagia Head and neck cancer Insomnia Dyspnea Abnormal diffusion capacity determined by pulmonary function test Fatigue Chronic rhinitis ODETTE on CPAP Asthma Family History Father No problems noted. Social History Patient Tobacco Use Status: Former Tobacco user Tobacco use type: Cigarette Years Smoked: 15 years Review of Systems Const Denies chills, Denies fatigue, Denies fever(s), Denies weight gain and Denies weight loss ENT Denies dizziness, Denies lip swelling and Denies tongue swelling Card Denies chest pain, Denies leg edema, Denies lightheadedness, Denies palpitations, Denies dyspnea on exertion, Denies orthopnea and Denies other Resp Denies cough and Denies dyspnea on exertion GI Denies hematochezia and Denies change in stool character Musc Reports as per HPI, Denies abnormal gait, Reports myalgias, Reports arthralgias and Denies tingling Neuro Denies abnormal gait, Denies dizziness and Denies tingling Psych Denies no additional complaints and Reports difficulty concentrating Endo Denies fatigue and Denies palpitations Vic/Lymph Denies easy bleeding and Denies lymphadenopathy Aller/Immun Denies lip swelling and Denies tongue swelling Physical Exam Vital Signs: Last Vital Signs Pulse 72 01/26/25 11:17 BP 112/70 01/26/25 11:28 Pulse Ox 97 01/26/25 11:17 Oxygen Delivery Method Room Air 01/26/25 11:17 BMI result Body Mass Index 25.4 Const General: alert Eyes Pupils: Equal, round and reactive pupils present Neck Neck: Yes normal visual inspection, Yes full ROM and Yes no lymphadenopathy Chest Chest palpation & inspection: normal inspection of the chest Resp Auscultation: no crackles and diminished lung sounds Cardio Rate: regular rate Rhythm: regular rhythm Heart sounds: S1 normal heart sound present and S2 normal heart sound present GI Palpation (GI): Soft to palpation and nontender Auscultation: normal bowel sounds General: Yes no CVA tenderness Back/Spine/Pelvis Back: no CVA tenderness Skin General skin exam: rashes and/or lesions noted Neuro Cranial nerves: Yes Equal, round and reactive pupils present Assessment & Plan Assessment & Plan (1) Pneumonia: Code(s): J18.9 - Pneumonia, unspecified organism Category: Medical Qualifiers: Pneumonia type: due to other aerobic Gram-negative bacteria Laterality: bilateral Lung location: lower lobe of lung Qualified Code(s): J15.6 - Pneumonia due to other Gram-negative bacteria (2) ODETTE on CPAP: Code(s): G47.33 - Obstructive sleep apnea (adult) (pediatric); Z99.89 - Dependence on other enabling machines and devices Category: Medical (3) Asthma: Code(s): J45.909 - Unspecified asthma, uncomplicated Category: Medical Qualifiers: Asthma severity: moderate Asthma persistence: persistent Asthma complication type: uncomplicated Qualified Code(s): J45.40 - Moderate persistent asthma, uncomplicated (4) Abnormal diffusion capacity determined by pulmonary function test: Comment: Moderate isolated diffusion impairment Code(s): R94.2 - Abnormal results of pulmonary function studies Category: Medical (5) Pulmonary nodules: Code(s): R91.8 - Other nonspecific abnormal finding of lung field Category: Medical (6) Insomnia: Code(s): G47.00 - Insomnia, unspecified Category: Medical Qualifiers: Insomnia type: primary Qualified Code(s): F51.01 - Primary insomnia (7) Chronic rhinitis: Code(s): J31.0 - Chronic rhinitis Category: Medical Plan Continue Alvesco stopped Spiriva daily MONICO as needed Mucinex OTC Continue APAP every night (typicall only sleep 3-4 hours a night. 80%usage based on her minimal sleep) Lunesta as needed, causing irritability CXR Bloodwork consider magnesium for muscle spasms F/U 12 months Orders: Orders XR chest 2V 01/26/25 J18.9 - Pneumonia, unspecified organism Magnesium 01/26/25 J18.9 - Pneumonia, unspecified organism Immunoglobulin E 01/26/25 J18.9 - Pneumonia, unspecified organism Erythrocyte Sedimentation Rate 01/26/25 J18.9 - Pneumonia, unspecified organism Immunoglobulins,IgG IgA IgM 01/26/25 J18.9 - Pneumonia, unspecified organism Complete Blood Count Auto Diff 01/26/25 J18.9 - Pneumonia, unspecified organism Basic Metabolic Panel 01/26/25 J18.9 - Pneumonia, unspecified organism Liver Panel 01/26/25 J18.9 - Pneumonia, unspecified organism Coding Level of Care Code Est Pt Level 4 (72608) Complex EM visit Add On G2211 Diagnoses Pneumonia of both lower lobes due to other aerobic gram-negative bacteria J15.6 Pneumonia type: due to other aerobic Gram-negative bacteria Laterality: bilateral Lung location: lower lobe of lung ODETTE on CPAP G47.33; Z99.89 Moderate persistent asthma without complication J45.40 Asthma severity: moderate Asthma persistence: persistent Asthma complication type: uncomplicated Abnormal diffusion capacity determined by pulmonary function test R94.2 Pulmonary nodules R91.8 Primary insomnia F51.01 Insomnia type: primary Chronic rhinitis J31.0 Time Spent (min) 17
[2025-01-26 11:28] VITALS: BP 112/70
--- OUTSIDE RECORDS SUMMARY | 2025-01-26 13:21 | XMS_ITS | Clinical Summary ---
Author Organization [address] [place] [address] Address [address] [place] [address] Phone Care Team Providers Care Validation Software Facilitator Name Role Phone Meliton Cho Primary Care Provider + Allergies Active Allergy Reactions Criticality Noted Date Comments Chlorhexidine 06/25/2021 Topical Ethyl Chloride Rash 06/25/2021 Morphine 04/22/2017 Heart palpitations Ropinirole 04/22/2017 Tizanidine 04/22/2017 Medications levalbuterol (XOPENEX HFA) 45 mcg/actuation inhaler Inhale 1-2 Puffs into the lungs every 4 hours as needed. Active aspirin 81 mg EC tablet Take by mouth. Activ e calcium carbonate/vitamin D3 (CALCIUM 600 WITH VITAMIN D3 ORAL) Take 1 tablet by mouth at bedtime. Active estradioL (ESTRACE) 0.01 % (0.1 mg/gram) vaginal cream Place vaginally See Admin Instructions. Active eszopiclone (LUNESTA) 1 mg tablet Take 1 tablet (1 mg total) by mouth at bedtime as needed. Active UNABLE TO FIND Spacer/Aero-Hol ding Chambers (AEROCHAMBER MV) Misc, 1 Device by Does not apply route as needed (wheezing with the albuterol). 018 Active omega-3 acid ethyl esters (LOVAZA) 1 gram capsule Take by mouth at bedtime. Active LORazepam (ATIVAN) 0.5 mg tablet Take 1 tablet (0.5 mg total) by mouth every 12 (twelve) hours if needed for anxiety. Active MULTIVITAMIN ORAL Take by mouth. Active levothyroxine (SYNTHROID, LEVOTHROID) 150 mcg tablet Take 1 Tablet by mouth 5 Times Weekly. Active propranolol LA (Inderal LA) 160 mg 24 hr capsuleIndication s:Benign essential hypertension,Palp itations Take 1 capsule (160 mg total) by mouth 1 (one) time each day. Do not crush, chew, or split. 30 capsule 11 Active Additional Information Patient taking differently:160 mg oralNightly, Do not crush, chew, or split., Reported on 01/14/2025 tacrolimus (PROTOPIC) 0.1 % ointment Apply 1 Application topically 2 (two) times a day. To face Active pantoprazole (PROTONIX) 40 mg EC tablet Take 1 tablet (40 mg total) by mouth 2 (two) times a day. 60 each 2024 Active budesonide (PULMICORT) 0.5 mg/2 mL nebulizer solution Take 2 mL (0.5 mg total) by nebulization 2 (two) times a day for 10 days. Rinse mouth with water after use to reduce aftertaste and incidence of candidiasis. Do not swallow. 40 mL Active ipratropium (ATROVENT) 0.02 % nebulizer solution Take 2.5 mL (0.5 mg total) by nebulization every 6 (six) hours for 10 days. 100 mL Active simvastatin (ZOCOR) 20 mg tablet TAKE 1 TABLET(20 MG) BY MOUTH AT BEDTIME 90 tablet 2 Active fluconazole (DIFLUCAN) 200 mg tablet Take once a week for 3 weeks 2024 Discontinued oxyCODONE-acetami nophen (PERCOCET) 5-325 mg per tablet As needed for pain every 4 hours 2024 Discontinued silver sulfADIAZINE (SILVADENE, SSD) 1 % cream Apply topically to nail bed daily 2024 Discontinued ciclesonide (ALVESCO) 80 mcg/actuation inhaler Inhale 1 Puff into the lungs 2 times daily. 2024 Discontinued(S top Taking at Discharge) rizatriptan (MAXALT-WORKFORCE CONSULTANT) 10 mg disintegrating tablet Take 10 mg by mouth as needed. May repeat in 2 hours if needed 2024 Discontinued ammonium lactate (AmLactin) 12 % lotion Apply topically if needed for dry skin. 400 g 024 2024 Discontinued simvastatin (Zocor) 20 mg tablet Take 1 tablet (20 mg total) by mouth at bedtime. 90 each 3 025 2024 Discontinued pantoprazole (PROTONIX) 40 mg EC tablet Take 1 tablet (40 mg total) by mouth at bedtime. 2024 Discontinued doxycycline (MONODOX) 100 mg capsule Take 1 capsule (100 mg total) by mouth every 12 (twelve) hours for 10 days. Take with at least 8 ounces (large glass) of water, do not lie down for 30 minutes after. Administer 2 hours before or after multivitamins, antacids, or other products containing polyvalent cations (i.e., calcium, iron, magnesium, selenium, zinc). 20 each 2024 guaiFENesin (MUCINEX) 600 mg 12 hr tablet Take 1 tablet (600 mg total) by mouth every 12 (twelve) hours for 10 days. Do not crush, chew, or split. 20 each 2024 cefpodoxime (VANTIN) 200 mg tablet Take 1 tablet (200 mg total) by mouth 2 (two) times a day for 10 days. 20 each 2024 methylPREDNISolon e (MEDROL DOSPAK) 4 mg tablet Take as directed on package. 21 tablet 2024 Active Problems Problem Noted Date Diagnosed Date Nausea & vomiting 01/13/2025 Hypotension 01/13/2025 AMS (altered mental status) 01/13/2025 Sepsis, due to unspecified o rganism, unspecified whether acute organ dysfunction present (CMS/HCC V24, CMS/HCC V28) 01/13/2025 Chest pain 03/10/2023 Overview (01/10/2024): Last Assessment & Plan: Patient recently seen at [facility] emergency room for ongoing complaints of chest [...] and making purposeful strides towards weight loss. Assessment & Plan (11/16/2024 4:20 PM EDT): Her blood pressure is significantly elevated during today's exam with a reading of 180/92. She did bring her home blood pressure cuff with her and this correlated appropriately. Subsequently, we will increase her propranolol to 180 mg daily. Educated on the importance of diet lifestyle to help further assist in reducing blood pressure. The patient was encouraged to follow low-salt low-fat diet, make purposeful strides towards weight loss, and engage in routine aerobic exercise as tolerated. We also discussed the importance of stress management to help reduce her blood pressure as well. She is in the process of finding a new psychiatric provider. Orders: propranolol LA (Inderal LA) 160 mg 24 hr capsule; Take 1 capsule (160 mg total) by mouth 1 (one) time each day. Do not crush, chew, or split. Bradycardia 07/11/2020 Overview (01/10/2024): Last Assessment & Plan: Her heart rates are stable on her atenolol. She is having no symptoms from this. We will continue to monitor. Palpitations 07/11/2020 Overview (01/10/2024): Last Assessment & Plan: Her palpitations have been stable. She is not had any significant episodes. She will continue on atenolol for protection. Assessment & Plan (11/16/2024 4:20 PM EDT): Patient does endorse episodes of palpitations. Will update propranolol as outlined above. Aware to be mindful of her caffeine and alcohol intake as well as her hydration status. Orders: propranolol LA (Inderal LA) 160 mg 24 hr capsule; Take 1 capsule (160 mg total) by mouth 1 (one) time each day. Do not crush, chew, or split. Prolonged QT interval syndrome 07/11/2020 Overview (01/10/2024): [...] Encounters Date Type Department Care Team Description 01/25/2025 Telephone [facility] [address] [facility] [address] [place] [address] Mj Dale MD 01/18/2025 Telephone [facility] [address] [place] [address] Bautista Mei MD 01/13/2025 3:11 PM EDT - 01/15/2025 1:37 PM EDT Hospital Encounter [facility] [address] [place] [address] Jessica Serrato DO Kokkinos, Erika, MD Jones, Christopher, MD Bell, Alistair A, MD Japaridze, Anna, MD Hypotension, unspecified hypotension type (Primary Dx); Sepsis, due to unspecified organism, unspecified whether acute organ dysfunction present (CMS/HCC V24, CMS/HCC V28); Hypomagnesemia; Nausea and vomiting, unspecified vomiting type; Aspiration pneumonia of right lower lobe, unspecified aspiration pneumonia type (CMS/HCC V24, CMS/HCC V28) Discharge Disposition: Home or Self Care 12/05/2024 Telephone [facility] - [address] [place] [address] Bautista Mei MD 12/05/2024 Telephone [facility] [address] [place] [address] Margarita Mclean MA 12/05/2024 Telephone [facility] [address] [place] [address] Bautista Mei MD 11/17/2024 Telephone [facility] [address] [place] [address] Alisha Mustafa NP 11/16/2024 2:10 PM EDT Office Visit [facility] - [address] [place] [phone] Alisha Mustafa NP Benign essential hypertension (Primary Dx); Palpitations 10/27/2024 Telephone [facility] - [address] [place] [phone] Bautista Mei MD from Last 3 Months Surgical History Surgery [...] drink = 0.6 oz pur e alcohol) Housing Instability Answer Date Recorde d Are you worried that in the next 2 months you may not have stable housing? Patient declined 01/14/2025 Food Access & Nutrition Answer Date Rec orded Do you have access to a vari ety of food including fruits and vegetables? Patient declined 01/14/2025 Health Literacy Answer Date Recorded How often do you need to hav e someone help you when you read instructions, pamphlets, or other written material from your doctor or pharmacy? Patient declined 01/14/2025 Caregiver: How often do you need to have someone help you when you read instructions, pamphlets, or other written material from your doctor or pharmacy? Not on file 025 Financial Risk Answer Date Recorded How hard is it for you to pa y for the very basics like food, housing, medical care, and air conditioning / heating? Patient declined 01/14/2025 Transportation Answer Date Recorded Has the lack of transportati on kept you from meetings, work, or from getting things needed for daily living? Patient declined 01/14/2025 Has the lack of transportati on kept you from medical appointments or from getting medications? Patient declined 01/14/2025 Social Isolation Answer Date Recorded How often do you feel lonely or isolated from those around you? Patient declined 01/14/2025 Food Risk Answer Date Recorded Within the past 12 months we worried whether our food would run out before we got money to buy more. Patient declined 025 Within the past 12 months th e food we bought just didn't last and we didn't have money to get more. Patient declined 01/03 Dependent Care Answer Date Recorded Do you need help finding or paying for care for your loved ones. For example, child care counselor or elderly care for an older adult? Patient declined 01/14/2025 Education Answer Date Recorded Do you think completing more education or training, like finishing a GED, going to college, or learning a trade, would be helpful for you? Patient declined 01/14/2025 Employment and Income Answer Date Recor ded During the last four weeks, have you been actively looking for work? Patient declined 01/14/2025 Living Situation Answer Date Recorded What is your living situation? Unrecognized valu e 01/14/2025 Interpersonal Safety Answer Date Record ed Physical Abuse Unrecognized value 01/14/2025 Verbal Abuse Unrecognized value 01/14/2025 Comments Unknown Sex and Gender Information Value Date Recorded Sex Assigned at Female 06/13/2024 5:35 PM EDT Legal Sex Female 1:33 PM EST Gender Identity Female 06/13/2024 5:35 PM EDT Sexual Orientation Straight 06/13/2024 5: 35 PM EDT Travel History Travel Start Travel End [facility] 12/14/2024 01/02/2025 Obstetrics History Last Filed Vital Signs Vital Sign Reading Time Taken Comments Blood Pressure 153/92 01/15/2025 11:02 AM EDT Pulse 97 01/15/2025 11:02 AM EDT Temperature 37.1 C (98.7 F) 01/15/2025 7:37 AM EDT Respiratory Rate 18 01/15/2025 7:37 AM EDT Oxygen Saturation 94% 01/15/2025 7:37 AM EDT Inhaled Oxygen Concentration - - Weight 74.4 kg (164 lb 0.4 oz) 01/14/2025 8:20 A M EDT Height 165.1 cm (5' 5 ) 01/14/2025 8:20 AM EDT Body Mass Index 27.29 01/14/2025 8:20 AM EDT Plan of Treatment Upcoming Encounters Date Type Department Care Team (Late st Contact Info) Description 03/12/2025 1:45 PM EST Office Visit Orth[facility] Surgery - [place] [address] [address] Mj Jerez, DPM [address] [address] Health Maintenance Due Date Last Done Comments Breast Cancer Screening 1961 Colorectal Cancer Screening: Colonoscopy 1961 Cervical Cancer Screening: Pap Smear 1982 Pneumococcal Vaccine: 50+ Years (2 of 2 - PCV) 02/27/2009 02/28/2008 RSV Immunization Adult Patients (1 - Risk 50-74 years 1-dose series) 08/10/2011 Zoster Vaccines (1 of 2) 08/10/2011 HIV Screening 03/03/2022 Hepatitis C Screening 03/03/2022 Depression Screening 04/05/2024 COVID-19 Vaccine (3 - season) 2024 07/29/2020, 07/01/2020 Influenza Vaccine (#1) 2024 5, 12/28/2013, 02/28/2008 Social Influencers of Health Screening 01/14/2026 01/14/2025 Hypertension/CHF/CAD Annual BMP Blood Test 01/15/2026 01/15/2025, 01/14/2025, 01/13/2025, Additional history exists Cholesterol Screening (Lipid Panel) 08/22/2029 08/22/2024 DTaP,Tdap,and Td Vaccines (4 - Td or Tdap) 01/14/2032 01/13/2022, 12/30/2011, 12/07/2010 Hepatitis A Vaccines Aged Out 06/13/2007, 11/18/19 07 No longer eligible based on patient's age [...] 20 months Aged Out No longer eligible based on patient's age to complete this topic Varicella Vaccines Aged Out No longer eligible based on patient's age to complete this topic Procedures Procedure Name Priority Date/Time Associated Diagnosis Comments LACTATE Routine 01/15/2025 8:08 AM EDT CBC WITH AUTO DIFFERENTIAL Routine 01/15/2025 6:07 AM EDT PHOSPHORUS Routine 01/15/2025 6:07 AM EDT MAGNESIUM Routine 01/15/2025 6:07 AM EDT BASIC METABOLIC PANEL Routine 01/15/2025 6:07 AM EDT CBC AND DIFFERENTIAL Routine 01/15/2025 6:07 AM EDT CPAP NIV Routine 01/14/2025 12:16 PM EDT LEGIONELLA ANTIGEN URINE, EIA STAT 01/14/2025 12:16 PM EDT PEP THERAPY Routine 01/14/2025 9:26 AM EDT PEP THERAPY Routine 01/14/2025 9:26 AM EDT TRANSTHORACIC ECHOCARDIOGRAM (TTE) COMPLETE W/ CONTRAST Routine 01/14/2025 8:20 AM EDT Hypotension, unspecified hypotension type CBC WITH AUTO DIFFERENTIAL Routine 01/14/2025 5:41 AM EDT LACTATE Routine 01/14/2025 5:41 AM EDT MAGNESIUM Routine 01/14/2025 5:41 AM EDT PHOSPHORUS Routine 01/14/2025 5:41 AM EDT CBC AND DIFFERENTIAL Routine 01/14/2025 5:41 AM EDT BASIC METABOLIC PANEL Routine 01/14/2025 5:41 AM EDT MRSA PCR STAT 01/13/2025 11:19 PM EDT B-TYPE NATRIURETIC PEPTIDE STAT 01/13/2025 10:[address] CHEST WO CONTRAST STAT 01/13/2025 10:13 PM EDT LACTATE STAT 01/13/2025 7:02 PM EDT MANUAL DIFFERENTIAL - SYSMEX WAM STAT 01/13/2025 5:45 PM EDT DUMONT URINE CULTURE TUBE STAT 01/13/2025 5:45 PM EDT URINALYSIS WITH REFLEX MICROSCOPIC AND CULTURE STAT 01/13/2025 5:45 PM EDT URINALYSIS WITH REFLEX MICROSCOPIC AND CULTURE STAT 01/13/2025 5:45 PM EDT CBC WITH AUTO DIFFERENTIAL STAT 01/13/2025 5:45 PM EDT CBC AND DIFFERENTIAL STAT 01/13/2025 5:45 PM EDT RESPIRATORY VIRUS PANEL MOLECULAR STUDY STAT 01/13/2025 5:33 PM EDT CULTURE BLOOD STAT 01/13/2025 5:[address] ABDOMEN PELVIS W CONTRAST STAT 01/13/2025 4:25 PM EDT THYROXINE FREE STAT Add-on 01/13/2025 4:03 PM EDT VITAMIN B12 AND FOLATE Add-On 4:03 PM EDT PROCALCITONIN Add-On 01/13/2025 4:03 PM EDT C-REACTIVE PROTEIN Add-On 01/13/2025 4: 03 PM EDT AMMONIA STAT 01/13/2025 4:03 PM EDT ACTIVATED PARTIAL THROMBOPLASTIN TIME STAT 01/13/2025 4:03 PM EDT PROTHROMBIN TIME WITH INR STAT 01/13/2025 4:03 PM EDT THYROID STIMULATING HORMONE STAT 01/13/2025 4:03 PM EDT TYPE AND SCREEN STAT 01/13/2025 4:03 PM EDT TROPONIN I HIGH SENSITIVITY STAT 01/13/2025 4:03 PM EDT MAGNESIUM STAT 01/13/2025 4:03 PM EDT HEPATIC FUNCTION PANEL STAT 4:03 PM EDT BASIC METABOLIC PANEL STAT 01/13/2025 4:03 PM EDT CULTURE BLOOD STAT 01/13/2025 4:03 PM EDT LACTATE STAT 01/13/2025 4:01 PM EDT XR CHEST 1 VIEW STAT 01/13/2025 3:48 PM EDT ECG 12-LEAD STAT 01/13/2025 3:38 PM EDT POCT GLUCOSE BLOOD Routine 01/13/2025 3: 32 PM EDT LIPID PANEL WITH CHOLESTEROL AND HDL RATIO Routine 08/22/2024 2:02 PM EDT from Last 3 Months or Most Recently Relevant to Health Maintenance Results * Lactate (01/15/2025 8:08 AM EDT) Only the most recent of4 resultswithin the time period is included. [facility] Lactate 1.5 0.4 - 2.0 mmol/L LAB CHEMISTRY METHOD 01/15/2025 8:48 AM EDT [facility]) [facility] Blood Venous blood specimen / Unknown Venipuncture / Unknown 01/15/2025 8:08 AM EDT 01/15/2025 8:22 AM EDT us Krystina Mao NP LAB BLOOD ORDERABLES Final Resul t [facility] [address] [place] [address], * (ABNORMAL) CBC auto differential (01/15/2025 6:07 AM EDT) Only the most recent of3 resultswithin the time period is included. WBC 22.5(H) 4.8 - 10.8 K/mcL LAB HEMETOLOGY METHOD 01/15/2025 7:25 AM EDT [facility] RBC 3.30(L) 3.80 - 4.80 M/mcL LAB HEMETOLOGY METHOD 01/15/2025 7:25 AM EDT [facility] Hemoglobin 10.9(L) 11.5 - 16.0 g/dL LAB HEMETOLOGY METHOD 01/15/2025 7:25 AM EDT [facility] Hematocrit 32.6(L) 35.0 - 47.0 % LAB HEMETOLOGY METHOD 01/15/2025 7:25 AM EDT [facility] MCV 98.2(H) 79.0 - 98.0 FL LAB HEMETOLOGY METHOD 01/15/2025 7:25 AM EDT [facility] MCH 32.8(H) 27.0 - 32.0 pcg LAB HEMETOLOGY METHOD 01/15/2025 7:25 AM EDT [facility] MCHC 33.4 32.0 - 37.0 g/dL LAB HEMETOLOGY METHOD 01/15/2025 7:25 AM EDT [facility] RDW 12.6 11.0 - 15.0 % LAB HEMETOLOGY METHOD 01/15/2025 7:25 AM EDT [facility] Platelets 203 130 - 400 K/mcL LAB HEMETOLOGY METHOD 01/15/2025 7:25 AM EDT [facility] MPV 11.0 7.0 - 11.0 FL LAB HEMETOLOGY METHOD 01/15/2025 7:25 AM [facility] NRBC 0.0 <1.0 % LAB HEMETOLOGY METHOD 01/15/2025 7:25 AM [facility] NRBC Absolute 0.00 <0.10 K/mcL LAB HEMETOLOGY METHOD 01/15/2025 7:25 AM [facility] Neutrophils Relative 90.5 % LAB HEMETOLOGY METHOD 01/15/2025 7:25 AM [facility] Comment:This is an appended report. These results have been appended to a previously preliminary verified report. Lymphocytes Relative 4.0 % LAB HEMETOLOGY METHOD 01/15/2025 7:25 AM [facility] Comment:This is an appended report. These results have been appended to a previously preliminary verified report. Monocytes Relative 2.9 % LAB HEMETOLOGY METHOD 01/15/2025 7:25 AM [facility] Comment:This is an appended report. These results have been appended to a previously preliminary verified report. Eosinophils Relative 1.2 % LAB HEMETOLOGY METHOD 01/15/2025 7:25 AM [facility] Comment:This is an appended report. These results have been appended to a previously preliminary verified report. Basophils Relative 0.2 % LAB HEMETOLOGY METHOD 01/15/2025 7:25 AM [facility] Comment:This is an appended report. These results have been appended to a previously preliminary verified report. Immature Granulocytes Relative 1.2 % LAB HEMETOLOGY METHOD 01/15/2025 7:25 AM [facility] Comment:This is an appended report. These results have been appended to a previously preliminary verified report. Neutrophils Absolute 20.33(H) 1.50 - 7.00 K/mcL LAB HEMETOLOGY METHOD 01/15/2025 7:25 AM [facility] Comment:This is an appended report. These results have been appended to a previously preliminary verified report. Lymphocytes Absolute 0.90(L) 1.00 - 5.00 K/mcL LAB HEMETOLOGY METHOD 01/15/2025 7:25 AM EDT [facility] Comment:This is an appended report. These results have been appended to a previously preliminary verified report. Monocytes Absolute 0.65 0.20 - 1.00 K/mcL LAB HEMETOLOGY METHOD 01/15/2025 7:25 AM EDT [facility] Comment:This is an appended report. These results have been appended to a previously preliminary verified report. Eosinophils Absolute 0.27 0.00 - 0.50 K/mcL [facility] 01/15/2025 7:25 AM EDT [facility] Comment:This is an appended report. These results have been appended to a previously preliminary verified report. Basophils Absolute 0.05 0.00 - 0.20 K/[facility] 01/15/2025 7:25 AM EDT [facility] Comment:This is an appended report. These results have been appended to a previously preliminary verified report. Immature Granulocytes Absolute 0.26(H) 0.00 - 0.03 K/[facility] 01/15/2025 7:25 AM EDT [facility] Comment:This is an appended report. These results have been appended to a previously preliminary verified report. Blood Venous blood specimen / Unknown Venipuncture / Unknown 01/15/2025 6:07 AM EDT 01/15/2025 6:48 AM EDT us Krystina Mao NP LAB BLOOD ORDERABLES Final Resul t [facility]) [facility] [address] [place] [address], * (ABNORMAL) Phosphorus (01/15/2025 6:07 AM EDT) Only the most recent of2 resultswithin the time period is included. Phosphorus 2.3(L) 2.5 - 4.5 mg/dL LAB CHEMISTRY METHOD 01/15/2025 7:28 AM EDT [facility] Blood Venous blood specimen / Unknown Venipuncture / Unknown 01/15/2025 6:07 AM EDT 01/15/2025 6:47 AM EDT Krystina Mayco LAB BLOOD ORDERABLES Final Resul t Performing Organization Address City/[facility] de Phone Number [facility] [address] [place] [address], [place] [phone] * Magnesium (01/15/2025 6:07 AM EDT) Only the most recent of3 resultswithin the time period is included. Pathologist [facility] Magnesium 1.9 1.9 - 2.6 mg/dL LAB CHEMISTRY METHOD 01/15/2025 7:28 AM EDT [facility] Blood Venous blood specimen / Unknown Venipuncture / Unknown 01/15/2025 6:07 AM EDT 01/15/2025 6:47 AM EDT Krystina Mao NP LAB BLOOD ORDERABLES Final Resul t Performing Organization Address [facility]/ZIP Or de Phone Number [facility] [address] [place] [address], [place] [phone] * (ABNORMAL) Basic metabolic panel (01/15/2025 6:07 AM EDT) Only the most recent of3 resultswithin the time period is included. Sodium 141 133 - 145 mmol/L LAB CHEMISTRY METHOD 01/15/2025 7:28 AM EDT [facility] Potassium 4.0 3.5 - 5.5 mmol/L LAB CHEMISTRY METHOD 01/15/2025 7:28 AM EDT [facility] Chloride 110 96 - 110 mmol/L LAB CHEMISTRY METHOD 01/15/2025 7:28 AM [facility] CO2 25 21 - 32 mmol/L LAB CHEMISTRY METHOD 01/15/2025 7:28 AM [facility] Anion Gap 6 3 - 11 LAB CHEMISTRY METHOD 01/15/2025 7:28 AM [facility] Glucose 136(H) 70 - 100 mg/dL LAB CHEMISTRY METHOD 01/15/2025 7:28 AM [facility] BUN 12 5 - 25 mg/dL LAB CHEMISTRY METHOD 01/15/2025 7:28 AM [facility] Creatinine 0.60 0.50 - 1.10 mg/dL LAB CHEMISTRY METHOD 01/15/2025 7:28 AM [facility] eGFR 101 >=60 mL/min/1. 73m2 LAB CHEMISTRY METHOD 01/15/2025 7:28 AM [facility] Comment:Calculation based on the Chronic Kidney Disease Epidemiology Collaboration (CKD-EPI) equation refit without adjustment for race. BUN/Creatinine Ratio 20.0 LAB CHEMISTRY METHOD 01/15/2025 7:28 AM [facility] Calcium 9.1 8.5 - 10.5 mg/dL LAB CHEMISTRY METHOD 01/15/2025 7:28 AM [facility] Blood Venous blood specimen / Unknown Venipuncture / Unknown 01/15/2025 6:07 AM EDT 01/15/2025 6:47 AM EDT us Krystina Mao NP LAB BLOOD ORDERABLES Final Resul t [facility] [address] [place] [address], * Legionella antigen urine, EIA (01/14/2025 12:16 PM EDT) Legionella Antigen, Ur Negative Negative 01/14/2025 2:34 PM EDT [facility] Urine Urine specimen from urethra / Unknown Non-blood Collection / Unknown 01/14/2025 12:16 PM EDT 01/14/2025 1:17 PM EDT Narrative [facility] - 01/14/2025 2:34 PM EDT Negative for Legionella pneumophilia serogroup 1 antigen. This presumptive result suggests no current or recent infection due to L. pneumophilia serogroup 1. Culture is recommended if Legionella infection is till suspected, as other serogroups and species of Legionella are not detected by this test. us Krystina Mao NP LAB URINE ORDERABLES Final Resul t [facility] [address] [place] [address], [place] [phone] * TRANSTHORACIC ECHOCARDIOGRAM (TTE) COMPLETE W/ CONTRAST (01/14/2025 8:20 AM EDT) Left [facility] [place] 4.7 cm CV PACS Left Atrium Major [place] 4.9 cm CV PACS LA Area Sys (A2C) 18 cm2 CV PACS LA Area Sys (A4C) 17 cm2 CV PACS LA Volume (BP) 49 mL CV PACS RA Area 11.8 cm2 CV PACS RA 2D Volume 27 mL CV PACS Aortic Sinus Valsalva 3.4 cm CV PACS Ascending Aorta 3.1 cm CV PACS IVSD 0.8 0.6 - 0.9 cm CV PACS LVIDD 5.0 3.8 - 5.2 cm CV PACS LVIDS 2.6 2.2 - 3.5 cm CV PACS LVOT Diameter 2.1 cm CV PACS LVOT Mean Severo 0.8 m/s CV PACS LVOT Mean Grad 3 mmHg CV PACS LVOT Peak VTI 25.1 cm CV PACS LVOT Peak Severo 1.1 m/s CV PACS LVOT Peak Gradient 5 mmHg CV PACS LVPWD 0.8 0.6 - 0.9 cm CV PACS MV E' Tissue Velocity Lateral 13 cm/s CV PACS MV E' Tissue Velocity Septal 9 cm/s CV PACS LVOT Area 3.5 cm2 CV PACS LVOT Stroke Volume 87 mL CV PACS E Wave Deceleration Time 180 119 - 242 ms CV PACS MV Peak A Severo 0.78 m/s CV PACS MV Peak E Severo 0.87 m/s CV PACS RV Diastolic Basal Dimension 3.5 2.5 - 4.1 cm CV PACS RV S' 15 cm/s CV PACS TAPSE 29 mm CV PACS E/E' Ratio Septal 10 CV PACS E/E' Ratio Averaged 8 CV PACS LVOT Stroke Index 48 mL/m2 CV PACS Relative Wall Thickness ratio 0.32 CV PACS FS 48 % CV PACS LV Mass 2D 136 g CV PACS Ascending Aorta Index 1.70 cm/m2 CV PACS LVOT flow 277 mL/s CV PACS RA 2D Volume Index 15 mL/m2 CV PACS LVIDD Index 2.75 cm/m2 CV PACS LVIDS Index 1.43 cm/m2 CV PACS E/A Ratio 1.1 CV PACS E/E' Ratio Lateral 7 CV PACS LA Volume Index (BP) 27 mL/m2 CV PACS LV Mass Index 2D 75 g/m2 CV PACS BSA 1.85 m2 CV PACS Est. RA Pressure 3 mmHg CV PACS Anatomical Region Laterality Modality Ultrasound Narrative 01/15/2025 10:11 AM EDT Left ventricle cavity size is normal. Left ventricle wall thickness is normal. No regional LV wall motion abnormalities noted.Left ventricular systolic function is in the normal range with an ejection fraction of 60-65%. Normal diastolic function Right ventricle cavity is normal. Right ventricular systolic function is normal. Normal left and right atrium No significant valvular abnormality. Trivial AI, trivial MR No significant change from July 23, 2021. Left Ventricle Left ventricle cavity size is normal. Wall thickness is normal. Systolic function is normal with an ejection fraction of 60-65%. There are no regional LV wall motion abnormalities. There is no diastolic dysfunction. Right Ventricle Right ventricle cavity appears normal. Systolic function is normal. Left Atrium Left atrium cavity size is normal. Right Atrium Right atrium cavity is normal. IVC/SVC Inferior vena cava structure is normal. Mitral Valve The leaflets are mildly thickened. There is trace regurgitation. There is no evidence of mitral valve stenosis. Tricuspid Valve Tricuspid valve structure is normal. Tricuspid regurgitation is inadequate for estimation of right ventricular systolic pressure. There is no evidence of tricuspid valve stenosis. Aortic Valve The aortic valve is trileaflet. There is mild regurgitation. There is no evidence of aortic valve stenosis. Pulmonic Valve Visualized portions of the pulmonic valve appear normal. There is no regurgitation or stenosis. Ascending Aorta The aorta appears normal in size. Pericardium Pericardium appears normal. There is no pericardial effusion. Study Details Overall the study quality was technically difficult. Definity contrast was given to enhance imaging. us Mj Mart MD CV ECHO PROCEDURES Final Re sult * MRSA molecular study (01/13/2025 11:19 PM EDT) [facility] MRSA Screen PCR Not Detected Not Detected LAB MICROBIOLOGY METHOD 01/14/2025 8:46 AM EDT [facility] Swab Both anterior nares / Unknown Non-blood Collection / Unknown 01/13/2025 11:19 PM EDT 01/14/2025 12:21 AM EDT Mj Mart MD LAB MICROBIOLOGY - GENERAL ORDERABLES Final Result Performing Organization Address [facility]/ZIP Co de Phone Number [facility] [address] [place] [address], [place] [phone] * (ABNORMAL) B-type natriuretic peptide (01/13/2025 10:20 PM EDT) [facility] BNP 118(H) <=100 pcg/mL LAB CHEMISTRY METHOD 01/13/2025 11:10 PM EDT [facility] Blood Venous blood specimen / Unknown Venipuncture / Unknown 01/13/2025 10:20 PM EDT 01/13/2025 10:31 PM EDT Isabelle Dawson NP LAB BLOOD ORDERABLES Fin al Result Performing Organization Address City/[facility]/ZIP Co de Phone Number [facility] [address] [place] [address], [place] [phone] * CT Chest wo Contrast (01/13/2025 10:13 PM EDT) Anatomical Region Laterality Modality Body Computed Tomogra phy 01/13/2025 10:4 2 PM EDT Impressions 01/13/2025 10:42 PM EDT 1. Cardiomegaly. 2. Small bilateral pleural effusions. 3. Bilateral airspace infiltrates related to an infectious process. This document has been electronically signed by: Bay Hernandez MD on 01/13/2025 22:42:27 Narrative 01/13/2025 10:42 PM EDT INDICATION: dyspnea CT chest without contrast Comparison: CT/SR - CHEST ANGIOGRAPHY CT - 02/08/23 20:28 EST Findings: Cardiomegaly. The visualized thyroid and mediastinum are unremarkable. Small bilateral pleural effusions. The visualized upper abdomen is unremarkable. The bones are intact. Bilateral airspace infiltrates related to an infectious process. Procedure Note Bay Hernandez MD - 01/13/2025 INDICATION: dyspnea CT chest without contrast Comparison: CT/SR - CHEST ANGIOGRAPHY CT - 02/08/23 20:28 EST Findings: Cardiomegaly. The visualized thyroid and mediastinum are unremarkable. Small bilateral pleural effusions. The visualized upper abdomen is unremarkable. The bones are intact. Bilateral airspace infiltrates related to an infectious process. IMPRESSION: 1. Cardiomegaly. 2. Small bilateral pleural effusions. 3. Bilateral airspace infiltrates related to an infectious process. This document has been electronically signed by: Bay Hernandez MD on 01/13/2025 22:42:27 Mj Mart MD IM CT PROCEDURES Final Res ult * (ABNORMAL) Urinalysis with reflex microscopic and culture (01/13/2025 5:45 PM EDT) Specific [place] Urine >1.045(H) 1.003 - 1.030 LAB URINALYSIS - AUTOMATED METHOD 01/13/2025 6:23 PM EDT [facility] pH, Urine 6.5 5.0 - 8.0 pH LAB URINALYSIS - AUTOMATED METHOD 01/13/2025 6:23 PM EDT [facility] Leukocytes, Urine Negative Negative LAB URINALYSIS - AUTOMATED METHOD 01/13/2025 6:23 PM EDT [facility] Nitrite, Urine Negative Negative LAB URINALYSIS - AUTOMATED METHOD 01/13/2025 6:23 PM EDT [facility] Protein, Urine Negative <=Trace mg/dL LAB URINALYSIS - AUTOMATED METHOD 01/13/2025 6:23 PM EDT [facility] Glucose, Urine Negative Negative mg/dL LAB URINALYSIS - AUTOMATED METHOD 01/13/2025 6:23 PM EDT [facility] Ketones, Urine Negative Negative mg/dL LAB URINALYSIS - AUTOMATED METHOD 01/13/2025 6:23 PM T [facility] Urobilinogen , Urine 0.2 0.2 - 1.0 mg/dL LAB URINALYSIS - AUTOMATED METHOD 01/13/2025 6:23 PM EDT [facility] Bilirubin, Urine Negative Negative LAB URINALYSIS - AUTOMATED METHOD 01/13/2025 6:23 PM EDT [facility] Blood, Urine Negative Negative LAB URINALYSIS - AUTOMATED METHOD 01/13/2025 6:23 PM T [facility] Urine Indwelling urinary catheter / Unknown Non-blood Collection / Unknown 01/13/2025 5:45 PM EDT 01/13/2025 6:14 PM EDT us Jessica Serrato DO LAB URINE ORDERABLES Final Re sult [facility] [address] [place] [address], * Dumont urine culture tube (01/13/2025 5:45 PM EDT) Extra Tube Hold for add-ons. 01/13/2025 8:01 PM EDT [facility] Comment:Auto resulted. Urine Indwelling urinary catheter / Unknown Non-blood Collection / Unknown 01/13/2025 5:45 PM EDT 01/13/2025 6:14 PM EDT us Jessica Serrato DO LAB URINE ORDERABLES Final Re sult [facility] [address] [place] [address], * (ABNORMAL) Manual differential (01/13/2025 5:45 PM EDT) Neutrophils % 63.0 % LAB HEMETOLOGY METHOD 01/13/2025 7:36 PM EDT [facility] Bands % 30.0 % LAB HEMETOLOGY METHOD 01/13/2025 7:36 PM EDT [facility] Lymphocytes % 8.0 % LAB HEMETOLOGY METHOD 01/13/2025 7:36 PM EDT [facility] Monocytes % 0.0 % LAB HEMETOLOGY METHOD 01/13/2025 7:36 PM EDT [facility] Eosinophils % 0.0 % LAB HEMETOLOGY METHOD 01/13/2025 7:36 PM EDT [facility] Basophils % 0.0 % LAB HEMETOLOGY METHOD 01/13/2025 7:36 PM EDT [facility] Neutrophils Absolute Manual 5.48 1.50 - 7.00 K/mcL LAB HEMETOLOGY METHOD 01/13/2025 7:36 PM EDT [facility] Bands Absolute Manual 2.61(H) 0.00 - 0.00 K/mcL LAB HEMETOLOGY METHOD 01/13/2025 7:36 PM EDT [facility] Lymphocytes Absolute 0.70(L) 1.00 - 5.00 K/mcL LAB HEMETOLOGY METHOD 01/13/2025 7:36 PM EDT [facility] Monocytes Absolute Manual 0.00(L) 0.20 - 1.00 K/mcL LAB HEMETOLOGY METHOD 01/13/2025 7:36 PM EDT [facility] Eosinophils Absolute Manual 0.00 0.00 - 0.50 K/mcL LAB HEMETOLOGY METHOD 01/13/2025 7:36 PM EDT [facility] Basophils Absolute Manual 0.00 0.00 - 0.20 K/mcL LAB HEMETOLOGY METHOD 01/13/2025 7:36 PM EDT [facility] Rbc Morphology Present( A) Consistent with indices, Normal for LAB HEMETOLOGY METHOD 01/13/2025 7:36 PM EDT [facility] Comment:RBC: Morphology agre es with CBC Platelet Morphology - WAM See Note(A) Normal LAB HEMETOLOGY METHOD 01/13/2025 7:36 PM EDT [facility] Comment:PLT: Large platelets seen Occasional plt clumps present. Toxic Granules Present Present( A) (none) LAB HEMETOLOGY METHOD 01/13/2025 7:36 PM EDT [facility] Vacuolated Neutrophils Present Present( A) (none) LAB HEMETOLOGY METHOD 01/13/2025 7:36 PM EDT [facility] Blood Venous blood specimen / Unknown Venipuncture / Unknown 01/13/2025 5:45 PM EDT 01/13/2025 6:13 PM EDT us Jessica Serrato DO LAB BLOOD ORDERABLES Final Re sult [facility] [address] [place] [address], * Respiratory virus panel molecular study (01/13/2025 5:33 PM EDT) Pathologist [facility] Adenovirus Detection by PCR Not Detected Not Detected LAB MICROBIOLOGY METHOD 01/13/2025 6:40 PM EDT [facility] Influenza A PCR Not Detected Not Detected LAB MICROBIOLOGY METHOD 01/13/2025 6:40 PM EDT [facility] Influenza B PCR Not Detected Not Detected LAB MICROBIOLOGY METHOD 01/13/2025 6:40 PM EDT [facility] Coronavirus 229E Not Detected Not Detected LAB MICROBIOLOGY METHOD 01/13/2025 6:40 PM EDT [facility] Coronavirus HKU1 Not Detected Not Detected LAB MICROBIOLOGY METHOD 01/13/2025 6:40 PM EDT [facility] Coronavirus OC43 Not Detected Not Detected LAB MICROBIOLOGY METHOD 01/13/2025 6:40 PM EDT [facility] Coronavirus NL63 Not Detected Not Detected LAB MICROBIOLOGY METHOD 01/13/2025 6:40 PM EDT [facility] Parainfluenza Virus 1 Not Detected Not Detected LAB MICROBIOLOGY METHOD 01/13/2025 6:40 PM EDT [facility] Parainfluenza Virus 2 Not Detected Not Detected LAB MICROBIOLOGY METHOD 01/13/2025 6:40 PM EDT [facility] Parainfluenza Virus 3 Not Detected Not Detected LAB MICROBIOLOGY METHOD 01/13/2025 6:40 PM EDT [facility] Parainfluenza Virus 4 Not Detected Not Detected LAB MICROBIOLOGY METHOD 01/13/2025 6:40 PM EDT [facility] RSV PCR Not Detected Not Detected LAB MICROBIOLOGY METHOD 01/13/2025 6:40 PM EDT [facility] Human Metapneumovirus A and B Not Detected Not Detected LAB MICROBIOLOGY METHOD 01/13/2025 6:40 PM EDT [facility] Rhinovirus/Entero virus Not Detected Not Detected LAB MICROBIOLOGY METHOD 01/13/2025 6:40 PM EDT [facility] Bordetella pertussis Not Detected Not Detected LAB MICROBIOLOGY METHOD 01/13/2025 6:40 PM EDT [facility] Bordetella parapertussis Not Detected Not Detected LAB MICROBIOLOGY METHOD 01/13/2025 6:40 PM EDT [facility] Mycoplasma pneumo by PCR Not Detected Not Detected LAB MICROBIOLOGY METHOD 01/13/2025 6:40 PM EDT [facility] Chlamydia pneumoniae Not Detected Not Detected LAB MICROBIOLOGY METHOD 01/13/2025 6:40 PM EDT [facility] SARS COV-2 Not Detected Not Detected LAB MICROBIOLOGY METHOD 01/13/2025 6:40 PM EDT [facility] Swab Both anterior nares / Unknown Non-blood Collection / Unknown 01/13/2025 5:33 PM EDT 01/13/2025 5:47 PM EDT Narrative [facility] - 01/13/2025 6:40 PM EDT Testing was performed using the [employer] Respiratory Pathogen PCR Assay. All results must be correlated with the clinical findings. Results should not be used as the sole basis for diagnosis. False Negative results may occur from the presence of sequence variants in the region targeted by the assay or the presence of inhibitors. Results may be affected by concurrent antiviral/antimicrobial therapy or levels of organisms that are below the limit of detection. Jessica Serrato DO LAB MICROBIOLOGY - GENERAL OR DERABLES Final Result [facility] [address] [place] [address], * Blood Culture, Peripheral #2 (01/13/2025 5:15 PM EDT) Only the most recent of2 resultswithin the time period is included. Culture, Blood No growth at 5 days 01/18/2025 6:01 PM EDT [facility] Blood Venous blood specimen / Unknown Venipuncture / Unknown 01/13/2025 5:15 PM EDT 01/13/2025 5:47 PM EDT us Jessica Serrato DO LAB MICROBIOLOGY - GENERAL OR DERABLES Final Result [facility] [address] [place] [address], [place] [phone] * CT Abdomen Pelvis w Contrast (01/13/2025 4:25 PM EDT) Anatomical Region Laterality Modality Body Computed Tomogra phy 01/13/2025 4:55 PM EDT Impressions 01/13/2025 5:00 PM EDT 1. No acute abnormality in the abdomen or pelvis. 2. Smooth interlobular septal thickening. Thickening of the airways with small right pleural effusion suggestive of pulmonary vascular congestion. -------- FINAL REPORT -------- Dictated By: Eamon Angel Dictated Date: 01/13/2025 16:55 ET Assigned Physician: Eamon Angel Reviewed and Electronically Signed By: Eamon Angel Signed Date: 01/13/2025 17:00 ET Workstation ID: [id number] Transcribed By: Self Edit Transcribed Date: 01/13/2025 16:55 ET Narrative 01/13/2025 5:00 PM EDT PROCEDURE: CT ABDOMEN/PELVIS WITH CONTRAST INDICATION: r/o obstruction TECHNIQUE: CT of the abdomen and pelvis following the intravenous administration of 90cc Isovue 370. Multiplanar reformats. The examination was performed utilizing dose reduction techniques. Total DLP 1201 COMPARISON: No priors available. FINDINGS: LOWER THORAX: Smooth interlobular septal thickening. Thickening of the airways with small right pleural effusion suggestive of pulmonary vascular congestion. HEPATOBILIARY: No focal liver lesions. Cholecystectomy. SPLEEN: No focal lesion. PANCREAS: No focal mass or ductal dilatation. ADRENALS: No nodules. KIDNEYS/URETERS: No hydronephrosis, stones, or solid mass. PELVIC ORGANS/BLADDER: Circumferential thickening of the bladder presumably related to underdistention. PERITONEUM / RETROPERITONEUM: No ascites or free air. No retroperitoneal lymphadenopathy. VESSELS: Scattered atherosclerotic calcifications throughout the aorta and its major branches. No aneurysm. GI TRACT: Small hiatal hernia. No small bowel obstruction. Prominent stool burden within the cecum. Normal caliber appendix. Few scattered diverticuli without superimposed acute inflammatory change. BONES AND SOFT TISSUES: Mild degenerative changes with anterolisthesis L4 and L5. Soft tissues are unremarkable. Procedure Note Eamon Angel MD - 01/13/2025 PROCEDURE: CT ABDOMEN/PELVIS WITH CONTRAST INDICATION: r/o obstruction TECHNIQUE: CT of the abdomen and pelvis following the intravenousadministration of 90cc Isovue 370. Multiplanar reformats. The examinationwas performed utilizing dose reduction techniques. Total DLP 1201 COMPARISON: No priors available. FINDINGS: LOWER THORAX: Smooth interlobular septal thickening. Thickening of theairways with small right pleural effusion suggestive of pulmonary vascularcongestion. HEPATOBILIARY: No focal liver lesions. Cholecystectomy. SPLEEN: No focal lesion. PANCREAS: No focal mass or ductal dilatation. ADRENALS: No nodules. KIDNEYS/URETERS: No hydronephrosis, stones, or solid mass. PELVIC ORGANS/BLADDER: Circumferential thickening of the bladderpresumably related to underdistention. PERITONEUM / RETROPERITONEUM: No ascites or free air. No retroperitoneallymphadenopathy. VESSELS: Scattered atherosclerotic calcifications throughout the aorta andits major branches. No aneurysm. GI TRACT: Small hiatal hernia. No small bowel obstruction. Prominentstool burden within the cecum. Normal caliber appendix. Few scattereddiverticuli without superimposed acute inflammatory change. BONES AND SOFT TISSUES: Mild degenerative changes with anterolisthesis L4and L5. Soft tissues are unremarkable. IMPRESSION: 1. No acute abnormality in the abdomen or pelvis. 2. Smooth interlobular septal thickening. Thickening of the airways withsmall right pleural effusion suggestive of pulmonary vascularcongestion. -------- FINAL REPORT -------- Dictated By: Eamon Angel Dictated Date: 01/13/2025 16:55 ET Assigned Physician: Eamon Angel Reviewed and Electronically Signed By: Eamon Angel Signed Date: 01/13/2025 17:00 ET Workstation ID: [id number] Transcribed By: Self Edit Transcribed Date: 01/13/2025 16:55 ET us Jessica Serrato DO IM CT PROCEDURES Final Resul t * Troponin I High Sensitivity (01/13/2025 4:03 PM EDT) High Sensitivity Troponin I 6 <=54 ng/L LAB CHEMISTRY METHOD 01/13/2025 4:43 PM EDT [facility] Blood Venous blood specimen / Unknown Venipuncture / Unknown 01/13/2025 4:03 PM EDT 01/13/2025 4:13 PM EDT Narrative [facility] - 01/13/2025 4:43 PM EDT High levels of biotin in samples may falsely decrease hsTroponin values. Use caution when interpreting hsTroponin results in patients taking biotin who exhibit renal impairment (eGFR <60) or in patients taking more than 20 mg/day of biotin. Jessica Serrato DO LAB BLOOD ORDERABLES Final Re sult Performing Organization Address City/[facility]/ZIP Co de Phone Number [facility] [address] [place] [address], * Vitamin B12 and folate (01/13/2025 4:03 PM EDT) [facility] Vitamin B-12 359 250 - 900 pcg/mL LAB CHEMISTRY METHOD 01/13/2025 9:29 PM EDT [facility] Folate 14.0 2.8 - 17.0 ng/ml LAB CHEMISTRY METHOD 01/13/2025 9:29 PM EDT [facility] Blood Venous blood specimen / Unknown Venipuncture / Unknown 01/13/2025 4:03 PM EDT 01/13/2025 4:13 PM EDT Mj Mart MD LAB BLOOD ORDERABLES Final Result [facility] [address] [place] [address], [place] [phone] * (ABNORMAL) Procalcitonin (01/13/2025 4:03 PM EDT) [facility] Procalcitonin 1.21(H) <=0.16 ng/mL LAB CHEMISTRY METHOD 01/14/2025 9:26 AM EDT [facility] Blood Venous blood specimen / Unknown Venipuncture / Unknown 01/13/2025 4:03 PM EDT 01/13/2025 4:13 PM EDT Narrative [facility] - 01/14/2025 9:26 AM EDT Procalcitonin > 2.00 ng/ml: Procalcitonin Levels above 2.00 ng/ml, on the first day of ICU admission represent a high risk for progression to severe sepsis and/or septic shock. Procalcitonin < 0.50 ng/ml: Procalcitonin levels below 0.50 ng/ml on the first day of ICU admission represent a low risk for progression to severe sepsis and/or septic shock. Concentrations <0.5 ng/mL do not exclude an infection, on account of local ized infections (without systemic signs) which can be associated with such low concentrations, or a systemic infection in its initial stages (<6 hours). Furthermore, increased procalcitonin can occur without infection. PCT concentrations between 0.5 and 2.0 ng/mL should be interpreted taking into account the patient's history. It is recommended to retest PCT within 6-24 hours if any concentrations <2.0 ng/mL are obtained. Mj Mart MD LAB BLOOD ORDERABLES Final Result [facility] [address] [place] [address], * APTT (01/13/2025 4:03 PM EDT) aPTT 25.1 24.1 - 39.3 sec LAB COAGULATION METHOD 01/13/2025 4:24 PM EDT [facility] Blood Venous blood specimen / Unknown Venipuncture / Unknown 01/13/2025 4:03 PM EDT 01/13/2025 4:13 PM EDT [facility] BLOOD ORDERABLES Final Re sult Performing Organization Address [facility]/ZIP Co de Phone Number [facility] [address] [place] [address], [place] [phone] * Protime-INR (01/13/2025 4:03 PM EDT) Pathologist [facility] Protime 12.8 10.6 - 13.9 sec LAB COAGULATION METHOD 01/13/2025 4:24 PM EDT [facility] INR 1.0 LAB COAGULATION METHOD 01/13/2025 4:24 PM EDT [facility] Blood Venous blood specimen / Unknown Venipuncture / Unknown 01/13/2025 4:03 PM EDT 01/13/2025 4:13 PM EDT [facility] BLOOD ORDERABLES Final Re sult Performing Organization Address [facility]/ZIP Co de Phone Number [facility] [address] [place] [address], [place] [phone] * Type and Screen (01/13/2025 4:03 PM EDT) [facility] ABO Group A 01/13/2025 5:00 PM EDT [facility] Rh Type Positive 01/13/2025 5:00 PM EDT [facility] Antibody Screen Negative 01/13/2025 5:00 PM EDT [facility] Blood Venous blood specimen / Unknown Venipuncture / Unknown 01/13/2025 4:03 PM EDT 01/13/2025 4:13 PM EDT [facility] BLOOD BANK TEST ORDERABLE S Final Result Performing Organization Address City/[facility]/ZIP Co de Phone Number [facility] [address] [place] [address], [place] [phone] * C-reactive protein (01/13/2025 4:03 PM EDT) C-Reactive Protein <0.29 <=0.50 mg/dL LAB CHEMISTRY METHOD 01/13/2025 9:19 PM EDT [facility] Blood Venous blood specimen / Unknown Venipuncture / Unknown 01/13/2025 4:03 PM EDT 01/13/2025 4:13 PM EDT Mj Mart MD LAB BLOOD ORDERABLES Final Result Performing Organization Address City/[facility]/ZIP Co de Phone Number [facility] [address] [place] [address], [place] [phone] * Thyroid Stimulating Hormone (TSH) (01/13/2025 4:03 PM EDT) Pathologist [facility] TSH 0.60 0.40 - 4.00 mcIU/mL LAB CHEMISTRY METHOD 01/13/2025 5:34 PM EDT [facility] Blood Venous blood specimen / Unknown Venipuncture / Unknown 01/13/2025 4:03 PM EDT 01/13/2025 4:13 PM EDT Jessica Serrato DO LAB BLOOD ORDERABLES Final Re sult [facility] [address] [place] [address], [place] [phone] * (ABNORMAL) Thyroxine free (01/13/2025 4:03 PM EDT) Free T4 2.09(H) 0.70 - 1.80 ng/dL LAB CHEMISTRY METHOD 01/13/2025 9:51 PM EDT [facility] Blood Venous blood specimen / Unknown Venipuncture / Unknown 01/13/2025 4:03 PM EDT 01/13/2025 4:13 PM EDT Mj Mart MD LAB BLOOD ORDERABLES Final Result [facility] [address] [place] [address], [place] [phone] * Ammonia (01/13/2025 4:03 PM EDT) [facility] Ammonia 16 11 - 35 mcmol/L LAB CHEMISTRY METHOD 01/13/2025 4:38 PM EDT [facility] Blood Venous blood specimen / Unknown Venipuncture / Unknown 01/13/2025 4:03 PM EDT 01/13/2025 4:14 PM EDT Jessica Serrato DO LAB BLOOD ORDERABLES Final Re sult Performing Organization Address [facility]/ZIP Co de Phone Number [facility] [address] [place] [address], [place] [phone] * (ABNORMAL) Hepatic Function Panel (01/13/2025 4:03 PM EDT) [facility] Total Protein 5.2(L) 6.0 - 8.0 g/dL LAB CHEMISTRY METHOD 01/13/2025 4:41 PM EDT [facility] Albumin 2.8(L) 3.2 - 5.0 g/dL LAB CHEMISTRY METHOD 01/13/2025 4:41 PM EDT [facility] Total Bilirubin 1.2 0.0 - 1.4 mg/dL LAB CHEMISTRY METHOD 01/13/2025 4:41 PM EDT [facility] Bilirubin, Direct 0.3 0.0 - 0.3 mg/dL LAB CHEMISTRY METHOD 01/13/2025 4:41 PM EDT [facility] Bilirubin, Indirect 0.9 0.0 - 1.1 mg/dL LAB CHEMISTRY METHOD 01/13/2025 4:41 PM EDT [facility] ALT (SGPT) 28 10 - 60 unit/L LAB CHEMISTRY METHOD 01/13/2025 4:41 PM EDT [facility] AST (SGOT) 27 10 - 42 unit/L LAB CHEMISTRY METHOD 01/13/2025 4:41 PM EDT [facility] Alkaline Phosphatase 80 42 - 121 unit/L LAB CHEMISTRY METHOD 01/13/2025 4:41 PM EDT [facility] Blood Venous blood specimen / Unknown Venipuncture / Unknown 01/13/2025 4:03 PM EDT 01/13/2025 4:13 PM EDT us Jessica Serrato DO LAB BLOOD ORDERABLES Final Re sult [facility] [address] [place] [address], [place] [phone] * XR Chest 1 View (01/13/2025 3:48 PM EDT) Anatomical Region Laterality Modality Body Radiographic Rosanna ging 01/13/2025 3:57 PM EDT Impressions 01/13/2025 4:05 PM EDT FINDINGS/IMPRESSION: Patchy opacities in the right lower lung zone suspicious for pneumonia. No pleural effusion or pneumothorax. Cardiac silhouette is normal in size. Degenerative changes seen throughout the bones. -------- FINAL REPORT -------- Dictated By: CELESTINO BORDEN Dictated Date: 01/13/2025 15:57 ET Assigned Physician: CELESTINO BORDEN Reviewed and Electronically Signed By: CELESTINO BORDEN Signed Date: 01/13/2025 16:05 ET Workstation ID: [id number] Transcribed By: Self Edit Transcribed Date: 01/13/2025 15:57 ET Narrative 01/13/2025 4:05 PM EDT XR CHEST 1 VIEW INDICATION: Shortness of breath, pain TECHNIQUE: XR CHEST 1 VIEW COMPARISON: 02/20/2024. Procedure Note Celestino Borden MD - 01/13/2025 XR CHEST 1 VIEW INDICATION: Shortness of breath, pain TECHNIQUE: XR CHEST 1 VIEW COMPARISON: 02/20/2024. IMPRESSION: FINDINGS/IMPRESSION: Patchy opacities in the right lower lung zonesuspicious for pneumonia. No pleural effusion or pneumothorax. Cardiacsilhouette is normal in size. Degenerative changes seen throughout thebones. -------- FINAL REPORT -------- Dictated By: CELESTINO BORDEN Dictated Date: 01/13/2025 15:57 ET Assigned Physician: CELESTINO BORDEN Reviewed and Electronically Signed By: CELESTINO BORDEN Signed Date: 01/13/2025 16:05 ET Workstation ID: [id number] Transcribed By: Self Edit Transcribed Date: 01/13/2025 15:57 ET Jessica Serrato DO IMG XR PROCEDURES Final Resul t * 12-Lead ECG (01/13/2025 3:38 PM EDT) Ventricular Rate ECG 67 BPM GEMUSE Atrial Rate 67 BPM GEMUSE P-R Interval 170 ms GEMUSE QRS Duration 80 ms GEMUSE Q-T Interval 434 ms GEMUSE QTc 458 ms GEMUSE P Wave [place] 95 degrees GEMUSE R [place] 3 degrees GEMUSE T [place] 50 degrees GEMUSE ECG Interpretation Normal sinus rhythm Normal ECG When compared with ECG of 20-FEB-2024 22:54, T wave inversion no longer evident in Inferior leads Confirmed by Naeem MEI JOHN ([id number]) on 01/14/2025 11:45:25 AM GEMUSE 01/13/2025 3:38 PM EDT 01/14/2025 11:45 AM EDT Jessica Serrato DO ECG ORDERABLES Final Result GEMUSE * (ABNORMAL) POCT Glucose, blood (01/13/2025 3:32 PM EDT) Glucose POCT 105(H) 70 - 100 mg/dL 01/13/2025 3:55 PM EDT [facility] Blood Capillary blood specimen / Unknown 01/13/2025 3:32 PM EDT 01/13/2025 3:57 PM EDT Jessica Serrato DO LAB POINT OF CARE TE ST DOCKED DEVICE UNSOLICITED RESULTS Final Result [facility] [place] ([facility]) [facility] [address] [place] [address], * (ABNORMAL) Lipid panel with cholesterol and HDL ratio (08/22/2024 2:02 PM EDT) Pathologist [facility] Cholesterol Total 206(H) 100 - 199 mg/dL [facility] 1 Triglycerides 105 0 - 149 mg/dL [facility] 1 HDL Cholesterol 72 >39 mg/dL [facility] 1 VLDL Cholesterol Calculated 18 5 - 40 mg/dL [facility] 1 LDL Chol Calc (NIH) 116(H) 0 - 99 mg/dL [facility] 1 Chol/HDL Ratio 2.9 0.0 - 4.4 ratio [facility] 1 Comment: T. Chol/HDL Ratio Men Women 1/2 Avg.Risk 3.4 3.3 Avg.Risk 5.0 4.4 2X Avg.Risk 9.6 7.1 3X Avg.Risk 23.4 11.0 08/22/2024 2:02 PM EDT 08/22/2024 Narrative [facility] 1 - 08/23/2024 6:07 PM EDT Performed at: 01 - [facility] [address] [id number] Furnace Reliner: Toshia Larson MD, Phone: [phone] us Bautista Mei MD LAB BLOOD ORDERABLES Final Res ult [facility] 1 from Last 3 Months or Most Recently Relevant to Health Maintenance Insurance [facility] Advance Directives * Full Code - Confirmed (Latest Code Status on File) Date Activated Date Inactivated Comments 01/13/2025 11:26 PM 01/15/2025 3:42 PM This code status was ascertained in the following way: Code status discussion: discussion with patient To update the patient's code status, place a code status order. Do not modify or discontinue any currently active code status orders. * Full Code - Default Date Activated Date Inactivated Comments 01/13/2025 9:19 PM 01/13/2025 11:26 PM This is o rder is used when code status has not been discussed with the patient, or code status is otherwise unknown/unconfirmed To update the patient's code status, place a code status order. Do not modify or discontinue any currently active code status orders. Care Teams Validation Software Facilitator Relationship Specialty Start Date End Date Meliton Cho PA [address] [place] [address] PCP - General 03/10/23
--- OUTSIDE RECORDS SUMMARY | 2025-01-26 13:21 | XMS_ITS | Encounter Summary ---
Author Organization [facility] Address [address] [place] [address] Care Team Providers Care Production Lapping Machine Operator Name Role Phone Meliton Cho Primary Care Provider + Reason for Visit * Reason Onset Date Comments Medication 01/25/2025 Encounter Details Date Type Department Care Team (Late st Contact Info) Description 01/25/2025 Telephone [facility] [address] [facility] [address] [place] [phone] Mj Dale MD [address] [facility] [address] [place] [address] Social History Tobacco Use Types Packs/Day Years [...] care for your loved ones. For example, exceptional children teacher or elderly care for an older adult? [...] EDT Travel History Travel Start Travel End [facility] 12/14/2024 01/02/2025 documented as of this encounter Functional Status * Are you deaf or do you have serious difficulty hearing? Answer Date of Assessment Author No 01/13/2025 4:49 PM EDT Antelmo Anguinao RN * Are you blind or do you have serious difficulty seeing, even when wearing glasses? Answer Date of Assessment Author No 01/13/2025 4:49 PM EDT Antelmo Anguiano RN * Do you have serious difficulty walking or climbing stairs? Answer Date of Assessment Author Yes 01/13/2025 4:49 PM EDT Antelmo Anguiano RN * Do you have serious difficulty dressing or bathing? Answer Date of Assessment Author Yes 01/13/2025 4:49 PM EDT Antelmo Anguiano RN * Because of a physical, mental, or emotional condition, do you have serious difficulty doing errandsalone such as visiting the doctor? Answer Date of Assessment Author Yes 01/13/2025 4:49 PM EDT Antelmo Anguiano RN documented as of this encounter Mental Status * Because of a physical, mental, or emotional condition, do you have serious difficulty concentrating, remembering, or making decisions? (5 years old or older) Answer Entry Date Author Yes 01/13/2025 4:49 PM EDT Antelmo Anguiano RN documented in this encounter Progress Notes * Adrienne Mckeon RN - 01/25/2025 4:45 PM EDT HX of prolonged QTC. Amitriptyline can cause a dose-dependent prolongation of the corrected QT (QTc) interval. Please advise further. * Christie Ocampo - 01/25/2025 4:32 PM EDT Patient called and stated that she was prescribed Amitriptyline by her ceramic designer. She saysthat she has prolonged QT, and she would like to know if it would be okay to take this medication, or if she should ask for something else. Patient would like a call back at [phone]. documented in this encounter Plan of Treatment Upcoming Encounters Date Type Department Care Team (Late st Contact Info) Description 03/12/2025 1:45 PM EST Office Visit Orthopedic Surgery [place] [address] [phone] Mj Jerez, DPMichael [address] [phone] documented as of this encounter Visit Diagnoses Not on filedocumented in this encounter Care Teams Production Lapping Machine Operator Relationship Specialty Start Date End Date Meliton Cho PA [address] [place] [address] PCP - General 03/10/23 documented as of this encounter
--- OUTSIDE RECORDS SUMMARY | 2025-01-26 13:21 | XMS_ITS ---
Continuity of Care Document (CCD) Created on: January 26, 2025 Delmis Malone External Reference #: [id number] : 1960 Sex: Female Author Organization [facility] Address [address] [place] [address] Phone [phone] Problems Active Problems Provider Date Essential hypertension Dennis Elliott M.D. O nset: 11/28/2024 Hypercholesterolemia Dennis Elliott M.D. Ons et: 11/28/2024 Social History Type Date Description Comments Sex Female Sex Unknown Allergies and adverse reactions Active Allergies Criticality Reaction Severity Comments Date Morphine Unable to assess criticality Palpitations 11/28/2024 Medications Active Medications SIG Qnty Indications Order ing Provider Date [id number] Tablets take 1 tablet by mouth 5 1/2 per week Dennis Elliott M.D. 01/07/2022 Lorazepam0.5mg Tablets Take 1 Tablet By Mouth Twice Daily as Needed For Anxiety Unknown Propranolol HCL TA812ap Caps ER 24HR 1 tab by mouth every day Unknown Lreqkjpaxle85jk Tablets 1 tab by mouth every night 90tabs Unknown Maxalt-PWA16zg Tablets Dispers Dissolve 1 Tablet On The Tongue Daily as Needed For Migraine Headache. August Repea Unknown Izclgtp91fwz/Act Aerosol Inhale 1 puff By Mouth Twice Daily Nathan Pantoja Levalbuterol HCL1.25mg/3ML Nebulizer Use A Vial Via Nebulizer Twice Daily Nathan Pantoja Neliqgamjpk4ii Tablets Take 1 Tablet By Mouth AT Bedtime Nathan Pantoja Cetirizine CBB87dd Tablets Take 2 Tablets By Mouth Daily Giuseppe Landeros Betamethasone Dipropionate0.05% Cream Giuseppe Landeros Vital Signs Date Vital Result Comment 11/28/2024 3:34pm BP Systolic 140 mmHg BP Diastolic 80 mmHg Heart Rate 72 /min Height 66 inches 5'6 Weight 158.25 lb BMI (Body Mass Index) 25.5 kg/m2 Results Test Acquired Date Facility Test Result H/L Range N ote TSH 11/24/2024 [facility] TSH 0.742 uIU/mL 0.450-4.500 TSH 10/05/2024 [facility] TSH 6.360 uIU/mL High 0.450-4.500 TSH 08/22/2024 [facility] TSH 6.350 uIU/mL High 0.450-4.500 TSH 03/20/2024 [facility] TSH 0.504 uIU/mL 0.450-4.500 TSH 01/25/2024 [facility] TSH 4.900 uIU/mL High 0.450-4.500 TSH 09/06/2023 [facility] TSH 1.150 uIU/mL 0.450-4.500 1 TSH 05/04/2023 [facility] TSH 2.06 uIU/mL (0.4-4.2) TSH 12/03/2022 [facility] TSH 1.22 uIU/mL (0.4-4.2) TSH 09/30/2022 [facility] TSH 2.74 uIU/mL (0.4-4.2) TSH 07/28/2022 [facility] TSH 1.82 uIU/mL (0.4-4.2) TSH 04/14/2022 [facility] TSH 3.74 uIU/mL (0.4-4.2) TSH 03/24/2022 [facility] TSH 6.53 uIU/mL High (0.4-4.2) TSH 02/18/2022 [facility] TSH <pending> TSH 02/18/2022 [facility] TSH <pending> TSH 12/29/2021 [facility] TSH 0.30 uIU/mL Low (0.4-4.2) 1 A courtesy copy of t his report has been sent to the patient Medical Devices Description No Information Available Encounters Type Date Location Provider Dx Diagnosis Office Visit 11/28/2024 3:30p Main Office Dennis Elliott M.D. E03.9 Hypothyroidism, unspecified Assessments Date Code Description Provider 11/28/2024 E03.9 Hypothyroidism, unspecified Dennis Elliott M.D. Plan of Treatment Future Appointment(s):* 12/04/2025 2:15 pm - Dennis Elliott M.D. at Main Office 11/28/2024 - Dennis Elliott M.D.* E03.9 Hypothyroidism, unspecified Functional Status Description No Information Available Mental Status Description No Information Available Referrals Description No Information Available
== END 2025-01-26 11:58 | disposition home or self-care (01) ==
LOC: HO.HPS 11:05
PROVIDERS: PCP Internal Medicine; Visit Provider Hospitalist
DX: J15.69 Pneumonia due to other Gram-negative bacteria (principal); G47.33 Obstructive sleep apnea (adult) (pediatric); Z99.89 Dependence on other enabling machines and devices; J45.40 Moderate persistent asthma, uncomplicated; R94.2 Abnormal results of pulmonary function studies; R91.8 Other nonspecific abnormal finding of lung field; F51.01 Primary insomnia; J31.0 Chronic rhinitis
CPT/HCPCS: 99214; G2211

== ENCOUNTER → 2025-01-26 12:24 | Outpatient (BNV) | payer OTHER, SELFPAY | PROVIDERS: PCP Internal Medicine; Visit Provider Radiology Diagnostic Ultrasound | DX: J18.9 Pneumonia, unspecified organism (principal) | CPT/HCPCS: 71046 ==

== ENCOUNTER 2025-02-15 14:29 | Outpatient (AMB) | payer OTHER, SELFPAY ==
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
--- OUTSIDE RECORDS SUMMARY | 2025-02-10 23:59 | XMS_ITS | Continuity of Care Document ---
Author Organization [facility] Address [address] [place] [address]- Care Team Providers Care Bakery And Deli Sales Manager Name Role Phone Meliton Ortiz Primary Care Physician Encounter [facility] Date(s): 01/11/25 - 02/10/25 [facility] [address] [place] [address]- Encounter Type: Triage Allergies, Adverse Reactions, Alerts [...] [01/03/2015] Given at [facility] on 1-5 [facility] 2Result Comment: LOT [id number] 3Result Comment: LOT [id number] 4Admin Note: HEP a #2 Medications albuterol [...] 3:49:00 PM EDT, Route to Pharmacy Electronically, [facility] #[id number], Partial fillupon patient request if the prescription [...] Refills, Soft Stop, 01/16/25 11:34:00 AM EDT, [facility] #[id number], 165, cm, 01/08/25 10:49:00 EDT, Height, 72.3, [...] Total Allowed Fills: 1 Fills Dispensed: 0 Maxalt-ANESTHESIOLOGY MEDICAL DOCTOR 10 mg oral tablet, disintegrating 1 tablet, By Mouth, Daily, PRN NEEDED FOR MIGRAINE HEADACHE, MAY REPEAT IN 2 HOURS NEEDED, # 12 tablet, 1 Refills, Maintenance, 01/18/25 10:11:00 AM EDT, [facility] #[id number], 165, cm, 01/08/25 10:49:00 EDT, Height, 72.3, [...] 1 Refills, Maintenance, 10/26/24 10:02:00 AM EDT, [id number], 161, cm, 10/24/24 15:49:00 EDT, Height, 67.1, [...] Care Team Personnel Name: Meliton Ortiz Position: [facility] PCO Associate Professional Member Role: PCP Address: [address] [place] [address] [place] [address]- Telecom: Name: Richar VANG, Emanuel Oliveira Position: [facility] PEDICURIST Member Role: [employer] PEDICURIST Physician Address: [address] [place] [address] Women's Health Explosives [place] [address]- Telecom: Care Team Related Persons Name: CECY ZEPEDA Name: ANURAG ZEPEDA Name: MABLE ZEPEDA Insurance Providers Guarantor name: PACO ZEPEDA Health Plan Information #: 1 Payer: [facility] Payer Identifier: ELISE Member Number: [id number] Group Number: [id number] Subscriber Identifier: ELISE Relationship to Subscriber: self Coverage Type: NA Coverage Verification Date: NA Telecom: NA Address:
[2025-02-15 14:33] VITALS: BP 116/70; PULSE 68; O2SAT 96; BMI 25.6
--- NOTE | 2025-02-15 14:33 | A.OFFVIS_ITS ---
Vital Signs 02/15/25 14:33 Height 5 ft 6 in Weight 158 lb 11.725 oz BMI 25.6 BP 116/70 Blood Pressure Location Lt brachial Position Sitting Pulse 68 Pulse Source Pulse Oximeter Pulse Oximetry (%) 96 Oxygen Delivery Method Room Air Intake Visit Reasons: Cough/SOB/Wheezing Licensed Practical Nurse Required: No Accompanied by: Self / Same As Patient Allergies morphine Allergy (Severe, Verified 02/15/25 14:36) Heart Palpitations azithromycin Adverse Reaction (Verified 02/15/25 14:36) prolonged QT HPI Comments Details: The patient is a 64-year-old woman known asthma addition to obstructive sleep apnea with severe migraines. Patient also has insomnia. She has been using her CPAP. The CPAP therapy has been very effective beneficial. They do help her migraines and also decrease her cardiovascular risks. If however, is hard for her to tolerate the mask because it irritates her face. We talked about using liners. She will considered doing so. The meantime the Miriam view mask is most comfortable mask for her. She cannot use a nasal mask because she opens her mouth. She also uses a mouth guard for significant grinding of her teeth. The patient will continue using the Miriam view mask at this time. However, her machine does not appear to be as effective anymore. His more than 5 years old. The CPAP pressures done appeared to be as effective for her. At this point I will request a new CPAP machine to be able to provide more autonomic pressure changes more responsive to her obstruction in addition to being able to adequately get information from her machine to adjust her machine accordingly. I will send a new replacement CPAP prescription to [facility], her [employer] company. She con tinues using her inhalers. She did have an x-ray during the last visit at some point at [facility] which demonstrated increased cardiac size. She is concerned about this. I have reassured her that is likely just with the x-ray appearance is but it does not have to be that her heart is actually big. Will repeat the x-ray at this time. If her x-ray still shows increased cardiac silhouette may be due in e chocardiogram will be more helpful. 02/23/2023 the patient is here for a pulmonary follow-up visit. She was recently evaluated [facility] which she was having some substernal chest the ER she did undergo a CTA. We did have the report. Demonstrated some small airways disease due to some mosaic pattern. But otherwise no other acute illness noted. The patient was treated for costochondritis and she was discharged home. Cardiac studies were all normal. She still has some costochondral joint discomfort but much improved. The patient also has been having some increasing coughing primarily because of the which stopping the basement. Will go ahead and maximize her respiratory therapy. She has a hard time tolerating beta agonist therapy. The patient also has been using her CPAP. The CPAP therapy continues to be affecting beneficial. She does not sleep more than 3-4 hours a night so therefore she does use it every night but uses it effective for the amount of sleep that she has. Based on the fact that she only sleeps about 3 for hours a night her use age is closer to 80%. The CPAP therapy continues to be affecting beneficial. 08/03/2023 the patient is here for a pulmonary follow-up visit. Overall the doing well. No further episodes of chest pain which is reassuring. Still anxious at times. She does take the lorazepam at nighttime. She has been dealing with a lot of stress because of her 's health. In meantime she still struggles with sleep. She still sleeps minimal hours between 3-4 hours a night. After that she wakes up and she stays active. The patient does use her CPAP at nighttime CPAP therapy continues to be affecting beneficial. She does use it more than 90% of the time while she is sleeping. But since her sleep cycles so short it does not meet the criteria that we have on the overall population. She does have another machine. She does swab rooms and she uses her own machine when she sleeps in a different room. When she does that the machine is not recorded to the clot is recording to the card. She did bring that in and confirms the fact that she has been using the machine every night to sleep with. Respiratory pinto she is doing okay. Sleep she sometimes still uses the Lunesta as needed. Although she does feel irritable after using it she tries to avoid. We did again looked a report from her CTA. No additional imaging warranted. 02/08/2024 the patient is here for a pulmonary follow-up visit. She is doing well from a respiratory status. She continues uses CPAP every night. More than 4 hours a night when she can. Although she does not sleep a lot. Now that she is dealing with her 's sickly cancer diagnosis is very hard for her to get adequate sleep. The patient continues use respiratory medications with good effect. She did develop a cough. She was exposed to sick contact when grandson came over he was then diagnosed with pneumonia. I gave her a prescription of doxycycline that she can start if her cough gets worse. Otherwise the patient follow-up in 6 months. 08/11/2024 the patient is here for pulmonary follow-up visit. The patient overall has been doing very well. She has been taking care of her sick who has required a lot of effort and energy but finally he is feeling better. Unfortunately she did have a fall and she fractured her wrist requiring surgery. She is recovering well from that. In the meantime she is sleeping better at nighttime. She is using CPAP in the CPAP therapy continues to be affecting beneficial. Her AHI is well below 1 and her pressures are adequate. Her mask is also comfortable. From a respiratory status she does have the Alvesco that she uses on a regular basis with good adherence and has not required her rescue inhaler. She has not required any prednisone which is reassuring. The patient does not take any vaccines so we will defer any discussion about vaccines at this time. The patient will follow-up in a year's time if she has any issues prior to that she will call for an earlier assessment. 01/26/2025 the patient is here for hospital follow-up visit. Apparently the patient was not usual state health when she woke up dizzy and unwell. She was sick enough that she wanted to go to the hospital so therefore an ambulance was called. When she went to the hospital she was noted to have bilateral pneumonia with evidence of early sepsis. She was given fluids and she was given IV antibiotics. The patient also was placed on steroids. Her CT scan again demonstrated bilateral airspace disease. She was vaccinated because she was concerned about previous allergic reactions to vaccines. But she understands that she is going to get a pneumonia shot whenever she is completely better. Overall she is doing okay although feels tired and dizzy. Will go ahead and check x-ray and blood work today. She also complains of spasmodic area in the right diaphragmatic area. Will recheck his magnesium. She may benefit from a small dose of magnesium to try to help with spasms. Otherwise the patient is doing okay she is recovering well and will follow-up in 3-4 months. If she has any issues prior to this she can always call for an earlier assessment. In the meantime she does continue to use her CPAP. The CPAP therapy has been affecting beneficial she does use it for more than 4 hours a night. 02/15/2025 the patient is here for sick visit. She started developing chest tightness shortness of breath for the last few days. She also complained of cough although nonproductive in nature. She is concerned because she did have significant pneumonia recently when she was hospitalized at [facility]. So she has traumatize she does not want to get sick again. The patient has been using her nebulizer although she notices that the nebulizer is not producing enough mist. He may not be working effectively. We are going to try new tubing for it. In the meantime she is going to start Medrol Scott and see if this provides some relief and if she worsens with cough and congestion I did give her some doxycycline. Right now her exam is pretty benign without any significant wheezing just a prolonged expiratory phase. Therefore no reasons for any imaging studies at this time. Her spasms and cramping is actually improved that is well and she is actually feeling little better from the standpoint. Oth erwise the patient is doing okay will follow-up sometime in 3-4 months if she has any issues she can always call for further recommendations. [facility] Medical History (Updated 02/15/25 @ 21:51 by Nathan Pantoja MD) Pneumonia Dysphagia Head and neck cancer Insomnia Dyspnea Abnormal diffusion capacity determined by pulmonary function test Fatigue Chronic rhinitis ODETTE on CPAP Asthma Family History Father No problems noted. Social History Patient Tobacco Use Status: Former Tobacco user Tobacco use type: Cigarette Years Smoked: 15 years Review of Systems Const Reports chills, Denies fatigue, Denies fever(s), Denies weight gain and Denies weight loss ENT Denies dizziness, Denies lip swelling and Denies tongue swelling Card Denies chest pain, Denies leg edema, Denies lightheadedness, Denies palpitations, Reports dyspnea on exertion, Denies orthopnea and Denies other Resp Reports cough, Reports dyspnea on exertion and Reports wheezing GI Denies hematochezia and Denies change in stool character Musc Reports as per HPI, Denies abnormal gait, Reports myalgias, Reports arthralgias and Denies tingling Neuro Denies abnormal gait, Denies dizziness and Denies tingling Psych Denies no additional complaints and Reports difficulty concentrating Endo Denies fatigue and Denies palpitations Vic/Lymph Denies easy bleeding and Denies lymphadenopathy Aller/Immun Denies lip swelling, Denies tongue swelling and Reports wheezing Physical Exam Vital Signs: Last Vital Signs Pulse 68 02/15/25 14:33 BP 116/70 02/15/25 14:33 Pulse Ox 96 02/15/25 14:33 Oxygen Delivery Method Room Air 02/15/25 14:33 BMI result Body Mass Index 25.6 Const General: alert Eyes Pupils: Equal, round and reactive pupils present Neck Neck: Yes normal visual inspection, Yes full ROM and Yes no lymphadenopathy Chest Chest palpation & inspection: normal inspection of the chest Resp Effort & Inspection: normal respiratory effort Auscultation: no crackles and diminished lung sounds Cardio Rate: regular rate Rhythm: regular rhythm Heart sounds: S1 normal heart sound present and S2 normal heart sound present GI Palpation (GI): Soft to palpation and nontender Auscultation: normal bowel sounds General: Yes no CVA tenderness Back/Spine/Pelvis Back: no CVA tenderness Skin General skin exam: no rashes or lesions noted Neuro Cranial nerves: Yes Equal, round and reactive pupils present Extrem General: Yes no clubbing, cyanosis or edema Assessment & Plan Assessment & Plan (1) Asthma: Code(s): J45.909 - Unspecified asthma, uncomplicated Category: Medical Qualifiers: Asthma severity: moderate Asthma persistence: persistent Asthma complication type: with acute exacerbation Qualified Code(s): J45.41 - Moderate persistent asthma with (acute) exacerbation (2) ODETTE on CPAP: Code(s): G47.33 - Obstructive sleep apnea (adult) (pediatric); Z99.89 - Dependence on other enabling machines and devices Category: Medical (3) Pulmonary nodules: Code(s): R91.8 - Other nonspecific abnormal finding of lung field Category: Medical (4) Insomnia: Code(s): G47.00 - Insomnia, unspecified Category: Medical Qualifiers: Insomnia type: primary Qualified Code(s): F51.01 - Primary insomnia (5) Chronic rhinitis: Code(s): J31.0 - Chronic rhinitis Category: Medical Plan Start Medrol pk Doxycycline if no better Continue Alvesco stopped Spiriva daily MONICO as needed Mucinex OTC Continue APAP every night (typicall only sleep 3-4 hours a night. 80%usage based on her minimal sleep) Lunesta as needed, causing irritability F/U 4-6 months Medications: New doxycycline hyclate 100 mg PO BID 20 caps 0RF 10 days methylprednisolone (Medrol (Scott)) PO PER PKG DIR 21 ea 0RF 6 days Coding Level of Care Code Est Pt Level 4 (89987) Diagnoses Moderate persistent asthma with acute exacerbation J45.41 Asthma severity: moderate Asthma persistence: persistent Asthma complication type: with acute exacerbation ODETTE on CPAP G47.33; Z99.89 Pulmonary nodules R91.8 Primary insomnia F51.01 Insomnia type: primary Chronic rhinitis J31.0 Time Spent (min) 16
--- OUTSIDE RECORDS SUMMARY | 2025-02-15 17:54 | XMS_ITS | Clinical Summary ---
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 Active aspirin 81 mg EC tablet Take by mouth. Activ e calcium carbonate/luis alberto min D3 (CALCIUM 600 WITH VITAMIN D3 ORAL) [...] anxiety. Active MULTIVITAMIN ORAL Take by mouth. Activ e levothyroxine (SYNTHROID, LEVOTHROID) 150 mcg tablet Take 1 Tablet by mouth 5 Times Weekly. Active propranolol LA (Inderal LA) 160 mg 24 hr capsuleIndicat ions:Benign essential hypertension,P alpitations Take 1 capsule (160 mg total) by mouth 1 (one) time each day. Do not crush, chew, or split. 30 capsule 11 11/17/19 25 Active Additional Information Patient taking differently:160 mg oralNightly, Do not crush, chew, or split., Reported on 01/14/2025 tacrolimus (PROTOPIC) 0.1 % ointment Apply 1 Application topically 2 (two) times a day. To face 12/14/19 Active budesonide (PULMICORT) 0.5 mg/2 mL nebulizer solution Take 2 mL (0.5 mg total) by nebulization 2 (two) times a day for 10 days. Rinse mouth with water after use to reduce aftertaste and incidence of candidiasis. Do not swallow. 40 mL 01/16/20 Active ipratropium (ATROVENT) 0.02 % nebulizer solution Take 2.5 mL (0.5 mg total) by nebulization every 6 (six) hours for 10 days. 100 mL 01/16/20 Active simvastatin (ZOCOR) 20 mg tablet TAKE 1 TABLET(20 MG) BY MOUTH AT BEDTIME 90 tablet 2 01/19/20 25 Active simvastatin (Zocor) 20 mg tablet Take 1 tablet (20 mg total) by mouth at bedtime. 90 each 3 09/12/19 25 025 Discontinued pantoprazole (PROTONIX) 40 mg EC tablet Take 1 tablet (40 mg total) by mouth 2 (two) times a day. 60 each 01/16/20 25 025 doxycycline (MONODOX) 100 mg capsule Take 1 capsule (100 mg total) by mouth every 12 (twelve) hours for 10 days. Take with at least 8 ounces (large glass) of water, do not lie down for 30 minutes after. Administer 2 hours before or after multivitamins, antacids, or other products containing polyvalent cations (i.e., calcium, iron, magnesium, selenium, zinc). 20 each 01/16/20 25 025 guaiFENesin (MUCINEX) 600 mg 12 hr tablet Take 1 tablet (600 mg total) by mouth every 12 (twelve) hours for 10 days. Do not crush, chew, or split. 20 each 01/16/20 25 025 cefpodoxime (VANTIN) 200 mg tablet Take 1 tablet (200 mg total) by mouth 2 (two) times a day for 10 days. 20 each 01/16/20 25 025 methylPREDNISo lone (MEDROL DOSPAK) 4 mg tablet Take as directed on package. 21 tablet 01/16/20 025 Active Problems Problem Noted Date Diagnosed Date Nausea & vomiting 01/13/2025 Hypotension 01/13/2025 AMS (altered mental status) 01/13/2025 Sepsis, due to unspecified o rganism, unspecified whether acute organ dysfunction present (CMS/[facility] V24, [facility] V28) 01/13/2025 Chest pain 03/10/2023 Overview (01/10/2024): Last Assessment & Plan: Patient recently seen at [facility] emergency room for ongoing complaints of [...] Type Department Care Team Description 01/25/2025 Telephone [facility] [address] [address] Mj Dale MD 01/18/2025 Telephone [facility] - [facility] [address] [facility] [address] [place] [id number] Bautista Mei MD 01/13/2025 3:11 PM EDT - 01/15/2025 1:37 PM EDT Hospital Encounter [facility] [address] [place] [address] Mersier, Jessica, DO Kokkinos, GueraMD Barron robertson Christopher, MD Bell, Alistair A, MD Japaridze, Anna, MD Hypotension, unspecified hypotension type (Primary Dx); Sepsis, due to unspecified organism, unspecified whether acute organ dysfunction present ([facility] V24, [facility] V28); Hypomagnesemia; Nausea and vomiting, unspecified vomiting type; Aspiration pneumonia of right lower lobe, unspecified aspiration pneumonia type ([facility] V24, [facility] V28) Discharge Disposition: Home or Self Care 12/05/2024 Telephone [facility] - [address] [place] [address] Bautista Mei MD 12/05/2024 Telephone [facility] - [address] [place] [address] Vinay [place] 12/05/2024 Telephone [facility] - [address] [place] [address] Bautista Mei MD 11/17/2024 Telephone [facility] - [address] [place] [address] Alisha Mustafa NP 11/16/2024 2:10 PM EDT Office Visit [facility] - [address] [place] [address] Alisha Mustafa NP Benign essential hypertension (Primary Dx); Palpitations from Last 3 Months Surgical History Surgery Date Site/Laterality Comments CHOLECYSTECTOMY PROCEDURE: HISTORICAL CHOLECYSTECTOMY Medical History Medical History Date Comments Primary hypothyroidism DX:Primar y hypothyroidism Lamont's thyroiditis DX:Esperanza javier's thyroiditis Back pain DX:Back pain Anxiety DX:Anxiety Asthma DX:Asthma Cervical os stenosis DX:Cervical os stenosis Depression, major, recurrent , mild ([facility] V24) DX:Depression, major, recurr ent, mild ([facility]) Headache DX:Headache Migraine DX:Migraine Insomnia DX:Insomnia Left [...] your loved ones. For example, child care giver or elderly care for an older adult? [...] PM EST Office Visit Orthopedic Surgery - [place] [address] [address] Mj Jerez, DPM [address] [address] Health Maintenance Due Date Last [...] BLOOD Routine 01/13/2025 3: 32 PM EDT [facility] 30-74 MINUTES Routine 01/13/2025 3:04 PM EDT LIPID PANEL WITH CHOLESTEROL AND HDL RATIO Routine 08/22/2024 2:02 PM EDT from Last 3 Months or Most Recently Relevant to Health Maintenance Results * Lactate (01/15/2025 8:08 AM EDT) Only the most recent of4 resultswithin the time period is included. [facility] Lactate 1.5 0.4 - 2.0 mmol/L LAB CHEMISTRY METHOD 01/15/2025 8:48 AM EDT [facility] Blood Venous blood specimen / Unknown Venipuncture / Unknown 01/15/2025 8:08 AM EDT 01/15/2025 8:22 AM EDT us Krystina Mao LOAD HAUL DUMP OPERATOR LAB BLOOD ORDERABLES Final Resul t [facility] [address] [place] [address], [place] [phone] * (ABNORMAL) CBC auto differential (01/15/2025 6:07 AM EDT) Only the most recent of3 resultswithin the time period is included. [facility] WBC 22.5(H) 4.8 - 10.8 K/mcL LAB HEMETOLOGY METHOD 01/15/2025 7:25 AM EDT [facility] RBC 3.30(L) 3.80 - 4.80 M/mcL LAB HEMETOLOGY METHOD 01/15/2025 7:25 AM EDT [facility] Hemoglobin 10.9(L) 11.5 - 16.0 g/dL LAB HEMETOLOGY METHOD 01/15/2025 7:25 AM EDT [facility] Hematocrit 32.6(L) 35.0 - 47.0 % LAB HEMETOLOGY METHOD 01/15/2025 7:25 AM EDT [facility] MCV 98.2(H) 79.0 - 98.0 FL LAB HEMETOLOGY METHOD 01/15/2025 7:25 AM EDT [facility] MCH 32.8(H) 27.0 - 32.0 pcg LAB HEMETOLOGY METHOD 01/15/2025 7:25 AM T [facility] MCHC 33.4 32.0 - 37.0 g/dL LAB HEMETOLOGY METHOD 01/15/2025 7:25 AM T [facility] RDW 12.6 11.0 - 15.0 % LAB HEMETOLOGY METHOD 01/15/2025 7:25 AM T [facility] Platelets 203 130 - 400 K/mcL LAB HEMETOLOGY METHOD 01/15/2025 7:25 AM [facility] MPV 11.0 7.0 - 11.0 FL LAB HEMETOLOGY METHOD 01/15/2025 7:25 AM [facility] NRBC 0.0 <1.0 % LAB HEMETOLOGY METHOD 01/15/2025 7:25 AM [facility] NRBC Absolute 0.00 <0.10 K/mcL LAB HEMETOLOGY METHOD 01/15/2025 7:25 AM [facility] Neutrophils Relative 90.5 % LAB HEMETOLOGY METHOD 01/15/2025 7:25 AM [facility] Comment:This is an appended report. These results have been appended to a previously preliminary verified report. Lymphocytes Relative 4.0 % LAB HEMETOLOGY METHOD 01/15/2025 7:25 AM T [facility] Comment:This is an appended report. These results have been appended to a previously preliminary verified report. Monocytes Relative 2.9 % LAB HEMETOLOGY METHOD 01/15/2025 7:25 AM [facility] Comment:This is an appended report. These results have been appended to a previously preliminary verified report. Eosinophils Relative 1.2 % LAB HEMETOLOGY METHOD 01/15/2025 7:25 AM [facility] Comment:This is an appended report. These results have been appended to a previously preliminary verified report. Basophils Relative 0.2 % LAB HEMETOLOGY METHOD 01/15/2025 7:25 AM [facility] Comment:This is an appended report. These results have been appended to a previously preliminary verified report. Immature Granulocytes Relative 1.2 % LAB HEMETOLOGY METHOD 01/15/2025 7:25 AM [facility] Comment:This is an appended report. These results have been appended to a previously preliminary verified report. Neutrophils Absolute 20.33(H) 1.50 - 7.00 K/mcL LAB HEMETOLOGY METHOD 01/15/2025 7:25 AM [facility] Comment:This is an appended report. These results have been appended to a previously preliminary verified report. Lymphocytes Absolute 0.90(L) 1.00 - 5.00 K/mcL LAB HEMETOLOGY METHOD 01/15/2025 7:25 AM [facility] Comment:This is an appended report. These results have been appended to a previously preliminary verified report. Monocytes Absolute 0.65 0.20 - 1.00 K/mcL LAB HEMETOLOGY METHOD 01/15/2025 7:25 AM [facility] Comment:This is an appended report. These results have been appended to a previously preliminary verified report. Eosinophils Absolute 0.27 0.00 - 0.50 K/mcL LAB HEMETOLOGY METHOD 01/15/2025 7:25 AM [facility] Comment:This is an appended report. These results have been appended to a previously preliminary verified report. Basophils Absolute 0.05 0.00 - 0.20 K/mcL LAB HEMETOLOGY METHOD 01/15/2025 7:25 AM [facility] Comment:This is an appended report. These results have been appended to a previously preliminary verified report. Immature Granulocytes Absolute 0.26(H) 0.00 - 0.03 K/mcL LAB HEMETOLOGY METHOD 01/15/2025 7:25 AM EDT [facility] Comment:This is an appended report. These results have been appended to a previously preliminary verified report. Blood Venous blood specimen / Unknown Venipuncture / Unknown 01/15/2025 6:07 AM EDT 01/15/2025 6:48 AM EDT Krystina Briggsyana LAB BLOOD ORDERABLES Final Resul t Performing Organization Address [facility] de Phone Number [facility] [address] [place] [address], [place] [phone] * (ABNORMAL) Phosphorus (01/15/2025 6:07 AM EDT) Only the most recent of2 resultswithin the time period is included. Phosphorus 2.3(L) 2.5 - 4.5 mg/dL LAB CHEMISTRY METHOD 01/15/2025 7:28 AM EDT [facility] Blood Venous blood specimen / Unknown Venipuncture / Unknown 01/15/2025 6:07 AM EDT 01/15/2025 6:47 AM EDT Krystina Mao LOAD HAUL DUMP OPERATOR LAB BLOOD ORDERABLES Final Resul t Performing Organization Address City/[facility]/ZIP Co de Phone Number [facility] [address] [place] [address], [place] [phone] * Magnesium (01/15/2025 6:07 AM EDT) Only the most recent of3 resultswithin the time period is included. Magnesium 1.9 1.9 - 2.6 mg/dL LAB CHEMISTRY METHOD 01/15/2025 7:28 AM EDT [facility] Blood Venous blood specimen / Unknown Venipuncture / Unknown 01/15/2025 6:07 AM EDT 01/15/2025 6:47 AM EDT us Krystina Mao NP LAB BLOOD ORDERABLES Final Resul t [facility] [address] [place] [address], [place] [phone] * (ABNORMAL) Basic metabolic panel (01/15/2025 6:07 AM EDT) Only the most recent of3 resultswithin the time period is included. Sodium 141 133 - 145 mmol/L LAB CHEMISTRY METHOD 01/15/2025 7:28 AM [facility] Potassium 4.0 3.5 - 5.5 mmol/L LAB CHEMISTRY METHOD 01/15/2025 7:28 AM [facility] Chloride 110 96 - 110 mmol/L LAB CHEMISTRY METHOD 01/15/2025 7:28 AM [facility] CO2 25 21 - 32 mmol/L LAB CHEMISTRY METHOD 01/15/2025 7:28 AM [facility] Anion Gap 6 3 - 11 LAB CHEMISTRY METHOD 01/15/2025 7:28 AM [facility] Glucose 136(H) 70 - 100 mg/dL LAB CHEMISTRY METHOD 01/15/2025 7:28 AM [facility] BUN 12 5 - 25 mg/dL LAB CHEMISTRY METHOD 01/15/2025 7:28 AM [facility] Creatinine 0.60 0.50 - 1.10 mg/dL LAB CHEMISTRY METHOD 01/15/2025 7:28 AM [facility] eGFR 101 >=60 mL/min/1. 73m2 LAB CHEMISTRY METHOD 01/15/2025 7:28 AM [facility] Comment:Calculation based on the Chronic Kidney Disease Epidemiology Collaboration (CKD-EPI) equation refit without adjustment for race. BUN/Creatinine Ratio 20.0 LAB CHEMISTRY METHOD 01/15/2025 7:28 AM EDT [facility] Calcium 9.1 8.5 - 10.5 mg/dL LAB CHEMISTRY METHOD 01/15/2025 7:28 AM EDT [facility] Blood Venous blood specimen / Unknown Venipuncture / Unknown 01/15/2025 6:07 AM EDT 01/15/2025 6:47 AM EDT Krystina Mao LAB BLOOD ORDERABLES Final Resul t Performing Organization Address [facility] de Phone Number [facility] [address] [place] [address], * Legionella antigen urine, EIA (01/14/2025 12:16 PM EDT) Legionella Antigen, Ur Negative Negative 01/14/2025 2:34 PM EDT [facility] Urine Urine specimen from urethra / Unknown Non-blood Collection / Unknown 01/14/2025 12:16 PM EDT 01/14/2025 1:17 PM EDT Narrative [facility] - 01/14/2025 2:34 PM EDT Negative for Legionella pneumophilia serogroup 1 antigen. This presumptive result suggests no current or recent infection due to L. pneumophilia serogroup 1. Culture is recommended if Legionella infection is till suspected, as other serogroups and species of Legionella are not detected by this test. Krystina Mao LOAD HAUL DUMP OPERATOR LAB URINE ORDERABLES Final Resul t Performing Organization Address [facility] Co de Phone Number [facility] [address] [place] [address], * TRANSTHORACIC ECHOCARDIOGRAM (TTE) COMPLETE W/ CONTRAST (01/14/2025 8:20 AM EDT) Left Atrium Minor Freeborn 4.7 cm CV PACS Left Atrium Major Freeborn 4.9 cm CV PACS LA Area Sys [...] Definity contrast was given to enhance imaging. Mj Mart MD CV ECHO PROCEDURES Final Re sult * MRSA molecular study (01/13/2025 11:19 PM EDT) MRSA Screen PCR Not Detected Not Detected LAB MICROBIOLOGY METHOD 01/14/2025 8:46 AM EDT [facility] Swab Both anterior nares / Unknown Non-blood Collection / Unknown 01/13/2025 11:19 PM EDT 01/14/2025 12:21 AM EDT Mj Mart MD LAB MICROBIOLOGY - GENERAL ORDERABLES Final Result [facility] [address] [place] [address], [place] [phone] * (ABNORMAL) B-type natriuretic peptide (01/13/2025 10:20 PM EDT) BNP 118(H) <=100 pcg/mL LAB CHEMISTRY METHOD 01/13/2025 11:10 PM EDT [facility] Blood Venous blood specimen / Unknown Venipuncture / Unknown 01/13/2025 10:20 PM EDT 01/13/2025 10:31 PM EDT Isabelle Dawson LOAD HAUL DUMP OPERATOR LAB BLOOD ORDERABLES Fin al Result [facility] [address] [place] [address], [place] [phone] * CT Chest wo Contrast (01/13/2025 10:13 [...] MD on 01/13/2025 22:42:27 Mj Mart MD IMG CT PROCEDURES Final Res ult * (ABNORMAL) Urinalysis with reflex microscopic and culture (01/13/2025 5:45 PM EDT) Specific [place] Urine >1.045(H) 1.003 - 1.030 LAB URINALYSIS - AUTOMATED METHOD 01/13/2025 6:23 PM [facility] pH, Urine 6.5 5.0 - 8.0 pH LAB URINALYSIS - AUTOMATED METHOD 01/13/2025 6:23 PM [facility] Leukocytes, Urine Negative Negative LAB URINALYSIS - AUTOMATED METHOD 01/13/2025 6:23 PM [facility] Nitrite, Urine Negative Negative LAB URINALYSIS - AUTOMATED METHOD 01/13/2025 6:23 PM [facility] Protein, Urine Negative <=Trace mg/dL LAB URINALYSIS - AUTOMATED METHOD 01/13/2025 6:23 PM [facility] Glucose, Urine Negative Negative mg/dL LAB URINALYSIS - AUTOMATED METHOD 01/13/2025 6:23 PM [facility] Ketones, Urine Negative Negative mg/dL LAB URINALYSIS - AUTOMATED METHOD 01/13/2025 6:23 PM [facility] Urobilinogen , Urine 0.2 0.2 - 1.0 mg/dL LAB URINALYSIS - AUTOMATED METHOD 01/13/2025 6:23 PM [facility] Bilirubin, Urine Negative Negative LAB URINALYSIS - AUTOMATED METHOD 01/13/2025 6:23 PM EDT [facility] Blood, Urine Negative Negative LAB URINALYSIS - AUTOMATED METHOD 01/13/2025 6:23 PM EDT [facility] Urine Indwelling urinary catheter / Unknown Non-blood Collection / Unknown 01/13/2025 5:45 PM EDT 01/13/2025 6:14 PM EDT [facility] LAB URINE ORDERABLES Final Re sult [facility] [address] [place] [address], [place] [phone] * Dumont urine culture tube (01/13/2025 5:45 PM EDT) Extra Tube Hold for add-ons. 01/13/2025 8:01 PM EDT [facility] Comment:Auto resulted. Urine Indwelling urinary catheter / Unknown Non-blood Collection / Unknown 01/13/2025 5:45 PM EDT 01/13/2025 6:14 PM EDT [facility] URINE ORDERABLES Final Re sult Performing Organization Address City/[facility]/ZIP Co de Phone Number [facility] [address] [place] [address], [place] [phone] * (ABNORMAL) Manual differential (01/13/2025 5:45 PM EDT) Neutrophils % 63.0 % LAB HEMETOLOGY METHOD 01/13/2025 7:36 PM EDT [facility] Bands % 30.0 % LAB HEMETOLOGY METHOD 01/13/2025 7:36 PM EDT [facility] Lymphocytes % 8.0 % LAB HEMETOLOGY METHOD 01/13/2025 7:36 PM EDT [facility] Monocytes % 0.0 % LAB HEMETOLOGY METHOD 01/13/2025 7:36 PM EDT [facility] Eosinophils % 0.0 % LAB HEMETOLOGY METHOD 01/13/2025 7:36 PM EDT [facility] Basophils % 0.0 % LAB HEMETOLOGY METHOD 01/13/2025 7:36 PM EDT [facility] Neutrophils Absolute Manual 5.48 1.50 - 7.00 K/mcL LAB HEMETOLOGY METHOD 01/13/2025 7:36 PM EDT [facility] Bands Absolute Manual 2.61(H) 0.00 - 0.00 K/mcL LAB HEMETOLOGY METHOD 01/13/2025 7:36 PM EDT [facility] Lymphocytes Absolute 0.70(L) 1.00 - 5.00 K/mcL LAB HEMETOLOGY METHOD 01/13/2025 7:36 PM EDT [facility] Monocytes Absolute Manual 0.00(L) 0.20 - 1.00 K/mcL LAB HEMETOLOGY METHOD 01/13/2025 7:36 PM EDT [facility] Eosinophils Absolute Manual 0.00 0.00 - 0.50 K/mcL LAB HEMETOLOGY METHOD 01/13/2025 7:36 PM EDT [facility] Basophils Absolute Manual 0.00 0.00 - 0.20 K/mcL LAB HEMETOLOGY METHOD 01/13/2025 7:36 PM EDT [facility] Rbc Morphology Present( A) Consistent with indices, Normal for [place] LAB HEMETOLOGY METHOD 01/13/2025 7:36 PM EDT [facility] Comment:RBC: Morphology agre es with CBC Platelet Morphology - WAM See Note(A) Normal LAB HEMETOLOGY METHOD 01/13/2025 7:36 PM EDT [facility] Comment:PLT: Large platelets seen Occasional plt clumps present. Toxic Granules Present Present( A) (none) LAB HEMETOLOGY METHOD 01/13/2025 7:36 PM EDT [facility] Vacuolated Neutrophils Present Present( A) (none) LAB HEMETOLOGY METHOD 01/13/2025 7:36 PM EDT [facility] Blood Venous blood specimen / Unknown Venipuncture / Unknown 01/13/2025 5:45 PM EDT 01/13/2025 6:13 PM EDT us Jessica Serrato DO LAB BLOOD ORDERABLES Final Re sult [facility] [address] [place] [address], * Respiratory virus panel molecular study (01/13/2025 5:33 PM EDT) Adenovirus Detection by PCR Not Detected Not Detected LAB MICROBIOLOGY METHOD 01/13/2025 6:40 PM EDT [facility] Influenza A PCR Not Detected Not Detected LAB MICROBIOLOGY METHOD 01/13/2025 6:40 PM EDT [facility] Influenza B PCR Not Detected Not Detected LAB MICROBIOLOGY METHOD 01/13/2025 6:40 PM EDT [facility] Coronavirus 229E Not Detected Not Detected LAB MICROBIOLOGY METHOD 01/13/2025 6:40 PM EDT [facility] Coronavirus HKU1 Not Detected Not Detected LAB MICROBIOLOGY METHOD 01/13/2025 6:40 PM EDT [facility] Coronavirus OC43 Not Detected Not Detected LAB MICROBIOLOGY METHOD 01/13/2025 6:40 PM EDT [facility] Coronavirus NL63 Not Detected Not Detected LAB MICROBIOLOGY METHOD 01/13/2025 6:40 PM EDT [facility] Parainfluenza Virus 1 Not Detected Not Detected LAB MICROBIOLOGY METHOD 01/13/2025 6:40 PM EDT [facility] Parainfluenza Virus 2 Not Detected Not Detected LAB MICROBIOLOGY METHOD 01/13/2025 6:40 PM EDT [facility] Parainfluenza Virus 3 Not Detected Not Detected LAB MICROBIOLOGY METHOD 01/13/2025 6:40 PM EDT [facility] Parainfluenza Virus 4 Not Detected Not Detected LAB MICROBIOLOGY METHOD 01/13/2025 6:40 PM EDT [facility] RSV PCR Not Detected Not Detected LAB MICROBIOLOGY METHOD 01/13/2025 6:40 PM EDT [facility] Human Metapneumovirus A and B Not Detected Not Detected LAB MICROBIOLOGY METHOD 01/13/2025 6:40 PM EDT [facility] Rhinovirus/Entero virus Not Detected Not Detected LAB MICROBIOLOGY METHOD 01/13/2025 6:40 PM EDT [facility] Bordetella pertussis Not Detected Not Detected LAB MICROBIOLOGY METHOD 01/13/2025 6:40 PM EDT [facility] Bordetella parapertussis Not Detected Not Detected LAB MICROBIOLOGY METHOD 01/13/2025 6:40 PM EDT [facility] Mycoplasma pneumo by PCR Not Detected Not Detected LAB MICROBIOLOGY METHOD 01/13/2025 6:40 PM EDT [facility] Chlamydia pneumoniae Not Detected Not Detected LAB MICROBIOLOGY METHOD 01/13/2025 6:40 PM EDT [facility] SARS COV-2 Not Detected Not Detected LAB MICROBIOLOGY METHOD 01/13/2025 6:40 PM EDT [facility] Swab Both anterior nares / Unknown Non-blood Collection / Unknown 01/13/2025 5:33 PM EDT 01/13/2025 5:47 PM EDT [facility] - 01/13/2025 6:40 PM EDT Testing was performed using the [employer] Respiratory Pathogen PCR Assay. All results must [...] that are below the limit of detection. [facility] MICROBIOLOGY - GENERAL OR DERABLES Final Result Performing Organization Address [facility]/ZIP Co de Phone Number [facility] [address] [place] [address], [place] [phone] * Blood Culture, Peripheral #2 (01/13/2025 5:15 PM EDT) Only the most recent of2 resultswithin the time period is included. Culture, Blood No growth at 5 days 01/18/2025 6:01 PM EDT [facility] Blood Venous blood specimen / Unknown Venipuncture / Unknown 01/13/2025 5:15 PM EDT 01/13/2025 5:[address] [facility] MICROBIOLOGY - GENERAL OR DERABLES Final Result Performing Organization Address [facility] de Phone Number [facility] [address] [place] [address], [place] [phone] * CT Abdomen Pelvis w Contrast (01/13/2025 [...] Signed Date: 01/13/2025 17:00 ET Workstation ID: [id number] Transcribed By: Self Edit Transcribed Date: 01/13/2025 [...] Signed Date: 01/13/2025 17:00 ET Workstation ID: [id number] Transcribed By: Self Edit Transcribed Date: 01/13/2025 16:55 ET us Jessica Serrato DO IMG CT PROCEDURES Final Resul t * Troponin I High Sensitivity (01/13/2025 4:03 PM EDT) [facility] High Sensitivity Troponin I 6 <=54 ng/L LAB CHEMISTRY METHOD 01/13/2025 4:43 PM EDT [facility] Blood Venous blood specimen / Unknown Venipuncture / Unknown 01/13/2025 4:03 PM EDT 01/13/2025 4:13 PM EDT Narrative [facility] - 01/13/2025 4:43 PM EDT High levels of biotin in samples may falsely decrease hsTroponin values. Use caution when interpreting hsTroponin results in patients taking biotin who exhibit renal impairment (eGFR <60) or in patients taking more than 20 mg/day of biotin. us Jessica Serrato DO LAB BLOOD ORDERABLES Final Re sult [facility] [address] [place] [address], * Vitamin B12 and folate (01/13/2025 4:03 PM EDT) [facility] Vitamin B-12 359 250 - 900 pcg/mL LAB CHEMISTRY METHOD 01/13/2025 9:29 PM EDT [facility] Folate 14.0 2.8 - 17.0 ng/ml LAB CHEMISTRY METHOD 01/13/2025 9:29 PM EDT [facility] Blood Venous blood specimen / Unknown Venipuncture / Unknown 01/13/2025 4:03 PM EDT 01/13/2025 4:13 PM EDT us Mj Mart MD LAB BLOOD ORDERABLES Final Result [facility] [address] [place] [address], * (ABNORMAL) Procalcitonin (01/13/2025 4:03 PM EDT) Procalcitonin 1.21(H) <=0.16 ng/mL LAB CHEMISTRY METHOD 01/14/2025 9:26 AM EDT [facility] Blood Venous blood specimen / Unknown Venipuncture / Unknown 01/13/2025 4:03 PM EDT 01/13/2025 4:13 PM EDT Narrative [facility] - 01/14/2025 9:26 AM [...] if any concentrations <2.0 ng/mL are obtained. us Mj Mart MD LAB BLOOD ORDERABLES Final Result Performing Organization Address [facility]/ZIP Co de Phone Number [facility] [address] [place] [address], [place] [phone] * APTT (01/13/2025 4:03 PM EDT) aPTT 25.1 24.1 - 39.3 sec LAB COAGULATION METHOD 01/13/2025 4:24 PM EDT [facility] Blood Venous blood specimen / Unknown Venipuncture / Unknown 01/13/2025 4:03 PM EDT 01/13/2025 4:13 PM EDT Jessica Serrato LAB BLOOD ORDERABLES Final Re sult Performing Organization Address [facility]/ZIP Co de Phone Number [facility] [address] [place] [address], [place] [phone] * Protime-INR (01/13/2025 4:03 PM EDT) [facility] Protime 12.8 10.6 - 13.9 sec LAB COAGULATION METHOD 01/13/2025 4:24 PM EDT [facility] INR 1.0 LAB COAGULATION METHOD 01/13/2025 4:24 PM EDT [facility] Blood Venous blood specimen / Unknown Venipuncture / Unknown 01/13/2025 4:03 PM EDT 01/13/2025 4:13 PM EDT Jessica Serrato LAB BLOOD ORDERABLES Final Re sult Performing Organization Address City/[facility]/ZIP Co de Phone Number [facility] [address] [place] [address], [place] [phone] * Type and Screen (01/13/2025 4:03 PM EDT) ABO Group A 01/13/2025 5:00 PM EDT [facility] Rh Type Positive 01/13/2025 5:00 PM EDT [facility] Antibody Screen Negative 01/13/2025 5:00 PM EDT [facility] Blood Venous blood specimen / Unknown Venipuncture / Unknown 01/13/2025 4:03 PM EDT 01/13/2025 4:13 PM EDT Jessica Serrato DO LAB BLOOD BANK TEST ORDERABLE S Final Result [facility] [address] [place] [address], [place] [phone] * C-reactive protein (01/13/2025 4:03 PM EDT) [facility] C-Reactive Protein <0.29 <=0.50 mg/dL LAB CHEMISTRY METHOD 01/13/2025 9:19 PM EDT [facility] Blood Venous blood specimen / Unknown Venipuncture / Unknown 01/13/2025 4:03 PM EDT 01/13/2025 4:13 PM EDT Mj Mart MD LAB BLOOD ORDERABLES Final Result [facility] [address] [place] [address], [place] [phone] * Thyroid Stimulating Hormone (TSH) (01/13/2025 4:03 PM EDT) Pathologist [facility] TSH 0.60 0.40 - 4.00 mcIU/mL LAB CHEMISTRY METHOD 01/13/2025 5:34 PM EDT [facility] Blood Venous blood specimen / Unknown Venipuncture / Unknown 01/13/2025 4:03 PM EDT 01/13/2025 4:13 PM EDT us Jessica Serrato DO LAB BLOOD ORDERABLES Final Re sult Performing Organization Address [facility] de Phone Number [facility] [address] [place] [address], [place] [phone] * (ABNORMAL) Thyroxine free (01/13/2025 4:03 PM EDT) [facility] Free T4 2.09(H) 0.70 - 1.80 ng/dL LAB CHEMISTRY METHOD 01/13/2025 9:51 PM EDT [facility] Blood Venous blood specimen / Unknown Venipuncture / Unknown 01/13/2025 4:03 PM EDT 01/13/2025 4:13 PM EDT Mj Mart MD LAB BLOOD ORDERABLES Final Result Performing Organization Address [facility] de Phone Number [facility] [address] [place] [address], [place] [phone] * Ammonia (01/13/2025 4:03 PM EDT) [facility] Ammonia 16 11 - 35 mcmol/L LAB CHEMISTRY METHOD 01/13/2025 4:38 PM EDT [facility] Blood Venous blood specimen / Unknown Venipuncture / Unknown 01/13/2025 4:03 PM EDT 01/13/2025 4:14 PM EDT us Jessica Serrato DO LAB BLOOD ORDERABLES Final Re sult Performing Organization Address [facility] de Phone Number [facility] [address] [place] [address], [place] [phone] * (ABNORMAL) Hepatic Function Panel (01/13/2025 4:03 PM EDT) [facility] Total Protein 5.2(L) 6.0 - 8.0 g/dL LAB CHEMISTRY METHOD 01/13/2025 4:41 PM EDT [facility] Albumin 2.8(L) 3.2 - 5.0 g/dL LAB CHEMISTRY METHOD 01/13/2025 4:41 PM EDT [facility] Total Bilirubin 1.2 0.0 - 1.4 mg/dL LAB CHEMISTRY METHOD 01/13/2025 4:41 PM EDT [facility] Bilirubin, Direct 0.3 0.0 - 0.3 mg/dL LAB CHEMISTRY METHOD 01/13/2025 4:41 PM EDT [facility] Bilirubin, Indirect 0.9 0.0 - 1.1 mg/dL LAB CHEMISTRY METHOD 01/13/2025 4:41 PM EDT [facility] ALT (SGPT) 28 10 - 60 unit/L LAB CHEMISTRY METHOD 01/13/2025 4:41 PM EDT [facility] AST (SGOT) 27 10 - 42 unit/L LAB CHEMISTRY METHOD 01/13/2025 4:41 PM EDT [facility] Alkaline Phosphatase 80 42 - 121 unit/L LAB CHEMISTRY METHOD 01/13/2025 4:41 PM EDT [facility] Blood Venous blood specimen / Unknown Venipuncture / Unknown 01/13/2025 4:03 PM EDT 01/13/2025 4:13 PM EDT Jessica Serrato DO LAB BLOOD ORDERABLES Final Re sult [facility] [address] [place] [address], * XR Chest 1 View (01/13/2025 3:48 [...] Signed Date: 01/13/2025 16:05 ET Workstation ID: [id number] Transcribed By: Self Edit Transcribed Date: 01/13/2025 [...] Signed Date: 01/13/2025 16:05 ET Workstation ID: [id number] Transcribed By: Self Edit Transcribed Date: 01/13/2025 15:57 ET us Jessica Serrato DO IMG XR PROCEDURES Final Resul t * 12-Lead ECG (01/13/2025 3:38 PM EDT) Ventricular Rate ECG 67 BPM GEMUSE Atrial Rate 67 BPM GEMUSE P-R Interval 170 ms GEMUSE QRS Duration 80 ms GEMUSE Q-T Interval 434 ms GEMUSE QTc 458 ms GEMUSE P Wave Freeborn 95 degrees GEMUSE R Freeborn 3 degrees GEMUSE T Free[place] 50 degrees GEMUSE ECG Interpretation Normal sinus rhythm Normal ECG When compared with ECG of 20-FEB-2024 22:54, T wave inversion no longer evident in Inferior leads Confirmed by Naeem MEI JOHN ([id number]) on 01/14/2025 11:45:25 AM GEMUSE 01/13/2025 3:38 PM EDT 01/14/2025 11:45 AM EDT Jessica Serrato DO ECG ORDERABLES Final Result GEMUSE * (ABNORMAL) POCT Glucose, blood (01/13/2025 3:32 PM EDT) [facility] Glucose POCT 105(H) 70 - 100 mg/dL 01/13/2025 3:55 PM EDT [facility] Blood Capillary blood specimen / Unknown 01/13/2025 3:32 PM EDT 01/13/2025 3:57 PM EDT Jessica Serrato DO LAB POINT OF CARE TE ST DOCKED DEVICE UNSOLICITED RESULTS Final Result Performing Organization Address City/[facility]/ZIP Co de Phone Number [facility] [address] [place] [address], [place] [phone] * [place] CRITICAL CARE 30-74 MINUTES (01/13/2025 3:04 PM EDT) Narrative Jessica Serrato DO - 01/13/2025 3:04 PM EDT Jessica Serrato DO 02/01/2025 3:46 PM Critical Care Performed by: Jessica Serrato DO Authorized by: Jessica Serrato DO Critical care provider statement: Critical care time (minutes): 45 Total face to face critical care time (minutes): 35 Critical care was necessary to treat or prevent imminent or life-threatening deterioration of the following conditions: Sepsis and shock Critical care was time spent personally by me on the following activities: Development of treatment plan with patient or surrogate, examination of patient, evaluation of patient's response to treatment, ordering and performing treatments and interventions, ordering and review of laboratory studies and re-evaluation of patient's condition Face to face critical care was time spent personally by me on the following activities: Discussions with consultants, examination of patient, ordering and review of laboratory studies, review of old charts and re-evaluation of patient's condition us Jessica Serrato DO IN CLINIC/BEDSIDE ORDERABLES Final Result * (ABNORMAL) Lipid panel with cholesterol and HDL ratio (08/22/2024 2:02 PM EDT) Pathologist [facility] Cholesterol Total 206(H) 100 - 199 mg/dL [facility] Triglycerides 105 0 - 149 mg/dL [facility] HDL Cholesterol 72 >39 mg/dL [facility] VLDL Cholesterol Calculated 18 5 - 40 mg/dL [facility] LDL Chol Calc ([facility]) 116(H) 0 - 99 mg/dL [facility] Chol/HDL Ratio 2.9 0.0 - 4.4 ratio [facility] Comment: T. Chol/HDL Ratio Men Women 1/2 Avg.Risk 3.4 3.3 Avg.Risk 5.0 4.4 2X Avg.Risk 9.6 7.1 3X Avg.Risk 23.4 11.0 08/22/2024 2:02 PM EDT 08/22/2024 Narrative [facility] - 08/23/2024 6:07 PM EDT Performed at: - [facility] [id number] Health Systems Analyst: Toshia Larson MD, Phone: [phone] us Bautista Mei MD LAB BLOOD ORDERABLES Final Res ult [facility] from Last 3 Months or Most Recently Relevant to Health Maintenance Insurance [facility] Advance Directives * Full Code - Confirmed [...] currently active code status orders. 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
--- OUTSIDE RECORDS SUMMARY | 2025-02-15 17:54 | XMS_ITS | Continuity of Care Document ---
Author Organization [facility] Address [address] [place] [address] Phone [phone] Problems Active Problems Provider Date Essential hypertension Dennis Elliott M.D. O nset: 11/28/2024 Hypercholesterolemia Dennis Elliott M.D. Ons et: 11/28/2024 Social History Type Date Description Comments Sex Female Sex Unknown Allergies and adverse reactions Active Allergies Criticality Reaction Severity Comments Date Morphine Unable to assess criticality Palpitations 11/28/2024 Medications Active Medications SIG Qnty Indications Order ing Provider Date [id number] Tablets take 1 tablet by mouth 5 1/2 per week Dennis Elliott M.D. 01/07/2022 Lorazepam0.5mg Tablets Take 1 Tablet By Mouth Twice Daily as Needed For Anxiety Unknown Propranolol HCL AT238ve Caps ER 24HR 1 tab by mouth every day Unknown [id number] Tablets 1 tab by mouth every night 90tabs Unknown [id number] Tablets Dispers Dissolve 1 Tablet On The Tongue Daily as Needed For Migraine Headache. August Repea Unknown Zxgavsp19lch/Act Aerosol Inhale 1 puff By Mouth Twice Daily Nathan Pantoja Levalbuterol HCL1.25mg/3ML Nebulizer Use A Vial Via Nebulizer Twice Daily Nathan Pantoja Matxjjfpjnl0qr Tablets Take 1 Tablet By Mouth AT Bedtime Nathan Pantoja Cetirizine WBP87jq Tablets Take 2 Tablets By Mouth Daily [...] TSH 1.150 uIU/mL 0.450-4.500 1 TSH 05/04/2023 [facility] TSH 2.06 uIU/mL (0.4-4.2) TSH 12/03/2022 [facility] TSH 1.22 uIU/mL (0.4-4.2) TSH 09/30/2022 [facility] TSH 2.74 uIU/mL (0.4-4.2) TSH 07/28/2022 [facility] TSH 1.82 uIU/mL (0.4-4.2) TSH 04/14/2022 [facility] TSH 3.74 uIU/mL (0.4-4.2) TSH 03/24/2022 [facility] TSH 6.53 uIU/mL High (0.4-4.2) TSH 02/18/2022 [facility] TSH <pending> TSH 02/18/2022 [facility] TSH <pending> TSH 12/29/2021 [facility] TSH 0.30 uIU/mL Low [...]
== END 2025-02-15 14:53 | disposition home or self-care (01) ==
LOC: HO.HPS 14:29
PROVIDERS: PCP Internal Medicine; Visit Provider Hospitalist
DX: J45.41 Moderate persistent asthma with (acute) exacerbation (principal); G47.33 Obstructive sleep apnea (adult) (pediatric); Z99.89 Dependence on other enabling machines and devices; R91.8 Other nonspecific abnormal finding of lung field; F51.01 Primary insomnia; J31.0 Chronic rhinitis
CPT/HCPCS: 99214